=== PATIENT | male | born 1970 | race American Indian/Alaskan Native ===

== ENCOUNTER 2016-12-08 18:24 | Emergency (ER) | payer SELFPAY | END 2016-12-08 20:40 | disposition left against medical advice (07) | LOC: ED 18:24 | DX: Z53.21 Procedure and treatment not carried out due to patient leaving prior to being seen by health care provider (principal) ==

== ENCOUNTER 2020-08-25 08:12 | Inpatient (IN) | payer OTHER ==
[2020-08-25 09:14] LABS: Bacteria,Urine 1+ /HPF (Negative); Bilirubin,Urine NEG (Negative); Blood,Urine NEG (Negative); Color,Urine Amber (Yellow); Mucus,Urine 3+ /HPF
[2020-08-25 09:50] LABS: Hematocrit 48.1 % (35.5-45.6); Hemoglobin 16.8 gm/dl (11.8-15.2); Mean Corpuscular HGB Conc 35 % (32-34); Mean Corpuscular Volume 95 fl (84-94); Red Blood Count 5.07 M/mm3 (3.65-5.03); Red Cell Distribution Width 14.2 % (13.2-15.2)
[2020-08-25 10:14] LABS: Alanine Aminotransferase 25 units/L (7-56); Albumin 5.3 g/dL (3.9-5); BUN/Creatinine Ratio 21; Blood Urea Nitrogen 25 mg/dL (9-20); Calcium 10.7 mg/dL (8.4-10.2); Hemolysis Index 2
[2020-08-25 11:48] LABS: Large Platelets Rare; Platelet Clumps Rare; Platelet Estimate Consistent w Auto; RBC Morphology Normal; Total Cells Counted 100
[2020-08-25 13:01] LABS: Platelet Count 132 K/mm3 (140-440)
[2020-08-25] MEDS ORDERED: FAMOTIDINE 20 MG/2 ML INJ IV ONE (14:17)
[2020-08-25] MEDS ORDERED: SODIUM CHLORIDE 0.9% 1000 ML 1,000 ML IV ONE ×2 (14:17→16:31)
[2020-08-25] MEDS ORDERED: ONDANSETRON 4 MG/2 ML INJ IV ONE (14:17)
--- NOTE | 2020-08-25 16:23 | Cat Scan Report ---
CT ABDOMEN AND PELVIS WITH CONTRAST INDICATION / CLINICAL INFORMATION: Abdominal distention. TECHNIQUE: Axial CT images were obtained through the abdomen and pelvis after 100 cc Omnipaque [address] scans at this location are performed using CT dose reduction for ALARA by means of automated exposure control. COMPARISON: None available. FINDINGS: LOWER CHEST: No significant abnormality. LIVER: No significant abnormality. GALLBLADDER: Contracted and not well evaluated. BILE DUCTS: No significant abnormality. PANCREAS: No significant abnormality. SPLEEN: No significant abnormality. ADRENALS: No significant abnormality. RIGHT KIDNEY / URETER: No significant abnormality. LEFT KIDNEY / URETER: No significant abnormality. STOMACH / SMALL BOWEL: No significant abnormality of the stomach. Generalized moderate dilatation of the small bowel is noted with fluid seen throughout the majority of the small bowel along with scatte red air-fluid levels. There is a suspected transition point in the right lower quadrant along the ter jono ileum approximately at the level of image 56 of series 4. No other significant abnormality is n oted. COLON: No significant abnormality. APPENDIX: No significant abnormality. PERITONEUM: No free fluid. No free air. No fluid collection. LYMPH NODES: No significant adenopathy. AORTA / ARTERIES: The aorta is normal in caliber with moderate generalized atherosclerosis. IVC / VEINS: No significant abnormality. URINARY BLADDER: No significant abnormality. REPRODUCTIVE ORGANS: No significant abnormality. ADDITIONAL FINDINGS: None. SKELETAL SYSTEM: No significant abnormality. IMPRESSION: 1. Small bowel obstruction with a suspected transition point in the right lower quadrant as above. 2. No other acute findings. Signer Name: Davis García MD Signed: 08/25/2020 4:19 PM Workstation Name: [id number]
[2020-08-25] MEDS ORDERED: MORPHINE 4 MG/1 ML INJ IV ONE (16:31)
[2020-08-25] MEDS ORDERED: LORazepam 2 MG/ML VIAL IV ONE (16:31)
--- NOTE | 2020-08-25 16:33 | History and Physical Report ---
History of Present Illness Chief complaint: My stomach hurts History of present illness: 49 YO Male with HTN, CAD S/P Stent Placement, [place], Nicotine Dependence presents to ED for evaluation. Patient reports "my stomach hurts". Patient states that he has experienced abdominal discomfort, distention, and unable to keep food down over the past 2 days with persistent symptoms over the same timeframe. Patient denies flatus as well as bowel movement during the same timeframe. Patient transported to [facility] via private vehicle for further care and evaluation of the aforementioned symptoms. The patient was seen and evaluated in the emergency department. All lab and imaging studies reviewed. Patient underwent CT scan of the abdomen pelvis and was found to have a small bowel obstruction, volume depletion, as well as hyponatremia. Patient admitted to surgical floor and treated with bowel rest and IV fluid resuscitation therapy, as well as pain control. Surgical team consulted in ED. Patient denies fever, chills, chest pain, palpitation, productive cough, skin rash, recent contact, or known exposure to COVID-19. Prior admission on 07/02/2015 reviewed. All medication listed at time of admission has been reconciled. Past History Past Medical History: hypertension Past Surgical History: Other (Stent placement) Social history: single, smoking Family history: hypertension Medications and Allergies Allergies Allergy/AdvReac Type Severity Reaction Status Date / Time No Known Allergies Allergy Verified 08/25/20 08:15 Home Medications Medication Instructions Recorded Confirmed Last Taken Type LORazepam [Ativan] 1 mg PO Q4H PRN #30 tablet 06/23/15 Unknown Rx carvediloL [Coreg] 6.25 mg PO BID #60 tablet 06/23/15 Unknown Rx lisinopriL [Zestril TAB] 10 mg PO QDAY #30 tablet 06/23/15 Unknown Rx Active Meds: Active Medications Sodium Chloride (Nacl 0.9% 1000 Ml) 1,000 mls @ 250 mls/hr IV ONCE ONE Stop: 08/25/20 20:30 Review of Systems Constitutional: anorexia, no weight loss, no weight gain, no chills, no sweats Ears, nose, mouth and throat: no ear pain, no ear discharge, no tinnitis, no decreased hearing Cardiovascular: no chest pain, no orthopnea, no rapid/irregular heart beat, no edema, no lightheadedness Respiratory: no cough, no cough with sputum, no shortness of breath, no dyspnea on exertion Gastrointestinal: abdominal pain, no constipation, no hematemesis, no heartburn, no belching Genitourinary Male: no hematuria, no nocturia Rectal: no pain, no incontinence, no bleeding Musculoskeletal: no neck stiffness, no shooting arm pain, no arm numbness/tingling, no shooting leg pain, no leg numbness/tingling Integumentary: no rash, no pruritis, no wounds, no jaundice, no boils Neurological: no head injury, no transient paralysis, no weakness, no numbness, no tingling, no seizures, no syncope, no tremors Psychiatric: no anxiety, no memory loss, no sleep disturbances, no insomnia, no hypersomnia, no change in libido, no disorientation Endocrine: no cold intolerance, no heat intolerance, no excessive thirst, no polydipsia, no nocturia, no excessive sweating Hematologic/Lymphatic: no easy bruising, no easy bleeding, no lymphadenopathy Allergic/Immunologic: no urticaria, no persistent infections, no anaphylaxis Exam - Constitutional Vitals: Temp Pulse Resp BP Pulse Ox 98.9 F 129 H 20 150/105 96 08/25/20 08:20 08/25/20 08:20 08/25/20 08:20 08/25/20 08:20 08/25/20 08:20 General appearance: Present: mild distress - EENT Eyes: Present: PERRL ENT: hearing intact, clear oral mucosa - Neck Neck: Present: supple, normal ROM - Respiratory Respiratory effort: normal Respiratory: bilateral: CTA - Cardiovascular Heart Sounds: Present: S1 & S2. Absent: rub, click - Extremities Extremities: pulses symmetrical, No edema Peripheral Pulses: within normal limits - Abdominal General gastrointestinal: Present: soft, non-tender, distended, normal bowel nnamdi nds, hypoactive bowel sounds Male genitourinary: Present: normal - Integumentary Integumentary: Present: clear, warm, dry - Musculoskeletal Musculoskeletal: gait normal, strength equal bilaterally - Psychiatric Psychiatric: appropriate mood/affect, intact judgment & insight - Neurologic Neurologic: CNII-XII intact, moves all extremities Results - Labs CBC & Chem 7: 08/25/20 09:15 08/25/20 09:15 Labs: Abnormal lab results 06/10/21 06/10/21 06/10/21 Range/Units 08:34 09:15 09:15 RBC 5.07 H (3.65-5.03) M/mm3 Hgb 16.8 H (11.8-15.2) gm/dl Hct 48.1 H (35.5-45.6) % MCV 95 H (84-94) fl MCH 33 H (28-32) pg MCHC 35 H (32-34) % Plt Count 132 L (140-440) K/mm3 Monocytes % (Manual) 16.0 H (0.0-7.3) % Lymphocytes # (Manual) 1.1 L (1.2-5.4) K/mm3 Sodium 133 L (137-145) mmol/L Chloride 88.8 L (98-107) mmol/L Carbon Dioxide 32 H (22-30) mmol/L BUN 25 H (9-20) mg/dL Glucose 117 H (75-100) mg/dL Calcium 10.7 H (8.4-10.2) mg/dL Total Bilirubin 1.50 H (0.1-1.2) mg/dL Total Protein 8.4 H (6.3-8.2) g/dL Albumin 5.3 H (3.9-5) g/dL Urine WBC (Auto) 7.0 H (0.0-6.0) /HPF Assessment and Plan - Patient Problems (1) Small bowel obstruction due to adhesions Current Visit: Yes Status: Acute Plan to address problem: CT scan abdomen and pelvis, serial abdominal exam, bowel rest, IV fluid resuscitation therapy, surgical team consulted in ED, NG tube placement as per surgical team. (2) Nicotine dependence Current Visit: Yes Status: Acute Qualifiers: Nicotine product type: cigarettes Substance use status: in withdrawal Qualified Code(s): F17.213 - Nicotine dependence, cigarettes, with withdrawal Plan to address problem: Smoking cessation counseling, supportive care, behavior change counseling, +15 minutes. (3) Hyponatremia Current Visit: Yes Status: Acute Plan to address problem: IV fluid resuscitation therapy, BMP, repeat BMP in a.m. (4) CAD (coronary artery disease) Current Visit: Yes Status: Acute Plan to address problem: Risk factor reduction, supportive care. (5) DVT prophylaxis Current Visit: Yes Status: Acute Plan to address problem: SCD to bilateral lower extremities while in bed, patient is ambulatory
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
[2020-08-25] MEDS ORDERED: ALBUTEROL 2.5 MG/3 ML NEBU IH PRN (17:12)
[2020-08-25] MEDS ORDERED: ACETAMINOPHEN 325 MG TAB PO PRN (17:12)
[2020-08-25] MEDS ORDERED: SODIUM CHLORIDE 0.9% 1000 ML 1,000 ML IV SCH (17:30)
[2020-08-25] MEDS: D5NS W/KCL 20 MEQ 20 MEQ/1,000 ML BAG IV SCH (20:40)
[2020-08-25] MEDS: hydrALAZINE 20 MG/1 ML INJ IV PRN (20:43)
[2020-08-25] MEDS ORDERED: MORPHINE 2 MG/1 ML INJ IV ONE (22:30)
[2020-08-26] MEDS: D5NS W/KCL 20 MEQ 20 MEQ/1,000 ML BAG IV SCH ×2 (04:47→20:25)
[2020-08-26] MEDS: hydrALAZINE 20 MG/1 ML INJ IV PRN (04:48)
[2020-08-26] MEDS: ONDANSETRON 4 MG/2 ML INJ IV PRN (04:48)
[2020-08-26] MEDS: MORPHINE 2 MG/1 ML INJ IV PRN ×2 (04:49→22:55)
[2020-08-26 05:08] LABS: Hematocrit 42.3 % (35.5-45.6); Hemoglobin 14.5 gm/dl (11.8-15.2); Mean Corpuscular HGB Conc 34 % (32-34); Mean Corpuscular Volume 95 fl (84-94); Red Blood Count 4.48 M/mm3 (3.65-5.03); Red Cell Distribution Width 13.9 % (13.2-15.2)
[2020-08-26 05:10] LABS: Platelet Count 124 K/mm3 (140-440)
[2020-08-26 05:24] LABS: Alanine Aminotransferase 19 units/L (7-56); Albumin 4.2 g/dL (3.9-5); BUN/Creatinine Ratio 26; Blood Urea Nitrogen 21 mg/dL (9-20); Calcium 9.3 mg/dL (8.4-10.2); Hemolysis Index 3
[2020-08-26 07:37] LABS: Total Cells Counted 100
[2020-08-26 07:38] LABS: Large Platelets Few; Platelet Estimate Consistent w Auto; RBC Morphology Normal
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
[2020-08-26] MEDS ORDERED: hydrALAZINE 20 MG/1 ML INJ IV PRN (10:00)
--- NOTE | 2020-08-26 11:45 | Progress Note ---
Assessment and Plan Assessment and plan: 49 YO Male with HTN, CAD S/P Stent Placement, VA, Nicotine Dependence presents to ED for evaluation. Patient reports "my stomach hurts". Patient states that he has experienced abdominal discomfort, distention, and unable to keep food down over the past 2 days with persistent symptoms over the same timeframe. Patient denies flatus as well as bowel movement during the same timeframe. Patient transported to [facility] via private vehicle for further care and evaluation of the aforementioned symptoms. The patient was seen and evaluated in the emergency department. All lab and imaging studies reviewed. Patient underwent CT scan of the abdomen pelvis and was found to have a small bowel obstruction, volume depletion, as well as hyponatremia. Patient admitted to surgical floor and treated with bowel rest and IV fluid resuscitation therapy, as well as pain control. Surgical team consulted in ED. Patient denies fever, chills, chest pain, palpitation, productive cough, skin rash, recent contact, or known exposure to COVID-19. Prior admission on 07/02/2015 reviewed. All medication listed at time of admission has been reconciled. 08/26: Continue supportive care. Patient reports to me that he drinks alcohol and has withdrawal symptoms when not drinking. We will start him on CIWA protocol in addition to banana bag with vitamins. Continue managementindicated by surgery. Patient has mild elevation in total bilirubin is also a concern for possible underlying UTI. Blood pressure mildly elevated will also address this. 15 minutes counseling provided to the patient on lifestyle modification and preventive care including tobacco use and alcohol use. He verbalized understanding (1) Small bowel obstruction due to adhesions Current Visit: Yes Status: Acute Plan to address problem: CT scan abdomen and pelvis, serial abdominal exam, bowel rest, IV fluid resuscitation therapy, surgical team consulted in ED, NG tube placement as per surgical team. (2) Nicotine dependence Current Visit: Yes Status: Acute Qualifiers: Nicotine product type: cigarettes Substance use status: in withdrawal Qualified Code(s): F17.213 - Nicotine dependence, cigarettes, with withdrawal Plan to address problem: Smoking cessation counseling, supportive care, behavior change counseling, +15 minutes. (3) Hyponatremia Current Visit: Yes Status: Acute Plan to address problem: IV fluid resuscitation therapy, BMP, repeat BMP in a.m. (4) CAD (coronary artery disease) Current Visit: Yes Status: Acute Plan to address problem: Risk factor reduction, supportive care. (5) EtOH use disorder CIWA protocol as indicated above (6) DVT prophylaxis Current Visit: Yes Status: Acute Plan to address problem: SCD to bilateral lower extremities while in bed, patient is ambulatory History Interval history: Patient seen and examined, still with abdominal pain and also reports irration at the back of throat site of NGT. Hospitalist Physical - Physical exam Narrative exam: General appearance: Present: mild distress, NGT inplace - EENT Eyes: Present: PERRL ENT: hearing intact, clear oral mucosa - Neck Neck: Present: supple, normal ROM - Respiratory Respiratory effort: normal Respiratory: bilateral: CTA - Cardiovascular Heart Sounds: Present: S1 & S2. Absent: rub, click - Extremities Extremities: pulses symmetrical, No edema Peripheral Pulses: within normal limits - Abdominal General gastrointestinal: Present: soft, non-tender, distended, normal bowel sounds, hypoactive bowel sounds,. Soft easily reducible periumbilical hernia. Male genitourinary: Present: normal - Integumentary Integumentary: Present: clear, warm, dry - Musculoskeletal Musculoskeletal: gait normal, strength equal bilaterally - Psychiatric Psychiatric: appropriate mood/affect, intact judgment & insight - Neurologic Neurologic: CNII-XII intact, moves all extremities - Constitutional Vitals: Temp Pulse Resp BP Pulse Ox 98.6 F 85 22 155/100 98 08/26/20 07:25 08/26/20 07:25 08/26/20 07:25 08/26/20 07:25 08/26/20 10:50 General appearance: Present: mild distress Results - Labs CBC & Chem 7: 08/26/20 04:20 08/26/20 04:20 Labs: Laboratory Last Values WBC 4.6 K/mm3 (4.5-11.0) 08/26/20 04:20 RBC 4.48 M/mm3 (3.65-5.03) 08/26/20 04:20 Hgb 14.5 gm/dl (11.8-15.2) 08/26/20 04:20 Hct 42.3 % (35.5-45.6) 08/26/20 04:20 MCV 95 fl (84-94) H 08/26/20 04:20 MCH 32 pg (28-32) 08/26/20 04:20 MCHC 34 % (32-34) 08/26/20 04:20 RDW 13.9 % (13.2-15.2) 08/26/20 04:20 Plt Count 124 K/mm3 (140-440) L 08/26/20 04:20 [place] % (Auto) [employer] 08/26/20 04:20 Add Manual Diff Complete 08/26/20 04:20 Total Counted 100 08/26/20 04:20 Seg Neuts % (Manual) 67.0 % (40.0-70.0) 08/26/20 04:20 Lymphocytes % (Manual) 21.0 % (13.4-35.0) 08/26/20 04:20 Monocytes % (Manual) 12.0 % (0.0-7.3) H 08/26/20 04:20 Eosinophils % (Manual) 1.0 % (0.0-4.3) 08/25/20 09:15 Basophils % (Manual) 1.0 % (0.0-1.8) 08/25/20 09:15 Nucleated RBC % Not Reportable 08/26/20 04:20 Seg Neutrophils # Man 3.1 K/mm3 (1.8-7.7) 08/26/20 04:20 Band Neutrophils # 0.0 K/mm3 08/26/20 04:20 Lymphocytes # (Manual) 1.0 K/mm3 (1.2-5.4) L 08/26/20 04:20 Abs React Lymphs (Man) 0.0 K/mm3 08/26/20 04:20 Monocytes # (Manual) 0.6 K/mm3 (0.0-0.8) 08/26/20 04:20 Eosinophils # (Manual) 0.0 K/mm3 (0.0-0.4) 08/26/20 04:20 Basophils # (Manual) 0.0 K/mm3 (0.0-0.1) 08/26/20 04:20 Metamyelocytes # 0.0 K/mm3 08/26/20 04:20 Myelocytes # 0.0 K/mm3 08/26/20 04:20 Promyelocytes # 0.0 K/mm3 08/26/20 04:20 Blast Cells # 0.0 K/mm3 08/26/20 04:20 WBC Morphology Not Reportable 08/26/20 04:20 Hypersegmented Neuts Not Reportable 08/26/20 04:20 Hyposegmented Neuts Not Reportable 08/26/20 04:20 Hypogranular Neuts Not Reportable 08/26/20 04:20 Smudge Cells Not Reportable 08/26/20 04:20 Toxic Granulation Not Reportable 08/26/20 04:20 Toxic Vacuolation Not Reportable 08/26/20 04:20 Dohle Bodies Not Reportable 08/26/20 04:20 Pelger-Huet Anomaly Not Reportable 08/26/20 04:20 Layla Rods Not Reportable 08/26/20 04:20 Platelet Estimate Consistent w auto 08/26/20 04:20 Clumped Platelets Not Reportable 08/26/20 04:20 Plt Clumps, EDTA Not Reportable 08/26/20 04:20 Large Platelets Few 08/26/20 04:20 Giant Platelets Not Reportable 08/26/20 04:20 Platelet Satelliting Not Reportable 08/26/20 04:20 Plt Morphology Comment Not Reportable 08/26/20 04:20 RBC Morphology Normal 08/26/20 04:20 Dimorphic RBCs Not Reportable 08/26/20 04:20 Polychromasia Not Reportable 08/26/20 04:20 Hypochromasia Not Reportable 08/26/20 04:20 Poikilocytosis Not Reportable 08/26/20 04:20 Anisocytosis Not Reportable 08/26/20 04:20 Microcytosis Not Reportable 08/26/20 04:20 Macrocytosis Not Reportable 08/26/20 04:20 Spherocytes Not Reportable 08/26/20 04:20 Pappenheimer Bodies Not Reportable 08/26/20 04:20 Sickle Cells Not Reportable 08/26/20 04:20 Target Cells Not Reportable 08/26/20 04:20 Tear Drop Cells Not Reportable 08/26/20 04:20 Ovalocytes Not Reportable 08/26/20 04:20 Helmet Cells Not Reportable 08/26/20 04:20 [place] Bodies Not Reportable 08/26/20 04:20 [place] Rings Not Reportable 08/26/20 04:20 [place]yler Cells Not Reportable 08/26/20 04:20 Bite Cells Not Reportable 08/26/20 04:20 Crenated Cell Not Reportable 08/26/20 04:20 Elliptocytes Not Reportable 08/26/20 04:20 Acanthocytes (Spur) Not Reportable 08/26/20 04:20 Rouleaux Not Reportable 08/26/20 04:20 Hemoglobin C Crystals Not Reportable 08/26/20 04:20 Schistocytes Not Reportable 08/26/20 04:20 Malaria parasites Not Reportable 08/26/20 04:20 Adam Bodies Not Reportable 08/26/20 04:20 Hem Pathologist Commnt No 08/26/20 04:20 Sodium 135 mmol/L (137-145) L 08/26/20 04:20 Potassium 3.7 mmol/L (3.6-5.0) 08/26/20 04:20 Chloride 96.4 mmol/L (98-107) L 08/26/20 04:20 Carbon Dioxide 29 mmol/L (22-30) 08/26/20 04:20 Anion Gap 13 mmol/L 08/26/20 04:20 BUN 21 mg/dL (9-20) H 08/26/20 04:20 Creatinine 0.8 mg/dL (0.8-1.3) 08/26/20 04:20 Estimated GFR > 60 ml/min 08/26/20 04:20 BUN/Creatinine Ratio 26 % 08/26/20 04:20 Glucose 113 mg/dL (75-100) H 08/26/20 04:20 POC Glucose 124 mg/dL (70-105) H 08/25/20 22:50 Calcium 9.3 mg/dL (8.4-10.2) 08/26/20 04:20 Total Bilirubin 1.30 mg/dL (0.1-1.2) H 08/26/20 04:20 AST 18 units/L (5-40) 08/26/20 04:20 ALT 19 units/L (7-56) 08/26/20 04:20 Alkaline Phosphatase 60 units/L (35-129) 08/26/20 04:20 Total Protein 7.1 g/dL (6.3-8.2) 08/26/20 04:20 Albumin 4.2 g/dL (3.9-5) 08/26/20 04:20 Albumin/Globulin Ratio 1.4 % 08/26/20 04:20 Urine Color [place] (Yellow) 08/25/20 08:34 Urine Turbidity Slightly-cloudy (Clear) 08/25/20 08:34 Urine pH 5.0 (5.0-7.0) 08/25/20 08:34 Ur Specific [place] 1.027 (1.003-1.030) 08/25/20 08:34 Urine Protein 100 mg/dl mg/dL (Negative) 08/25/20 08:34 Urine Glucose (UA) Neg mg/dL (Negative) 08/25/20 08:34 Urine Ketones Tr mg/dL (Negative) 08/25/20 08:34 Urine Blood Neg (Negative) 08/25/20 08:34 Urine Nitrite Neg (Negative) 08/25/20 08:34 Urine Bilirubin Neg (Negative) 08/25/20 08:34 Urine Urobilinogen 4.0 mg/dL (<2.0) 08/25/20 08:34 Ur Leukocyte Esterase Neg (Negative) 08/25/20 08:34 Urine WBC (Auto) 7.0 /HPF (0.0-6.0) H 08/25/20 08:34 Urine RBC (Auto) 2.0 /HPF (0.0-6.0) 08/25/20 08:34 U Epithel Cells (Auto) 1.0 /HPF (0-13.0) 08/25/20 08:34 Urine Bacteria (Auto) 1+ /HPF (Negative) 08/25/20 08:34 Urine Mucus 3+ /HPF 08/25/20 08:34 Yun/IV: Voiding Method Toilet Active Medications - Current Medications Current Medications: Generic Name Dose Route Start Last Admin Trade Name Freq PRN Reason Stop Dose Admin Acetaminophen 650 mg 08/25/20 17:12 Acetaminophen 325 Mg Tab PO Q4H PRN Pain MILD(1-3)/Fever >100.5/MENJIVAR Albuterol 2.5 mg 08/25/20 17:12 Albuterol 2.5 Mg/3 Ml Nebu IH Q4HRT PRN Shortness Of Breath Benzocaine/Menthol 1 each 08/26/20 11:30 Benzocaine/Menthol Lozenge MM Q2H PRN Sore Throat Enalaprilat 1.25 mg 08/26/20 12:00 Enalaprilat 2.5 Mg/2 Ml Inj IV Q6HR BRIAN Hydralazine HCl 10 mg 08/26/20 10:00 Hydralazine 20 Mg/1 Ml Inj IV Q4HR PRN Hypertension Potassium Chloride/Dextrose/Sod Cl 20 meq in 1,000 mls @ 125 mls/hr 08/25/20 18:00 08/26/20 04:47 D5w/Ns W/Kcl 20meq IV 125 mls/hr DIRECT BRIAN Administration Lorazepam 1 mg 08/25/20 17:14 Lorazepam 2 Mg/Ml Vial IV Q8H PRN Agitation Morphine Sulfate 2 mg 08/26/20 04:37 08/26/20 04:49 Morphine 2 Mg/1 Ml Inj IV 2 mg Q4H PRN Administration Pain , Severe (7-10) Ondansetron HCl 4 mg 08/25/20 17:12 08/26/20 04:48 Ondansetron 4 Mg/2 Ml Inj IV 4 mg Q8H PRN Administration Nausea And Vomiting Sodium Chloride 10 ml 08/25/20 22:00 08/26/20 10:38 Sodium Chloride 0.9% 10 Ml Flush Syringe IV Not Given BID BRIAN Sodium Chloride 10 ml 08/25/20 17:12 Sodium Chloride 0.9% 10 Ml Flush Syringe IV PRN PRN LINE FLUSH
[2020-08-26] MEDS: THIAMINE 100 MG in SODIUM CHLORIDE 0.9% 50 ML IV SCH (12:43)
[2020-08-26] MEDS: BENZOCAINE/MENTHOL LOZENGE MM PRN ×3 (12:45→20:23)
--- NOTE | 2020-08-26 13:55 | XRay Report ---
ABDOMEN 3 VIEW(S) INDICATION: Small bowel obstruction. COMPARISON: CT abdomen and pelvis with contrast performed on 08/25/2020. FINDINGS: Bowel gas pattern: Multiple dilated small bowel loops are again seen. An NG tube has been placed with the tip terminating laterally over the gastric fundus. The sidehole of the tube projects over the GE junction. Free air: None seen. Stones: None seen. Chest: No acute findings. Additional Findings: No additional significant findings. IMPRESSION: 1. Similar findings of a small bowel obstruction without a new acute abnormality of the abdomen. 2. Interval NG tube placement as above. Advancement of the tube by 4 cm should result in the sidehole of the tube being located in the stomach. Signer Name: Davis García MD Signed: 08/26/2020 1:29 PM Workstation Name: [id number]
[2020-08-26] MEDS: ENALAPRILAT 2.5 MG/2 ML INJ IV SCH ×2 (13:58→18:57)
[2020-08-27] MEDS: ENALAPRILAT 2.5 MG/2 ML INJ IV SCH ×4 (00:29→18:12)
[2020-08-27] MEDS: D5NS W/KCL 20 MEQ 20 MEQ/1,000 ML BAG IV SCH ×3 (05:27→22:28)
[2020-08-27] MEDS: MORPHINE 2 MG/1 ML INJ IV PRN (05:30)
[2020-08-27] MEDS: ONDANSETRON 4 MG/2 ML INJ IV PRN (05:37)
[2020-08-27 06:23] LABS: Hematocrit 43.3 % (35.5-45.6); Mean Corpuscular HGB Conc 35 % (32-34); Mean Corpuscular Volume 96 fl (84-94); Platelet Count 121 K/mm3 (140-440); Red Blood Count 4.51 M/mm3 (3.65-5.03); Red Cell Distribution Width 13.9 % (13.2-15.2)
[2020-08-27 06:45] LABS: BUN/Creatinine Ratio 19; Blood Urea Nitrogen 15 mg/dL (9-20); Hemolysis Index 4
--- NOTE | 2020-08-27 08:20 | XRay Report ---
ABDOMEN 2 VIEW(S) WITH PA CHEST INDICATION / CLINICAL INFORMATION: sbo. COMPARISON: Abdominal radiograph one day prior FINDINGS: CHEST: The cardiomediastinal silhouette is unremarkable. The lungs are clear. No pleural effusion. No pneumothorax. TUBES / LINES: Enteric tube remains with tip terminating in the proximal stomach and sidehole at the level of the gastroesophageal junction. BOWEL GAS PATTERN: There are persistent mildly dilated loops of small bowel with associated air-fluid levels on the upright film, overall similar to slightly improved compared with prior examination. FREE AIR / EXTRALUMINAL GAS: None seen. ADDITIONAL FINDINGS: No significant additional findings. IMPRESSION: 1. Persistent small bowel obstruction which is similar to slightly improved compared with prior exami [facility] [place]. 2. Sidehole of the enteric tube remains at the level of the gastroesophageal junction and could be ad vanced by 3 to 4 cm for more optimal positioning. Signer Name: Yazmin Blanton MD Signed: 08/27/2020 8:16 AM Workstation Name: [id number]
[2020-08-27] MEDS: THIAMINE 100 MG in SODIUM CHLORIDE 0.9% 50 ML IV SCH (12:30)
[2020-08-27] MEDS: BENZOCAINE/MENTHOL LOZENGE MM PRN ×3 (12:30→20:24)
--- NOTE | 2020-08-27 12:30 | Progress Note ---
Assessment and Plan Assessment and plan: 49 YO Male with HTN, CAD S/P Stent Placement, CA, Nicotine Dependence presents to ED for evaluation. Patient reports "my stomach hurts". Patient states that he has experienced abdominal discomfort, distention, and unable to keep food down over the past 2 days with persistent symptoms over the same timeframe. Patient denies flatus as well as bowel movement during the same timeframe. Patient transported to [facility] via private vehicle for further care and evaluation of the aforementioned symptoms. The patient was seen and evaluated in the emergency department. All lab and imaging studies reviewed. Patient underwent CT scan of the abdomen pelvis and was found to have a small bowel obstruction, volume depletion, as well as hyponatremia. Patient admitted to surgical floor and treated with bowel rest and IV fluid resuscitation therapy, as well as pain control. Surgical team consulted in ED. Patient denies fever, chills, chest pain, palpitation, productive cough, skin rash, recent contact, or known exposure to COVID-19. Prior admission on 07/02/2015 reviewed. All medication listed at time of admission has been reconciled. 08/26: Continue supportive care. Patient reports to me that he drinks alcohol and has withdrawal symptoms when not drinking. We will start him on CIWA protocol in addition to banana bag with vitamins. Continue managementindicated by surgery. Patient has mild elevation in total bilirubin is also a concern for possible underlying UTI. Blood pressure mildly elevated will also address this. 15 minutes counseling provided to the patient on lifestyle modification and preventive care including tobacco use and alcohol use. He verbalized understanding 08/27: Continue supportive care. Follow imaging studies. I discussed with the sister and the patient's mother in detail. Hypokalemia. (1) Small bowel obstruction due to adhesions Current Visit: Yes Status: Acute Plan to address problem: CT scan abdomen and pelvis, serial abdominal exam, bowel rest, IV fluid re suscitation therapy, surgical team consulted in ED, NG tube placement as per surgical team. (2) Nicotine dependence Current Visit: Yes Status: Acute Qualifiers: Nicotine product type: cigarettes Substance use status: in withdrawal Qualified Code(s): F17.213 - Nicotine dependence, cigarettes, with withdrawal Plan to address problem: Smoking cessation counseling, supportive care, behavior change counseling, +15 minutes. (3) Hyponatremia Current Visit: Yes Status: Acute Plan to address problem: IV fluid resuscitation therapy, BMP, repeat BMP in a.m. (4) CAD (coronary artery disease) Current Visit: Yes Status: Acute Plan to address problem: Risk factor reduction, supportive care. (5) EtOH use disorder CIWA protocol as indicated above (6) DVT prophylaxis Current Visit: Yes Status: Acute Plan to address problem: SCD to bilateral lower extremities while in bed, patient is ambulatory History Interval history: Patient seen and examined, still with abdominal pain Although improving some. Hospitalist Physical - Physical exam Narrative exam: General appearance: Present: mild distress, NGT inplace - EENT Eyes: Present: PERRL ENT: hearing intact, clear oral mucosa - Neck Neck: Present: supple, normal ROM - Respiratory Respiratory effort: normal Respiratory: bilateral: CTA - Cardiovascular Heart Sounds: Present: S1 & S2. Absent: rub, click - Extremities Extremities: pulses symmetrical, No edema Peripheral Pulses: within normal limits - Abdominal General gastrointestinal: Present: soft, non-tender, distended, normal bowel sounds, hypoactive bowel sounds,. Soft easily reducible periumbilical hernia. Male genitourinary: Present: normal - Integumentary Integumentary: Present: clear, warm, dry - Musculoskeletal Musculoskeletal: gait normal, strength equal bilaterally - Psychiatric Psychiatric: appropriate mood/affect, intact judgment & insight - Neurologic Neurologic: CNII-XII intact, moves all extremities - Constitutional Vitals: Temp Pulse Resp BP Pulse Ox 98.3 F 73 16 161/97 98 08/27/20 12:05 08/27/20 12:05 08/27/20 12:05 08/27/20 12:05 08/27/20 12:05 General appearance: Present: mild distress Results - Labs CBC & Chem 7: 08/27/20 05:23 08/27/20 05:23 Labs: Laboratory Last Values WBC 6.6 K/mm3 (4.5-11.0) 08/27/20 05:23 RBC 4.51 M/mm3 (3.65-5.03) 08/27/20 05:23 Hgb 15.0 gm/dl (11.8-15.2) 08/27/20 05:23 Hct 43.3 % (35.5-45.6) 08/27/20 05:23 MCV 96 fl (84-94) H 08/27/20 05:23 MCH 33 pg (28-32) H 08/27/20 05:23 MCHC 35 % (32-34) H 08/27/20 05:23 RDW 13.9 % (13.2-15.2) 08/27/20 05:23 Plt Count 121 K/mm3 (140-440) L 08/27/20 05:23 [place] % (Auto) Direct Support Professional Home [facility] 08/26/20 04:20 Add Manual Diff Complete 08/26/20 04:20 Total Counted 100 08/26/20 04:20 Seg Neuts % (Manual) 67.0 % (40.0-70.0) 08/26/20 04:20 Lymphocytes % (Manual) 21.0 % (13.4-35.0) 08/26/20 04:20 Monocytes % (Manual) 12.0 % (0.0-7.3) H 08/26/20 04:20 Eosinophils % (Manual) 1.0 % (0.0-4.3) 08/25/20 09:15 Basophils % (Manual) 1.0 % (0.0-1.8) 08/25/20 09:15 Nucleated RBC % Not Reportable 08/26/20 04:20 Seg Neutrophils # Man 3.1 K/mm3 (1.8-7.7) 08/26/20 04:20 Band Neutrophils # 0.0 K/mm3 08/26/20 04:20 Lymphocytes # (Manual) 1.0 K/mm3 (1.2-5.4) L 08/26/20 04:20 Abs React Lymphs (Man) 0.0 K/mm3 08/26/20 04:20 Monocytes # (Manual) 0.6 K/mm3 (0.0-0.8) 08/26/20 04:20 Eosinophils # (Manual) 0.0 K/mm3 (0.0-0.4) 08/26/20 04:20 Basophils # (Manual) 0.0 K/mm3 (0.0-0.1) 08/26/20 04:20 Metamyelocytes # 0.0 K/mm3 08/26/20 04:20 Myelocytes # 0.0 K/mm3 08/26/20 04:20 Promyelocytes # 0.0 K/mm3 08/26/20 04:20 Blast Cells # 0.0 K/mm3 08/26/20 04:20 WBC Morphology Not Reportable 08/26/20 04:20 Hypersegmented Neuts Not Reportable 08/26/20 04:20 Hyposegmented Neuts Not Reportable 08/26/20 04:20 Hypogranular Neuts Not Reportable 08/26/20 04:20 Smudge Cells Not Reportable 08/26/20 04:20 Toxic Granulation Not Reportable 08/26/20 04:20 Toxic Vacuolation Not Reportable 08/26/20 04:20 Dohle Bodies Not Reportable 08/26/20 04:20 Pelger-Huet Anomaly Not Reportable 08/26/20 04:20 Layla Rods Not Reportable 08/26/20 04:20 Platelet Estimate Consistent w auto 08/26/20 04:20 Clumped Platelets Not Reportable 08/26/20 04:20 Plt Clumps, EDTA Not Reportable 08/26/20 04:20 Large Platelets Few 08/26/20 04:20 Giant Platelets Not Reportable 08/26/20 04:20 Platelet Satelliting Not Reportable 08/26/20 04:20 Plt Morphology Comment Not Reportable 08/26/20 04:20 RBC Morphology Normal 08/26/20 04:20 Dimorphic RBCs Not Reportable 08/26/20 04:20 Polychromasia Not Reportable 08/26/20 04:20 Hypochromasia Not Reportable 08/26/20 04:20 Poikilocytosis Not Reportable 08/26/20 04:20 Anisocytosis Not Reportable 08/26/20 04:20 Microcytosis Not Reportable 08/26/20 04:20 Macrocytosis Not Reportable 08/26/20 04:20 Spherocytes Not Reportable 08/26/20 04:20 Pappenheimer Bodies Not Reportable 08/26/20 04:20 Sickle Cells Not Reportable 08/26/20 04:20 Target Cells Not Reportable 08/26/20 04:20 Tear Drop Cells Not Reportable 08/26/20 04:20 Ovalocytes Not Reportable 08/26/20 04:20 Helmet Cells Not Reportable 08/26/20 04:20 [place]-Angie Bodies Not Reportable 08/26/20 04:20 Nezperce Rings Not Reportable 08/26/20 04:20 Kyler Cells Not Reportable 08/26/20 04:20 Bite Cells Not Reportable 08/26/20 04:20 Crenated Cell Not Reportable 08/26/20 04:20 Elliptocytes Not Reportable 08/26/20 04:20 Acanthocytes (Spur) Not Reportable 08/26/20 04:20 Rouleaux Not Reportable 08/26/20 04:20 Hemoglobin C Crystals Not Reportable 08/26/20 04:20 Schistocytes Not Reportable 08/26/20 04:20 Malaria parasites Not Reportable 08/26/20 04:20 Adam Bodies Not Reportable 08/26/20 04:20 Hem Pathologist Commnt No 08/26/20 04:20 Sodium 143 mmol/L (137-145) D 08/27/20 05:23 Potassium 3.3 mmol/L (3.6-5.0) L 08/27/20 05:23 Chloride 97.9 mmol/L (98-107) L 08/27/20 05:23 Carbon Dioxide 32 mmol/L (22-30) H 08/27/20 05:23 Anion Gap 16 mmol/L 08/27/20 05:23 BUN 15 mg/dL (9-20) 08/27/20 05:23 Creatinine 0.8 mg/dL (0.8-1.3) 08/27/20 05:23 Estimated GFR > 60 ml/min 08/27/20 05:23 BUN/Creatinine Ratio 19 % 08/27/20 05:23 Glucose 108 mg/dL (75-100) H 08/27/20 05:23 POC Glucose 124 mg/dL (70-105) H 08/25/20 22:50 Calcium 10.0 mg/dL (8.4-10.2) 08/27/20 05:23 Total Bilirubin 1.30 mg/dL (0.1-1.2) H 08/26/20 04:20 AST 18 units/L (5-40) 08/26/20 04:20 ALT 19 units/L (7-56) 08/26/20 04:20 Alkaline Phosphatase 60 units/L (35-129) 08/26/20 04:20 Total Protein 7.1 g/dL (6.3-8.2) 08/26/20 04:20 Albumin 4.2 g/dL (3.9-5) 08/26/20 04:20 Albumin/Globulin Ratio 1.4 % 08/26/20 04:20 Urine Color [place] (Yellow) 08/25/20 08:34 Urine Turbidity Slightly-cloudy (Clear) 08/25/20 08:34 Urine pH 5.0 (5.0-7.0) 08/25/20 08:34 Ur Specific [place] 1.027 (1.003-1.030) 08/25/20 08:34 Urine Protein 100 mg/dl mg/dL (Negative) 08/25/20 08:34 Urine Glucose (UA) Neg mg/dL (Negative) 08/25/20 08:34 Urine Ketones Tr mg/dL (Negative) 08/25/20 08:34 Urine Blood Neg (Negative) 08/25/20 08:34 Urine Nitrite Neg (Negative) 08/25/20 08:34 Urine Bilirubin Neg (Negative) 08/25/20 08:34 Urine Urobilinogen 4.0 mg/dL (<2.0) 08/25/20 08:34 Ur Leukocyte Esterase Neg (Negative) 08/25/20 08:34 Urine WBC (Auto) 7.0 /HPF (0.0-6.0) H 08/25/20 08:34 Urine RBC (Auto) 2.0 /HPF (0.0-6.0) 08/25/20 08:34 U Epithel Cells (Auto) 1.0 /HPF (0-13.0) 08/25/20 08:34 Urine Bacteria (Auto) 1+ /HPF (Negative) 08/25/20 08:34 Urine Mucus 3+ /HPF 08/25/20 08:34 Yun/IV: Voiding Method Toilet Active Medications - Current Medications Current Medications: Generic Name Dose Route Start Last Admin Trade Name Freq PRN Reason Stop Dose Admin Acetaminophen 650 mg 08/25/20 17:12 Acetaminophen 325 Mg Tab PO Q4H PRN Pain MILD(1-3)/Fever >100.5/MENJIVAR Albuterol 2.5 mg 08/25/20 17:12 Albuterol 2.5 Mg/3 Ml Nebu IH Q4HRT PRN Shortness Of Breath Benzocaine/Menthol 1 each 08/26/20 11:30 08/26/20 20:23 Benzocaine/Menthol Lozenge MM 1 each Q2H PRN Administration Sore Throat Enalaprilat 1.25 mg 08/26/20 12:00 08/27/20 05:32 Enalaprilat 2.5 Mg/2 Ml Inj IV 1.25 mg Q6HR BRIAN Administration Hydralazine HCl 10 mg 08/26/20 10:00 Hydralazine 20 Mg/1 Ml Inj IV Q4HR PRN Hypertension Potassium Chloride/Dextrose/Sod Cl 20 meq in 1,000 mls @ 125 mls/hr 08/25/20 18:00 08/27/20 05:27 D5w/Ns W/Kcl 20meq IV 125 mls/hr DIRECT BRIAN Administration Thiamine HCl 100 mg/ Sodium 51 mls @ 100 mls/hr 08/26/20 13:00 08/26/20 12:43 Chloride IV 100 mls/hr QDAY BRIAN Administration Lorazepam 1 mg 08/25/20 17:14 Lorazepam 2 Mg/Ml Vial IV Q8H PRN Agitation Ondansetron HCl 4 mg 08/25/20 17:12 08/27/20 05:37 Ondansetron 4 Mg/2 Ml Inj IV 4 mg Q8H PRN Administration Nausea And Vomiting Sodium Chloride 10 ml 08/25/20 22:00 08/26/20 23:06 Sodium Chloride 0.9% 10 Ml Flush Syringe IV 10 ml BID BRIAN Administration Sodium Chloride 10 ml 08/25/20 17:12 Sodium Chloride 0.9% 10 Ml Flush Syringe IV PRN PRN LINE FLUSH
--- NOTE | 2020-08-27 15:20 | Progress Note ---
Assessment and Plan 49 year old male with mechanical SBO likely due to adhesive disease from previous surgery. Afebrile and stable. Will repeat abdominal x-ray tomorrow. If shows no progress over the weekend will tentatively take to surgery on Saturday. Continue NGT decompression and NPO except ice chips. Asked the nurse to give less ice chips given his high NGT output. Subjective Date of service: 08/27/20 Narrative: no acute events overnight. Pt denies pain, and says he thinks he has passed a little bit of flatus. Abdominal x-ray this morning unchanged for dilated small bowel c/w SBO. Objective Vital Signs - 12hr 08/27/20 08/27/20 08/27/20 04:35 05:32 07:45 Temperature 98.1 F 98.4 F Pulse Rate 84 84 85 Respiratory 18 16 Rate Blood Pressure 155/105 155/105 141/86 O2 Sat by Pulse 98 97 Oximetry 08/27/20 08/27/20 12:05 13:03 Temperature 98.3 F Pulse Rate 73 74 Respiratory 16 Rate Blood Pressure 161/97 167/97 O2 Sat by Pulse 98 Oximetry - General physical appearance well developed, no distress, no pain - Respiratory normal expansion, normal respiratory effort - Abdomen soft, not tender, other (NGT dark bilious, 1300cc out last 24 hours) - Labs 08/27/20 05:23 08/27/20 05:23 Diabetes panel 08/27/20 Range/Units 05:23 Sodium 143 D (137-145) mmol/L Potassium 3.3 L (3.6-5.0) mmol/L Chloride 97.9 L (98-107) mmol/L Carbon Dioxide 32 H (22-30) mmol/L BUN 15 (9-20) mg/dL Creatinine 0.8 (0.8-1.3) mg/dL Glucose 108 H (75-100) mg/dL Calcium 10.0 (8.4-10.2) mg/dL Calcium panel 08/27/20 Range/Units 05:23 Calcium 10.0 (8.4-10.2) mg/dL Pituitary panel 08/27/20 Range/Units 05:23 Sodium 143 D (137-145) mmol/L Potassium 3.3 L (3.6-5.0) mmol/L Chloride 97.9 L (98-107) mmol/L Carbon Dioxide 32 H (22-30) mmol/L BUN 15 (9-20) mg/dL Creatinine 0.8 (0.8-1.3) mg/dL Glucose 108 H (75-100) mg/dL Calcium 10.0 (8.4-10.2) mg/dL Adrenal panel 08/27/20 Range/Units 05:23 Sodium 143 D (137-145) mmol/L Potassium 3.3 L (3.6-5.0) mmol/L Chloride 97.9 L (98-107) mmol/L Carbon Dioxide 32 H (22-30) mmol/L BUN 15 (9-20) mg/dL Creatinine 0.8 (0.8-1.3) mg/dL Glucose 108 H (75-100) mg/dL Calcium 10.0 (8.4-10.2) mg/dL
[2020-08-27] MEDS: PANTOPRAZOLE 40 MG INJ IV SCH (18:12)
[2020-08-28] MEDS: ENALAPRILAT 2.5 MG/2 ML INJ IV SCH ×4 (00:40→17:44)
[2020-08-28] MEDS: BENZOCAINE/MENTHOL LOZENGE MM PRN ×3 (06:11→21:18)
[2020-08-28] MEDS: D5NS W/KCL 20 MEQ 20 MEQ/1,000 ML BAG IV SCH ×2 (06:13→19:02)
[2020-08-28 08:47] LABS: INR 0.96 (0.87-1.13)
--- NOTE | 2020-08-28 09:24 | XRay Report ---
CHEST / ABDOMEN 1 VIEW INDICATION / CLINICAL INFORMATION: sbo. COMPARISON: Abdominal series with chest 04/29/2020 FINDINGS: SUPPORT DEVICES: Stable appearance of the gastric tube with radial lucent marker at the level of the gastroesophageal junction. HEART / MEDIASTINUM: Stable. LUNGS / PLEURA: No significant pulmonary or pleural abnormality. No pneumothorax. TUBES / LINES: As above. BOWEL GAS PATTERN: Multiple dilated loops of small bowel in the abdomen. Appearance is slightly progr essed. FREE AIR / EXTRALUMINAL GAS: None seen. ADDITIONAL FINDINGS: No significant additional findings. IMPRESSION: 1. Persistent small bowel obstruction may be slightly worse when compared to the prior radiograph. 2. Enteric tube sidehole remains at the gastroesophageal junction. Consider advancing for-5 cm. Signer Name: Jeanmarie Ceballos MD Signed: 08/28/2020 9:20 AM Workstation Name: [id number]
--- NOTE | 2020-08-28 09:25 | Progress Note ---
Assessment and Plan Assessment and plan: 49 YO Male with HTN, CAD S/P Stent Placement, [place], Nicotine Dependence presents to ED for evaluation. Patient reports "my stomach hurts". Patient states that he has experienced abdominal discomfort, distention, and unable to keep food down over the past 2 days with persistent symptoms over the same timeframe. Patient denies flatus as well as bowel movement during the same timeframe. Patient transported to [facility] via private vehicle for further care and evaluation of the aforementioned symptoms. The patient was seen and evaluated in the emergency department. All lab and imaging studies reviewed. Patient underwent CT scan of the abdomen pelvis and was found to have a small bowel obstruction, volume depletion, as well as hyponatremia. Patient admitted to surgical floor and treated with bowel rest and IV fluid resuscitation therapy, as well as pain control. Surgical team consulted in ED. Patient denies fever, chills, chest pain, palpitation, productive cough, skin rash, recent contact, or known exposure to COVID-19. Prior admission on 07/02/2015 reviewed. All medication listed at time of admission has been reconciled. 08/26: Continue supportive care. Patient reports to me that he drinks alcohol and has withdrawal symptoms when not drinking. We will start him on CIWA protocol in addition to banana bag with vitamins. Continue managementindicated by surgery. Patient has mild elevation in total bilirubin is also a concern for possible underlying UTI. Blood pressure mildly elevated will also address this. 15 minutes counseling provided to the patient on lifestyle modification and preventive care including tobacco use and alcohol use. He verbalized understanding 08/27: Continue supportive care. Follow imaging studies. I discussed with the sister and the patient's mother in detail. Hypokalemia. 08/28: Despite reported bowel movement x-ray of the abdomen shows slightly worse bowel obstruction. Will await further input from surgeon. At this time continue NG tube to low intermittent suction. (1) Small bowel obstruction due to adhesions Current Visit: Yes Status: Acute Plan to address problem: CT scan abdomen and pelvis, serial abdominal exam, bowel rest, IV fluid res uscitation therapy, surgical team consulted in ED, NG tube placement as per surgical team. (2) Nicotine dependence Current Visit: Yes Status: Acute Qualifiers: Nicotine product type: cigarettes Substance use status: in withdrawal Qualified Code(s): F17.213 - Nicotine dependence, cigarettes, with withdrawal Plan to address problem: Smoking cessation counseling, supportive care, behavior change counseling, +15 minutes. (3) Hyponatremia Current Visit: Yes Status: Acute Plan to address problem: IV fluid resuscitation therapy, BMP, repeat BMP in a.m. (4) CAD (coronary artery disease) Current Visit: Yes Status: Acute Plan to address problem: Risk factor reduction, supportive care. (5) EtOH use disorder CIWA protocol as indicated above (6) DVT prophylaxis Current Visit: Yes Status: Acute Plan to address problem: SCD to bilateral lower extremities while in bed, patient is ambulatory History Interval history: Patient seen and examined, still with abdominal pain Although improving some. Reports that he had small bowel movement this morning Hospitalist Physical - Physical exam Narrative exam: General appearance: Present: mild distress, NGT inplace - EENT Eyes: Present: PERRL ENT: hearing intact, clear oral mucosa - Neck Neck: Present: supple, normal ROM - Respiratory Respiratory effort: normal Respiratory: bilateral: CTA - Cardiovascular Heart Sounds: Present: S1 & S2. Absent: rub, click - Extremities Extremities: pulses symmetrical, No edema Peripheral Pulses: within normal limits - Abdominal General gastrointestinal: Present: soft, non-tender, distended, normal bowel sounds, hypoactive bowel sounds,. Soft easily reducible periumbilical hernia. Male genitourinary: Present: normal - Integumentary Integumentary: Present: clear, warm, dry - Musculoskeletal Musculoskeletal: gait normal, strength equal bilaterally - Psychiatric Psychiatric: appropriate mood/affect, intact judgment & insight - Neurologic Neurologic: CNII-XII intact, moves all extremities - Constitutional Vitals: Temp Pulse Resp BP Pulse Ox 98.8 F 71 18 151/101 95 08/28/20 07:42 08/28/20 07:42 08/28/20 07:42 08/28/20 07:42 08/28/20 08:04 General appearance: Present: mild distress Results - Labs CBC & Chem 7: 08/27/20 05:23 08/27/20 05:23 Labs: Laboratory Last Values WBC 6.6 K/mm3 (4.5-11.0) 08/27/20 05:23 RBC 4.51 M/mm3 (3.65-5.03) 08/27/20 05:23 Hgb 15.0 gm/dl (11.8-15.2) 08/27/20 05:23 Hct 43.3 % (35.5-45.6) 08/27/20 05:23 MCV 96 fl (84-94) H 08/27/20 05:23 MCH 33 pg (28-32) H 08/27/20 05:23 MCHC 35 % (32-34) H 08/27/20 05:23 RDW 13.9 % (13.2-15.2) 08/27/20 05:23 Plt Count 121 K/mm3 (140-440) L 08/27/20 05:23 [place] % (Auto) [employer] 08/26/20 04:20 Add Manual Diff Complete 08/26/20 04:20 Total Counted 100 08/26/20 04:20 Seg Neuts % (Manual) 67.0 % (40.0-70.0) 08/26/20 04:20 Lymphocytes % (Manual) 21.0 % (13.4-35.0) 08/26/20 04:20 Monocytes % (Manual) 12.0 % (0.0-7.3) H 08/26/20 04:20 Eosinophils % (Manual) 1.0 % (0.0-4.3) 08/25/20 09:15 Basophils % (Manual) 1.0 % (0.0-1.8) 08/25/20 09:15 Nucleated RBC % Not Reportable 08/26/20 04:20 Seg Neutrophils # Man 3.1 K/mm3 (1.8-7.7) 08/26/20 04:20 Band Neutrophils # 0.0 K/mm3 08/26/20 04:20 Lymphocytes # (Manual) 1.0 K/mm3 (1.2-5.4) L 08/26/20 04:20 Abs React Lymphs (Man) 0.0 K/mm3 08/26/20 04:20 Monocytes # (Manual) 0.6 K/mm3 (0.0-0.8) 08/26/20 04:20 Eosinophils # (Manual) 0.0 K/mm3 (0.0-0.4) 08/26/20 04:20 Basophils # (Manual) 0.0 K/mm3 (0.0-0.1) 08/26/20 04:20 Metamyelocytes # 0.0 K/mm3 08/26/20 04:20 Myelocytes # 0.0 K/mm3 08/26/20 04:20 Promyelocytes # 0.0 K/mm3 08/26/20 04:20 Blast Cells # 0.0 K/mm3 08/26/20 04:20 WBC Morphology Not Reportable 08/26/20 04:20 Hypersegmented Neuts Not Reportable 08/26/20 04:20 Hyposegmented Neuts Not Reportable 08/26/20 04:20 Hypogranular Neuts Not Reportable 08/26/20 04:20 Smudge Cells Not Reportable 08/26/20 04:20 Toxic Granulation Not Reportable 08/26/20 04:20 Toxic Vacuolation Not Reportable 08/26/20 04:20 Dohle Bodies Not Reportable 08/26/20 04:20 Pelger-Huet Anomaly Not Reportable 08/26/20 04:20 Layla Rods Not Reportable 08/26/20 04:20 Platelet Estimate Consistent w auto 08/26/20 04:20 Clumped Platelets Not Reportable 08/26/20 04:20 Plt Clumps, EDTA Not Reportable 08/26/20 04:20 Large Platelets Few 08/26/20 04:20 Giant Platelets Not Reportable 08/26/20 04:20 Platelet Satelliting Not Reportable 08/26/20 04:20 Plt Morphology Comment Not Reportable 08/26/20 04:20 RBC Morphology Normal 08/26/20 04:20 Dimorphic RBCs Not Reportable 08/26/20 04:20 Polychromasia Not Reportable 08/26/20 04:20 Hypochromasia Not Reportable 08/26/20 04:20 Poikilocytosis Not Reportable 08/26/20 04:20 Anisocytosis Not Reportable 08/26/20 04:20 Microcytosis Not Reportable 08/26/20 04:20 Macrocytosis Not Reportable 08/26/20 04:20 Spherocytes Not Reportable 08/26/20 04:20 Pappenheimer Bodies Not Reportable 08/26/20 04:20 Sickle Cells Not Reportable 08/26/20 04:20 Target Cells Not Reportable 08/26/20 04:20 Tear Drop Cells Not Reportable 08/26/20 04:20 Ovalocytes Not Reportable 08/26/20 04:20 Helmet Cells Not Reportable 08/26/20 04:20 [place] Bodies Not Reportable 08/26/20 04:20 [place] Rings Not Reportable 08/26/20 04:20 [place] Cells Not Reportable 08/26/20 04:20 Bite Cells Not Reportable 08/26/20 04:20 Crenated Cell Not Reportable 08/26/20 04:20 Elliptocytes Not Reportable 08/26/20 04:20 Acanthocytes (Spur) Not Reportable 08/26/20 04:20 Rouleaux Not Reportable 08/26/20 04:20 Hemoglobin C Crystals Not Reportable 08/26/20 04:20 Schistocytes Not Reportable 08/26/20 04:20 Malaria parasites Not Reportable 08/26/20 04:20 Adam Bodies Not Reportable 08/26/20 04:20 Hem Pathologist Commnt No 08/26/20 04:20 PT 13.4 Sec. (12.2-14.9) 08/28/20 08:00 INR 0.96 (0.87-1.13) 08/28/20 08:00 Sodium 143 mmol/L (137-145) D 08/27/20 05:23 Potassium 3.3 mmol/L (3.6-5.0) L 08/27/20 05:23 Chloride 97.9 mmol/L (98-107) L 08/27/20 05:23 Carbon Dioxide 32 mmol/L (22-30) H 08/27/20 05:23 Anion Gap 16 mmol/L 08/27/20 05:23 BUN 15 mg/dL (9-20) 08/27/20 05:23 Creatinine 0.8 mg/dL (0.8-1.3) 08/27/20 05:23 Estimated GFR > 60 ml/min 08/27/20 05:23 BUN/Creatinine Ratio 19 % 08/27/20 05:23 Glucose 108 mg/dL (75-100) H 08/27/20 05:23 POC Glucose 124 mg/dL (70-105) H 08/25/20 22:50 Calcium 10.0 mg/dL (8.4-10.2) 08/27/20 05:23 Total Bilirubin 1.30 mg/dL (0.1-1.2) H 08/26/20 04:20 AST 18 units/L (5-40) 08/26/20 04:20 ALT 19 units/L (7-56) 08/26/20 04:20 Alkaline Phosphatase 60 units/L (35-129) 08/26/20 04:20 Total Protein 7.1 g/dL (6.3-8.2) 08/26/20 04:20 Albumin 4.2 g/dL (3.9-5) 08/26/20 04:20 Albumin/Globulin Ratio 1.4 % 08/26/20 04:20 Urine Color [place] (Yellow) 08/25/20 08:34 Urine Turbidity Slightly-cloudy (Clear) 08/25/20 08:34 Urine pH 5.0 (5.0-7.0) 08/25/20 08:34 Ur Specific [place] 1.027 (1.003-1.030) 08/25/20 08:34 Urine Protein 100 mg/dl mg/dL (Negative) 08/25/20 08:34 Urine Glucose (UA) Neg mg/dL (Negative) 08/25/20 08:34 Urine Ketones Tr mg/dL (Negative) 08/25/20 08:34 Urine Blood Neg (Negative) 08/25/20 08:34 Urine Nitrite Neg (Negative) 08/25/20 08:34 Urine Bilirubin Neg (Negative) 08/25/20 08:34 Urine Urobilinogen 4.0 mg/dL (<2.0) 08/25/20 08:34 Ur Leukocyte Esterase Neg (Negative) 08/25/20 08:34 Urine WBC (Auto) 7.0 /HPF (0.0-6.0) H 08/25/20 08:34 Urine RBC (Auto) 2.0 /HPF (0.0-6.0) 08/25/20 08:34 U Epithel Cells (Auto) 1.0 /HPF (0-13.0) 08/25/20 08:34 Urine Bacteria (Auto) 1+ /HPF (Negative) 08/25/20 08:34 Urine Mucus 3+ /HPF 08/25/20 08:34 Yun/IV: Voiding Method Urinal Active Medications - Current Medications Current Medications: Generic Name Dose Route Start Last Admin Trade Name Freq PRN Reason Stop Dose Admin Acetaminophen 650 mg 08/25/20 17:12 Acetaminophen 325 Mg Tab PO Q4H PRN Pain MILD(1-3)/Fever >100.5/MENJIVAR Albuterol 2.5 mg 08/25/20 17:12 Albuterol 2.5 Mg/3 Ml Nebu IH Q4HRT PRN Shortness Of Breath Benzocaine/Menthol 1 each 08/26/20 11:30 08/28/20 06:11 Benzocaine/Menthol Lozenge MM 1 each Q2H PRN Administration Sore Throat Enalaprilat 1.25 mg 08/26/20 12:00 08/28/20 06:02 Enalaprilat 2.5 Mg/2 Ml Inj IV 1.25 mg Q6HR BRIAN Administration Hydralazine HCl 10 mg 08/26/20 10:00 Hydralazine 20 Mg/1 Ml Inj IV Q4HR PRN Hypertension Potassium Chloride/Dextrose/Sod Cl 20 meq in 1,000 mls @ 125 mls/hr 08/25/20 18:00 08/28/20 06:13 D5w/Ns W/Kcl 20meq IV 125 mls/hr DIRECT BRIAN Administration Thiamine HCl 100 mg/ Sodium 51 mls @ 100 mls/hr 08/26/20 13:00 08/27/20 12:30 Chloride IV 100 mls/hr QDAY BRIAN Administration Lorazepam 1 mg 08/25/20 17:14 Lorazepam 2 Mg/Ml Vial IV Q8H PRN Agitation Ondansetron HCl 4 mg 08/25/20 17:12 08/27/20 05:37 Ondansetron 4 Mg/2 Ml Inj IV 4 mg Q8H PRN Administration Nausea And Vomiting Pantoprazole Sodium 40 mg 08/27/20 18:00 08/27/20 18:12 Pantoprazole 40 Mg Inj IV 40 mg QDAY BRIAN Administration Sodium Chloride 10 ml 08/25/20 22:00 08/28/20 00:48 Sodium Chloride 0.9% 10 Ml Flush Syringe IV 10 ml BID BRIAN Administration Sodium Chloride 10 ml 08/25/20 17:12 Sodium Chloride 0.9% 10 Ml Flush Syringe IV PRN PRN LINE FLUSH
[2020-08-28] MEDS: PANTOPRAZOLE 40 MG INJ IV SCH (09:31)
[2020-08-28] MEDS: THIAMINE 100 MG in SODIUM CHLORIDE 0.9% 50 ML IV SCH (10:22)
[2020-08-28] MEDS: POTASSIUM CHLORIDE 10 MEQ 10 MEQ/100 ML BAG IV SCH ×4 (11:58→21:19)
--- NOTE | 2020-08-28 14:16 | Progress Note ---
Assessment and Plan 49 year old male with mechanical SBO likely due to adhesive disease from previous surgery. Afebrile and stable. Pt likely will be scheduled for dx lap tomorrow. Continue NGT decompression and NPO except ice chips. Asked the nurse to give less ice chips given his high NGT output. Subjective Date of service: 08/28/20 Narrative: No acute events overnight. abdominal x-ray today shows consistent dilated loops c/w SBO. >2000 ml recorded out of NGT. Pt denies pain or flatus. Only complaint is throat pain. Objective Vital Signs - 12hr 08/28/20 08/28/20 08/28/20 04:38 06:02 07:42 Temperature 98.6 F 98.8 F Pulse Rate 72 72 71 Respiratory 18 18 Rate Blood Pressure 156/96 156/96 151/101 O2 Sat by Pulse 98 98 Oximetry 08/28/20 08/28/20 08/28/20 08:04 11:20 12:02 Temperature 98.5 F Pulse Rate 68 68 Respiratory 18 Rate Blood Pressure 165/101 165/101 O2 Sat by Pulse 95 99 Oximetry - General physical appearance well developed, well nourished, no distress, no pain - Respiratory normal expansion, normal respiratory effort - Abdomen soft, not tender, not distended, not rebound, not guarding - Labs 08/27/20 05:23 08/27/20 05:23 - Imaging Abdominal x-ray: report reviewed, image reviewed
[2020-08-28] MEDS: LORazepam 2 MG/ML VIAL IV PRN (23:44)
[2020-08-29] MEDS: ENALAPRILAT 2.5 MG/2 ML INJ IV SCH ×4 (01:13→18:22)
[2020-08-29] MEDS ORDERED: MORPHINE 2 MG/1 ML INJ IV ONE (01:58)
[2020-08-29] MEDS: LORazepam 2 MG/ML VIAL IV PRN ×8 (02:10→23:30)
[2020-08-29 02:27] LABS: Hematocrit 42.7 % (35.5-45.6); Hemoglobin 14.8 gm/dl (11.8-15.2); Mean Corpuscular HGB Conc 35 % (32-34); Mean Corpuscular Volume 96 fl (84-94); Platelet Count 145 K/mm3 (140-440); Red Blood Count 4.43 M/mm3 (3.65-5.03); Red Cell Distribution Width 13.7 % (13.2-15.2)
[2020-08-29 02:44] LABS: Blood Urea Nitrogen 17 mg/dL (9-20); Calcium 9.3 mg/dL (8.4-10.2); Hemolysis Index 9
[2020-08-29] MEDS ORDERED: LORazepam 2 MG/ML VIAL IV PRN (02:54)
[2020-08-29 03:19] LABS: BUN/Creatinine Ratio 24
[2020-08-29] MEDS ORDERED: WATER FOR INJ Sterile (PF) 10 ML ONE (03:49)
[2020-08-29] MEDS ORDERED: ZIPRASIDONE MESYLATE 20 MG VIAL IM ONE (03:49)
[2020-08-29] MEDS ORDERED: FOLIC ACID IV SCH (10:00)
[2020-08-29] MEDS ORDERED: MULTIPLE VITAMIN IV SCH (10:00)
[2020-08-29] MEDS ORDERED: THIAMINE IV SCH (10:00)
[2020-08-29] MEDS ORDERED: [UNRECOGNIZED DRUG - OTHER] IV SCH (10:00)
[2020-08-29] MEDS: PANTOPRAZOLE 40 MG INJ IV SCH (10:05)
--- NOTE | 2020-08-29 10:05 | Progress Note ---
Assessment and Plan 49-year-old male with small bowel obstruction likely secondary to adhesive disease from prior abdominal surgery Pt with DTs overnight, now on CIWA protocol. Afebrile. VSS KUB - persistently dilated small bowel loops consistent with SBO Plan: 1. NPO 2. IVF 3. prn pain and nausea control 4. OOB/ambulate 5. NGT to LIWS - output inaccurate as patient has been getting a full cup of ice chips q3h 6. DVT ppx 7. CIWA protocol 8. Patient has shown mild clinical improvement but radiographs show persistent SBO despite NGT decompression, fluid, bowel rest. Recommend proceeding to OR for exlap for SBO. I spoke with patient's sister and mother (DAHLIA) to update them on patient's condition and to obtain consent for surgery as he is unable to give consent due to AMS. Patient's mother Janette Abad [phone] stated that patient is an alcoholic and smokes marijuana every day. She gives consent to exploratory laparotomy. Will proceed with surgery today. Thank you for this consultation. Please call with any questions or concerns. Evaluation and treatment of this patient was during the time of the national and state emergency arising from COVID19 coronavirus pandemic. Treatment and procedures performed meet the current and available best practice and guidelines for patient during the COVID pandemic. Subjective Date of service: 08/29/20 Narrative: Pt seen and examined. Sedated. Unable to answer questions. Per RN patient had a very small BM during day shift yesterday. Overnight, patient became agitated and was felt to be in DTs. He was started on CIWA protocol and received multiple dosed of ativan. Afebrile. Objective Vital Signs - 12hr 08/28/20 08/28/20 08/29/20 23:50 23:58 05:00 Temperature 98.9 F 98.1 F Pulse Rate 79 123 H Respiratory 20 18 Rate Blood Pressure 173/110 173/110 Blood Pressure 145/86 [Left] O2 Sat by Pulse 97 95 Oximetry 08/29/20 08/29/20 07:09 08:22 Temperature Pulse Rate Respiratory Rate Blood Pressure 145/88 Blood Pressure [Left] O2 Sat by Pulse 100 Oximetry - General physical appearance Narrative Exam: Gen: Open eyes to name. Does not answer questions. Sedated ENT: NGT in place with dark brown drainage CV: s1, S2+ Resp: even and unlabored Abd: soft, ND, NT Ext: no c/c/e - Labs 08/29/20 02:24 08/29/20 02:18 Diabetes panel 08/29/20 Range/Units 02:18 Sodium 141 (137-145) mmol/L Potassium 3.4 L (3.6-5.0) mmol/L Chloride 104.3 (98-107) mmol/L Carbon Dioxide 23 D (22-30) mmol/L BUN 17 (9-20) mg/dL Creatinine 0.7 L (0.8-1.3) mg/dL Glucose 115 H (75-100) mg/dL Calcium 9.3 (8.4-10.2) mg/dL Calcium panel 08/29/20 Range/Units 02:18 Calcium 9.3 (8.4-10.2) mg/dL Pituitary panel 08/29/20 Range/Units 02:18 Sodium 141 (137-145) mmol/L Potassium 3.4 L (3.6-5.0) mmol/L Chloride 104.3 (98-107) mmol/L Carbon Dioxide 23 D (22-30) mmol/L BUN 17 (9-20) mg/dL Creatinine 0.7 L (0.8-1.3) mg/dL Glucose 115 H (75-100) mg/dL Calcium 9.3 (8.4-10.2) mg/dL Adrenal panel 08/29/20 Range/Units 02:18 Sodium 141 (137-145) mmol/L Potassium 3.4 L (3.6-5.0) mmol/L Chloride 104.3 (98-107) mmol/L Carbon Dioxide 23 D (22-30) mmol/L BUN 17 (9-20) mg/dL Creatinine 0.7 L (0.8-1.3) mg/dL Glucose 115 H (75-100) mg/dL Calcium 9.3 (8.4-10.2) mg/dL
--- NOTE | 2020-08-29 11:10 | Cat Scan Report ---
CT HEAD WITHOUT CONTRAST INDICATION / CLINICAL INFORMATION: AMS. TECHNIQUE: All CT scans at this location are performed using CT dose reduction for ALARA by means of automated e xposure control. COMPARISON: None available. FINDINGS: HEMORRHAGE: None. EXTRA-AXIAL SPACES: Normal in size and morphology for the patient's age. VENTRICULAR SYSTEM: Normal in size and morphology for the patient's age. CEREBRAL PARENCHYMA: No significant abnormality. No acute territorial infarct. MIDLINE SHIFT OR HERNIATION: None. CEREBELLUM / BRAINSTEM: No significant abnormality. ORBITS: Normal as visualized. SOFT TISSUES of HEAD: No significant abnormality. CALVARIUM: No significant abnormality. PARANASAL SINUSES / MASTOID AIR CELLS: Polypoid mucosal thickening in the bilateral ethmoid air cells and maxillary sinuses. ADDITIONAL FINDINGS: None. IMPRESSION: 1. No acute intracranial abnormality. Signer Name: Trever Woody MD Signed: 08/29/2020 11:05 AM Workstation Name: [id number]
--- NOTE | 2020-08-29 12:27 | Progress Note ---
Assessment and Plan Assessment and plan: 49 YO Male with HTN, CAD S/P Stent Placement, [place], Nicotine Dependence presents to ED for evaluation. Patient reports "my stomach hurts". Patient states that he has experienced abdominal discomfort, distention, and unable to keep food down over the past 2 days with persistent symptoms over the same timeframe. Patient denies flatus as well as bowel movement during the same timeframe. Patient transported to [facility] via private vehicle for further care and evaluation of the aforementioned symptoms. The patient was seen and evaluated in the emergency department. All lab and imaging studies reviewed. Patient underwent CT scan of the abdomen pelvis and was found to have a small bowel obstruction, volume depletion, as well as hyponatremia. Patient admitted to surgical floor and treated with bowel rest and IV fluid resuscitation therapy, as well as pain control. Surgical team consulted in ED. Patient denies fever, chills, chest pain, palpitation, productive cough, skin rash, recent contact, or known exposure to COVID-19. Prior admission on 07/02/2015 reviewed. All medication listed at time of admission has been reconciled. 08/26: Continue supportive care. Patient reports to me that he drinks alcohol and has withdrawal symptoms when not drinking. We will start him on CIWA protocol in addition to banana bag with vitamins. Continue managementindicated by surgery. Patient has mild elevation in total bilirubin is also a concern for possible underlying UTI. Blood pressure mildly elevated will also address this. 15 minutes counseling provided to the patient on lifestyle modification and preventive care including tobacco use and alcohol use. He verbalized understanding 08/27: Continue supportive care. Follow imaging studies. I discussed with the sister and the patient's mother in detail. Hypokalemia. 08/28: Despite reported bowel movement x-ray of the abdomen shows slightly worse bowel obstruction. Will await further input from surgeon. At this time continue NG tube to low intermittent suction. 08/29: Patient overnight became confused possible DTs despite being on CIWA protocol and also on thiamine replacement. Continue current management we will change fluids to banana bag. I also updated the family patient's sister on new developments. Will obtain a CT of the head to rule out any acute pathology although accounted for. Acute metabolic encephalopathy Delirium tremens Small bowel obstruction due to adhesions Current Visit: Yes Status: Acute Plan to address problem: CT scan abdomen and pelvis, serial abdominal exam, bowel rest, IV fluid resuscitation therapy, surgical team consulted in ED, NG tube placement as per surgical team. Nicotine dependence Current Visit: Yes Status: Acute Qualifiers: Nicotine product type: cigarettes Substance use status: in withdrawal Qualified Code(s): F17.213 - Nicotine dependence, cigarettes, with withdrawal Plan to address problem: Smoking cessation counseling, supportive care, behavior change counseling, +15 minutes. Hyponatremia Current Visit: Yes Status: Acute Plan to address problem: IV fluid resuscitation therapy, BMP, repeat BMP in a.m. CAD (coronary artery disease) Current Visit: Yes Status: Acute Plan to address problem: Risk factor reduction, supportive care. EtOH use disorder CIWA protocol as indicated above DVT prophylaxis Current Visit: Yes Status: Acute Plan to address problem: SCD to bilateral lower extremities while in bed, patient is ambulatory History Interval history: Patient seen and examined, overnight patient became agitated and delirious requiring Geodon given Hospitalist Physical - Physical exam Narrative exam: General appearance: Present: Confused - EENT Eyes: Present: PERRL ENT: hearing intact, clear oral mucosa - Neck Neck: Present: supple, normal ROM - Respiratory Respiratory effort: normal Respiratory: bilateral: CTA - Cardiovascular Heart Sounds: Present: S1 & S2. Absent: rub, click - Extremities Extremities: pulses symmetrical, No edema Peripheral Pulses: within normal limits - Abdominal General gastrointestinal: Present: soft, non-tender, distended, normal bowel sounds, hypoactive bowel sounds,. Soft easily reducible periumbilical hernia. Male genitourinary: Present: normal - Integumentary Integumentary: Present: clear, warm, dry - Musculoskeletal Musculoskeletal: gait normal, strength equal bilaterally - Psychiatric Psychiatric: Confused - Neurologic Neurologic: Confused, on restraints for safety - Constitutional Vitals: Temp Pulse Resp BP Pulse Ox 98.1 F 123 H 18 145/88 100 08/29/20 05:00 08/29/20 05:00 08/29/20 05:00 08/29/20 07:09 08/29/20 08:22 General appearance: Present: mild distress HEART Score - HEART Score Troponin: Troponin T < 0.010 ng/mL (0.00-0.029) 08/29/20 02:19 Results - Labs CBC & Chem 7: 08/29/20 02:24 08/29/20 02:18 Labs: Laboratory Last Values WBC 8.1 K/mm3 (4.5-11.0) 08/29/20 02:24 RBC 4.43 M/mm3 (3.65-5.03) 08/29/20 02:24 Hgb 14.8 gm/dl (11.8-15.2) 08/29/20 02:24 Hct 42.7 % (35.5-45.6) 08/29/20 02:24 MCV 96 fl (84-94) H 08/29/20 02:24 MCH 33 pg (28-32) H 08/29/20 02:24 MCHC 35 % (32-34) H 08/29/20 02:24 RDW 13.7 % (13.2-15.2) 08/29/20 02:24 Plt Count 145 K/mm3 (140-440) 08/29/20 02:24 Colbert % (Auto) Inside Sales Advisor 08/26/20 04:20 Add Manual Diff Complete 08/26/20 04:20 Total Counted 100 08/26/20 04:20 Seg Neuts % (Manual) 67.0 % (40.0-70.0) 08/26/20 04:20 Lymphocytes % (Manual) 21.0 % (13.4-35.0) 08/26/20 04:20 Monocytes % (Manual) 12.0 % (0.0-7.3) H 08/26/20 04:20 Eosinophils % (Manual) 1.0 % (0.0-4.3) 08/25/20 09:15 Basophils % (Manual) 1.0 % (0.0-1.8) 08/25/20 09:15 Nucleated RBC % Not Reportable 08/26/20 04:20 Seg Neutrophils # Man 3.1 K/mm3 (1.8-7.7) 08/26/20 04:20 Band Neutrophils # 0.0 K/mm3 08/26/20 04:20 Lymphocytes # (Manual) 1.0 K/mm3 (1.2-5.4) L 08/26/20 04:20 Abs React Lymphs (Man) 0.0 K/mm3 08/26/20 04:20 Monocytes # (Manual) 0.6 K/mm3 (0.0-0.8) 08/26/20 04:20 Eosinophils # (Manual) 0.0 K/mm3 (0.0-0.4) 08/26/20 04:20 Basophils # (Manual) 0.0 K/mm3 (0.0-0.1) 08/26/20 04:20 Metamyelocytes # 0.0 K/mm3 08/26/20 04:20 Myelocytes # 0.0 K/mm3 08/26/20 04:20 Promyelocytes # 0.0 K/mm3 08/26/20 04:20 Blast Cells # 0.0 K/mm3 08/26/20 04:20 WBC Morphology Not Reportable 08/26/20 04:20 Hypersegmented Neuts Not Reportable 08/26/20 04:20 Hyposegmented Neuts Not Reportable 08/26/20 04:20 Hypogranular Neuts Not Reportable 08/26/20 04:20 Smudge Cells Not Reportable 08/26/20 04:20 Toxic Granulation Not Reportable 08/26/20 04:20 Toxic Vacuolation Not Reportable 08/26/20 04:20 Dohle Bodies Not Reportable 08/26/20 04:20 Pelger-Huet Anomaly Not Reportable 08/26/20 04:20 Layla Rods Not Reportable 08/26/20 04:20 Platelet Estimate Consistent w auto 08/26/20 04:20 Clumped Platelets Not Reportable 08/26/20 04:20 Plt Clumps, EDTA Not Reportable 08/26/20 04:20 Large Platelets Few 08/26/20 04:20 Giant Platelets Not Reportable 08/26/20 04:20 Platelet Satelliting Not Reportable 08/26/20 04:20 Plt Morphology Comment Not Reportable 08/26/20 04:20 RBC Morphology Normal 08/26/20 04:20 Dimorphic RBCs Not Reportable 08/26/20 04:20 Polychromasia Not Reportable 08/26/20 04:20 Hypochromasia Not Reportable 08/26/20 04:20 Poikilocytosis Not Reportable 08/26/20 04:20 Anisocytosis Not Reportable 08/26/20 04:20 Microcytosis Not Reportable 08/26/20 04:20 Macrocytosis Not Reportable 08/26/20 04:20 Spherocytes Not Reportable 08/26/20 04:20 Pappenheimer Bodies Not Reportable 08/26/20 04:20 Sickle Cells Not Reportable 08/26/20 04:20 Target Cells Not Reportable 08/26/20 04:20 Tear Drop Cells Not Reportable 08/26/20 04:20 Ovalocytes Not Reportable 08/26/20 04:20 Helmet Cells Not Reportable 08/26/20 04:20 [place] Bodies Not Reportable 08/26/20 04:20 [place] Rings Not Reportable 08/26/20 04:20 [place] Cells Not Reportable 08/26/20 04:20 Bite Cells Not Reportable 08/26/20 04:20 Crenated Cell Not Reportable 08/26/20 04:20 Elliptocytes Not Reportable 08/26/20 04:20 Acanthocytes (Spur) Not Reportable 08/26/20 04:20 Rouleaux Not Reportable 08/26/20 04:20 Hemoglobin C Crystals Not Reportable 08/26/20 04:20 Schistocytes Not Reportable 08/26/20 04:20 Malaria parasites Not Reportable 08/26/20 04:20 Adam Bodies Not Reportable 08/26/20 04:20 Hem Pathologist Commnt No 08/26/20 04:20 PT 13.4 Sec. (12.2-14.9) 08/28/20 08:00 INR 0.96 (0.87-1.13) 08/28/20 08:00 Sodium 141 mmol/L (137-145) 08/29/20 02:18 Potassium 3.4 mmol/L (3.6-5.0) L 08/29/20 02:18 Chloride 104.3 mmol/L (98-107) 08/29/20 02:18 Carbon Dioxide 23 mmol/L (22-30) D 08/29/20 02:18 Anion Gap 17 mmol/L 08/29/20 02:18 BUN 17 mg/dL (9-20) 08/29/20 02:18 Creatinine 0.7 mg/dL (0.8-1.3) L 08/29/20 02:18 Estimated GFR > 60 ml/min 08/29/20 02:18 BUN/Creatinine Ratio 24 % 08/29/20 02:18 Glucose 115 mg/dL (75-100) H 08/29/20 02:18 POC Glucose 124 mg/dL (70-105) H 08/25/20 22:50 Calcium 9.3 mg/dL (8.4-10.2) 08/29/20 02:18 Total Bilirubin 1.30 mg/dL (0.1-1.2) H 08/26/20 04:20 AST 18 units/L (5-40) 08/26/20 04:20 ALT 19 units/L (7-56) 08/26/20 04:20 Alkaline Phosphatase 60 units/L (35-129) 08/26/20 04:20 Troponin T < 0.010 ng/mL (0.00-0.029) 08/29/20 02:19 Total Protein 7.1 g/dL (6.3-8.2) 08/26/20 04:20 Albumin 4.2 g/dL (3.9-5) 08/26/20 04:20 Albumin/Globulin Ratio 1.4 % 08/26/20 04:20 Urine Color [place] (Yellow) 08/25/20 08:34 Urine Turbidity Slightly-cloudy (Clear) 08/25/20 08:34 Urine pH 5.0 (5.0-7.0) 08/25/20 08:34 Ur Specific [place] 1.027 (1.003-1.030) 08/25/20 08:34 Urine Protein 100 mg/dl mg/dL (Negative) 08/25/20 08:34 Urine Glucose (UA) Neg mg/dL (Negative) 08/25/20 08:34 Urine Ketones Tr mg/dL (Negative) 08/25/20 08:34 Urine Blood Neg (Negative) 08/25/20 08:34 Urine Nitrite Neg (Negative) 08/25/20 08:34 Urine Bilirubin Neg (Negative) 08/25/20 08:34 Urine Urobilinogen 4.0 mg/dL (<2.0) 08/25/20 08:34 Ur Leukocyte Esterase Neg (Negative) 08/25/20 08:34 Urine WBC (Auto) 7.0 /HPF (0.0-6.0) H 08/25/20 08:34 Urine RBC (Auto) 2.0 /HPF (0.0-6.0) 08/25/20 08:34 U Epithel Cells (Auto) 1.0 /HPF (0-13.0) 08/25/20 08:34 Urine Bacteria (Auto) 1+ /HPF (Negative) 08/25/20 08:34 Urine Mucus 3+ /HPF 08/25/20 08:34 Blood Type A POSITIVE 08/29/20 08:27 Antibody Screen Negative 08/29/20 08:27 Yun/IV: Voiding Method Urinal Active Medications - Current Medications Current Medications: Generic Name Dose Route Start Last Admin Trade Name Freq PRN Reason Stop Dose Admin Acetaminophen 650 mg 08/25/20 17:12 Acetaminophen 325 Mg Tab PO Q4H PRN Pain MILD(1-3)/Fever >100.5/MENJIVAR Albuterol 2.5 mg 08/25/20 17:12 Albuterol 2.5 Mg/3 Ml Nebu IH Q4HRT PRN Shortness Of Breath Benzocaine/Menthol 1 each 08/26/20 11:30 08/28/20 21:18 Benzocaine/Menthol Lozenge MM 1 each Q2H PRN Administration Sore Throat Enalaprilat 1.25 mg 08/26/20 12:00 08/29/20 07:09 Enalaprilat 2.5 Mg/2 Ml Inj IV Not Given Q6HR BRIAN Hydralazine HCl 10 mg 08/26/20 10:00 08/28/20 23:58 Hydralazine 20 Mg/1 Ml Inj IV 10 mg Q4HR PRN Administration Hypertension Folic Acid 1 mg/ Multivitamins 1,010 mls @ 125 mls/hr 08/29/20 10:00 /Minerals 10 ml/ Thiamine HCl IV 100 mg/ Potassium Chloride 20 .BY DURATION BRIAN meq/ Sodium Chloride Sodium Chloride 1,000 mls @ 125 mls/hr 08/29/20 10:00 Nacl 0.9% 1000 Ml IV .BY DURATION BRIAN Lorazepam 4 mg 08/29/20 02:54 08/29/20 05:21 Lorazepam 2 Mg/Ml Vial IV 4 mg Q1H PRN Administration CIWA-Ar 16-25 Lorazepam 2 mg 08/29/20 02:54 08/29/20 10:05 Lorazepam 2 Mg/Ml Vial IV 2 mg Q1H PRN Administration CIWA-Ar 8-15 Lorazepam 4 mg 08/29/20 02:54 Lorazepam 2 Mg/Ml Vial IV Q15MIN PRN CIWA-Ar >25 Ondansetron HCl 4 mg 08/25/20 17:12 08/27/20 05:37 Ondansetron 4 Mg/2 Ml Inj IV 4 mg Q8H PRN Administration Nausea And Vomiting Pantoprazole Sodium 40 mg 08/27/20 18:00 08/29/20 10:05 Pantoprazole 40 Mg Inj IV 40 mg QDAY BRIAN Administration Sodium Chloride 10 ml 08/25/20 22:00 08/29/20 10:07 Sodium Chloride 0.9% 10 Ml Flush Syringe IV 10 ml BID BRIAN Administration Sodium Chloride 10 ml 08/25/20 17:12 Sodium Chloride 0.9% 10 Ml Flush Syringe IV PRN PRN LINE FLUSH
[2020-08-29] MEDS ORDERED: LACTATED RINGERS 1,000 ML ONE (13:23)
[2020-08-29] MEDS: LACTATED RINGERS 1,000 ML IV SCH (13:30)
[2020-08-29] MEDS ORDERED: ONDANSETRON 4 MG/2 ML INJ IV PRN (13:30)
--- NOTE | 2020-08-29 13:46 | Anesthesia Consultation ---
Anesthesia Consult and Med Hx Date of service: 08/29/20 - Airway Anesthetic Teeth Evaluation: Good ROM Head & Neck: Adequate Mental/Hyoid Distance: Adequate Intubation Access Assessment: Possibly Difficult (not fully cooperative with airway exam) - Pre-Operative Health Status ASA Pre-Surgery Classification: ASA3 Proposed Anesthetic Plan: General - Pulmonary Hx Smoking: Yes Hx Respiratory Symptoms: No - Cardiovascular System Hx Hypertension: Yes Hx Coronary Artery Disease: Yes Hx Heart Attack/AMI: Yes (2013) Hx Percutaneous Transluminal Coronary Angioplasty (PTCA): Yes (2013) Hx Cardia Arrhythmia: No Hx Pacemaker: No Hx Internal Defibrillator: No - Central Nervous System CVA: No - Endocrine Hx Renal Disease: No Hx Liver Disease: No Hx Insulin Dependent Diabetes: No Hx Non-Insulin Dependent Diabetes: No Hx Thyroid Disease: No - Other Systems Hx Alcohol Use: Yes (heavy alcohol use; currently on CIWA protocol for withdrawal symptoms) Hx Obesity: No - Additional Comments Anesthesia Medical History Comments: Patient confused and unable to provide medical history. History and anesthesia consent obtained from mother. Per mother, no hx anesthetic complications. Previously on ASA for CAD w/ hx of RI, last dose possibly 08/24/20. 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 Scheduled for ex-lap for SBO. Discussed with mother possibility of post op ICU admission and/or mechenical ventilation pending intraoperative course.
--- NOTE | 2020-08-29 13:51 | Anesthesia Day of Surgery ---
Anesthesia Day of Surgery - Day of Surgery Patient Examined: Yes Patient H&P Reviewed: Yes Patient is NPO: Yes
[2020-08-29] MEDS ORDERED: ceFAZolin/Water 2 GM/20 ML 2 GM/20 ML SYRINGE IV ONE (13:57)
[2020-08-29] MEDS ORDERED: ceFAZolin/STERILE WATER 2 GM/20 ML SYRINGE IV NR (14:00)
[2020-08-29] MEDS ORDERED: SCOPOLAMINE TRANSDERMAL PATCH 72 HR TD NR (14:00)
[2020-08-29] MEDS ORDERED: metroNIDAZOLE/NS 500 MG/100 ML 500 MG/100 ML BAG IV SCH (14:00)
[2020-08-29] MEDS ORDERED: MIDAZOLAM 2 MG/2 ML INJ IV NR (14:00)
[2020-08-29] MEDS ORDERED: MIDAZOLAM 5 MG/5 ML INJ MDV IV ONE (14:01)
[2020-08-29] MEDS ORDERED: ROCURONIUM 50 MG/5 ML INJ IV ONE (14:02)
[2020-08-29] MEDS ORDERED: propofoL 200 MG/20 ML VIAL IV ONE (14:02)
[2020-08-29] MEDS ORDERED: HYDROmorphone 1 MG/1 ML INJ ONE (14:32)
--- NOTE | 2020-08-29 15:02 | Electrocardiograph Report ---
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
[2020-08-29] MEDS ORDERED: NEOSTIGMINE 10MG/10 ML INJ MDV ONE (16:00)
[2020-08-29] MEDS ORDERED: PHENYLEPHRINE/NS 1,000 MCG/10 ML SYRINGE (OR USE) IV ONE (16:00)
[2020-08-29] MEDS ORDERED: GLYCOPYRROLATE 0.4 MG/2 ML INJ ONE (16:00)
[2020-08-29] MEDS ORDERED: dexAMETHasone 20 MG/5 ML VIAL ONE (16:10)
[2020-08-29] MEDS ORDERED: KETOROLAC 30 MG/1 ML INJ ONE (16:10)
[2020-08-29] MEDS ORDERED: ONDANSETRON 4 MG/2 ML INJ ONE (16:10)
[2020-08-29] MEDS ORDERED: SODIUM CHLORIDE 0.9% IRR 1,500 ML BOTTLE IR ONE (16:29)
[2020-08-29] MEDS ORDERED: SUGAMMADEX SODIUM 200 MG/2 ML VIAL IV ONE (16:35)
[2020-08-29] MEDS: HYDROmorphone 1 MG/1 ML INJ IV PRN ×2 (17:00→21:55)
--- NOTE | 2020-08-29 17:03 | Post Operative Note ---
Pre-op diagnosis: small bowel obstruction Post-op diagnosis: same Findings: 1. Dense adhesions from the small bowel, omentum to anterior abdominal wall 2. Dense interloop small bowel adhesions in the pelvis causing a distal small bowel obstruction. Procedure: exploratory laparotomy, lysis of adhesions Anesthesia: RAMYAA Surgeon: LITTLE LARA Profile Saw Operator: GEM GONZALEZ Estimated blood loss: minimal Pathology: none Condition: stable Disposition: PACU
--- NOTE | 2020-08-29 17:42 | Post Anesthesia Evaluation ---
- Post Anesthesia Evaluation Patient Participated: Yes Airway Patent: Yes Stable Respiratory Function: Yes Nausea/Vomiting: No Temp > 96.8F: Yes Pain Manageable: Yes Adequeate Hydration: Yes Anesthesia Complications: No
--- NOTE | 2020-08-29 18:03 | XRay Report ---
ABDOMEN 1 VIEW(S) INDICATION / CLINICAL INFORMATION: sbo. COMPARISON: Previous day. FINDINGS: TUBES / LINES: NG tube unchanged. BOWEL GAS PATTERN: Distended small bowel loops remain with mild/moderate improvement. ADDITIONAL FINDINGS: No significant additional findings. IMPRESSION: Residual small bowel obstruction with interval improvement. Signer Name: Marcos Lopez MD Signed: 08/29/2020 5:59 PM Workstation Name: [id number]
[2020-08-30] MEDS: LORazepam 2 MG/ML VIAL IV PRN ×10 (01:31→20:19)
[2020-08-30] MEDS ORDERED: WATER FOR INJ Sterile (PF) 10 ML IM SCH (03:13)
[2020-08-30] MEDS ORDERED: ZIPRASIDONE MESYLATE 20 MG VIAL IM ONE (03:40)
[2020-08-30] MEDS: ENALAPRILAT 2.5 MG/2 ML INJ IV SCH ×4 (04:37→23:11)
[2020-08-30 04:57] LABS: Hematocrit 38.8 % (35.5-45.6); Hemoglobin 13.1 gm/dl (11.8-15.2); Mean Corpuscular HGB Conc 34 % (32-34); Mean Corpuscular Volume 97 fl (84-94); Platelet Count 155 K/mm3 (140-440); Red Blood Count 3.99 M/mm3 (3.65-5.03)
[2020-08-30] MEDS: LACTATED RINGERS 1,000 ML IV SCH (05:10)
[2020-08-30 05:11] LABS: BUN/Creatinine Ratio 17; Blood Urea Nitrogen 15 mg/dL (9-20); Calcium 8.8 mg/dL (8.4-10.2); Hemolysis Index 12
[2020-08-30] MEDS ORDERED: DEXTROSE 50% IN WATER (25GM) 50 ML VIAL IV PRN (07:32)
--- NOTE | 2020-08-30 08:04 | Progress Note ---
Assessment and Plan Assessment and plan: 49 YO Male with HTN, CAD S/P Stent Placement, OR, Nicotine Dependence presents to ED for evaluation. Patient reports "my stomach hurts". Patient states that he has experienced abdominal discomfort, distention, and unable to keep food down over the past 2 days with persistent symptoms over the same timeframe. Patient denies flatus as well as bowel movement during the same timeframe. Patient transported to [facility] via private vehicle for further care and evaluation of the aforementioned symptoms. The patient was seen and evaluated in the emergency department. All lab and imaging studies reviewed. Patient underwent CT scan of the abdomen pelvis and was found to have a small bowel obstruction, volume depletion, as well as hyponatremia. Patient admitted to surgical floor and treated with bowel rest and IV fluid resuscitation therapy, as well as pain control. Surgical team consulted in ED. Patient denies fever, chills, chest pain, palpitation, productive cough, skin rash, recent contact, or known exposure to COVID-19. Prior admission on 07/02/2015 reviewed. All medication listed at time of admission has been reconciled. 08/26: Continue supportive care. Patient reports to me that he drinks alcohol and has withdrawal symptoms when not drinking. We will start him on CIWA protocol in addition to banana bag with vitamins. Continue managementindicated by surgery. Patient has mild elevation in total bilirubin is also a concern for possible underlying UTI. Blood pressure mildly elevated will also address this. 15 minutes counseling provided to the patient on lifestyle modification and preventive care including tobacco use and alcohol use. He verbalized understanding 08/27: Continue supportive care. Follow imaging studies. I discussed with the sister and the patient's mother in detail. Hypokalemia. 08/28: Despite reported bowel movement x-ray of the abdomen shows slightly worse bowel obstruction. Will await further input from surgeon. At this time continue NG tube to low intermittent suction. 08/29: Patient overnight became confused possible DTs despite being on CIWA protocol and also on thiamine replacement. Continue current management we will change fluids to banana bag. I also updated the family patient's sister on new developments. Will obtain a CT of the head to rule out any acute pathology although accounted for. Acute metabolic encephalopathy Delirium tremens Small bowel obstruction due to adhesions Current Visit: Yes Status: Acute Plan to address problem: CT scan abdomen and pelvis, serial abdominal exam, bowel rest, IV fluid resuscitation therapy, surgical team consulted in ED, NG tube placement as per surgical team. Nicotine dependence Current Visit: Yes Status: Acute Qualifiers: Nicotine product type: cigarettes Substance use status: in withdrawal Qualified Code(s): F17.213 - Nicotine dependence, cigarettes, with withdrawal Plan to address problem: Smoking cessation counseling, supportive care, behavior change counseling, +15 minutes. Hyponatremia Current Visit: Yes Status: Acute Plan to address problem: IV fluid resuscitation therapy, BMP, repeat BMP in a.m. CAD (coronary artery disease) Current Visit: Yes Status: Acute Plan to address problem: Risk factor reduction, supportive care. EtOH use disorder CIWA protocol as indicated above DVT prophylaxis Current Visit: Yes Status: Acute Plan to address problem: SCD to bilateral lower extremities while in bed, patient is ambulatory 08/30/2020; patient had laparotomy and lysis of adhesion yesterday, general surgery is following. CT head was done and negative for acute intracranial pathology. Patient was agitated and trying to get out of the bed. Patient was requiring 4 mg of IV Ativan and despite that patient was trying to get out of the bed. Patient is not appropriate for floor management and he can be transferred to [facility] for close monitoring and management. Transfer order placed. Continue with CIWA protocol. History Interval history: Patient was seen and evaluated this morning Patient was confused, on four-point restraints Patient is agitated and trying to get out of the bed and remove the devices Hospitalist Physical - Physical exam Narrative exam: Not in cardiopulmonary distress. NG tube in place The patient appeared well nourished and normally developed. Vital signs as documented. Head exam is unremarkable. No scleral icterus . Neck is without jugular venous distension, thyromegaly, or carotid bruits. Lungs are clear to auscultation. Cardiac exam reveals regular rate and Rhythm. Tachycardia. Abdominal exam reveals clean laparotomy incision. Extremities are nonedematous and both femoral and pedal pulses are normal. ASSURANCE SENIOR: Patient was confused and agitated. - Constitutional Vitals: Temp Pulse Resp BP Pulse Ox 100.0 F H 80 19 105/72 98 08/30/20 07:46 08/30/20 07:46 08/30/20 07:46 08/30/20 07:46 08/30/20 07:46 General appearance: Present: mild distress HEART Score - HEART Score Troponin: Troponin T < 0.010 ng/mL (0.00-0.029) 08/29/20 02:19 Results - Labs CBC & Chem 7: 08/30/20 04:13 08/30/20 04:13 Labs: Laboratory Last Values WBC 7.2 K/mm3 (4.5-11.0) 08/30/20 04:13 RBC 3.99 M/mm3 (3.65-5.03) 08/30/20 04:13 Hgb 13.1 gm/dl (11.8-15.2) 08/30/20 04:13 Hct 38.8 % (35.5-45.6) 08/30/20 04:13 MCV 97 fl (84-94) H 08/30/20 04:13 MCH 33 pg (28-32) H 08/30/20 04:13 MCHC 34 % (32-34) 08/30/20 04:13 RDW 14.0 % (13.2-15.2) 08/30/20 04:13 Plt Count 155 K/mm3 (140-440) 08/30/20 04:13 [place] % (Auto) [place] 08/26/20 04:20 Add Manual Diff Complete 08/26/20 04:20 Total Counted 100 08/26/20 04:20 Seg Neuts % (Manual) 67.0 % (40.0-70.0) 08/26/20 04:20 Lymphocytes % (Manual) 21.0 % (13.4-35.0) 08/26/20 04:20 Monocytes % (Manual) 12.0 % (0.0-7.3) H 08/26/20 04:20 Eosinophils % (Manual) 1.0 % (0.0-4.3) 08/25/20 09:15 Basophils % (Manual) 1.0 % (0.0-1.8) 08/25/20 09:15 Nucleated RBC % Not Reportable 08/26/20 04:20 Seg Neutrophils # Man 3.1 K/mm3 (1.8-7.7) 08/26/20 04:20 Band Neutrophils # 0.0 K/mm3 08/26/20 04:20 Lymphocytes # (Manual) 1.0 K/mm3 (1.2-5.4) L 08/26/20 04:20 Abs React Lymphs (Man) 0.0 K/mm3 08/26/20 04:20 Monocytes # (Manual) 0.6 K/mm3 (0.0-0.8) 08/26/20 04:20 Eosinophils # (Manual) 0.0 K/mm3 (0.0-0.4) 08/26/20 04:20 Basophils # (Manual) 0.0 K/mm3 (0.0-0.1) 08/26/20 04:20 Metamyelocytes # 0.0 K/mm3 08/26/20 04:20 Myelocytes # 0.0 K/mm3 08/26/20 04:20 Promyelocytes # 0.0 K/mm3 08/26/20 04:20 Blast Cells # 0.0 K/mm3 08/26/20 04:20 WBC Morphology Not Reportable 08/26/20 04:20 Hypersegmented Neuts Not Reportable 08/26/20 04:20 Hyposegmented Neuts Not Reportable 08/26/20 04:20 Hypogranular Neuts Not Reportable 08/26/20 04:20 Smudge Cells Not Reportable 08/26/20 04:20 Toxic Granulation Not Reportable 08/26/20 04:20 Toxic Vacuolation Not Reportable 08/26/20 04:20 Dohle Bodies Not Reportable 08/26/20 04:20 Pelger-Huet Anomaly Not Reportable 08/26/20 04:20 Layla Rods Not Reportable 08/26/20 04:20 Platelet Estimate Consistent w auto 08/26/20 04:20 Clumped Platelets Not Reportable 08/26/20 04:20 Plt Clumps, EDTA Not Reportable 08/26/20 04:20 Large Platelets Few 08/26/20 04:20 Giant Platelets Not Reportable 08/26/20 04:20 Platelet Satelliting Not Reportable 08/26/20 04:20 Plt Morphology Comment Not Reportable 08/26/20 04:20 RBC Morphology Normal 08/26/20 04:20 Dimorphic RBCs Not Reportable 08/26/20 04:20 Polychromasia Not Reportable 08/26/20 04:20 Hypochromasia Not Reportable 08/26/20 04:20 Poikilocytosis Not Reportable 08/26/20 04:20 Anisocytosis Not Reportable 08/26/20 04:20 Microcytosis Not Reportable 08/26/20 04:20 Macrocytosis Not Reportable 08/26/20 04:20 Spherocytes Not Reportable 08/26/20 04:20 Pappenheimer Bodies Not Reportable 08/26/20 04:20 Sickle Cells Not Reportable 08/26/20 04:20 Target Cells Not Reportable 08/26/20 04:20 Tear Drop Cells Not Reportable 08/26/20 04:20 Ovalocytes Not Reportable 08/26/20 04:20 Helmet Cells Not Reportable 08/26/20 04:20 [place] Bodies Not Reportable 08/26/20 04:20 [place] Rings Not Reportable 08/26/20 04:20 [place] Cells Not Reportable 08/26/20 04:20 Bite Cells Not Reportable 08/26/20 04:20 Crenated Cell Not Reportable 08/26/20 04:20 Elliptocytes Not Reportable 08/26/20 04:20 Acanthocytes (Spur) Not Reportable 08/26/20 04:20 Rouleaux Not Reportable 08/26/20 04:20 Hemoglobin C Crystals Not Reportable 08/26/20 04:20 Schistocytes Not Reportable 08/26/20 04:20 Malaria parasites Not Reportable 08/26/20 04:20 Adam Bodies Not Reportable 08/26/20 04:20 Hem Pathologist Commnt No 08/26/20 04:20 PT 13.4 Sec. (12.2-14.9) 08/28/20 08:00 INR 0.96 (0.87-1.13) 08/28/20 08:00 Sodium 145 mmol/L (137-145) 08/30/20 04:13 Potassium 3.5 mmol/L (3.6-5.0) L 08/30/20 04:13 Chloride 107.6 mmol/L (98-107) H 08/30/20 04:13 Carbon Dioxide 28 mmol/L (22-30) 08/30/20 04:13 Anion Gap 13 mmol/L 08/30/20 04:13 BUN 15 mg/dL (9-20) 08/30/20 04:13 Creatinine 0.9 mg/dL (0.8-1.3) 08/30/20 04:13 Estimated GFR > 60 ml/min 08/30/20 04:13 BUN/Creatinine Ratio 17 % 08/30/20 04:13 Glucose 67 mg/dL (75-100) L 08/30/20 04:13 POC Glucose 124 mg/dL (70-105) H 08/25/20 22:50 Calcium 8.8 mg/dL (8.4-10.2) 08/30/20 04:13 Magnesium 1.90 mg/dL (1.7-2.3) 08/29/20 23:22 Total Bilirubin 1.30 mg/dL (0.1-1.2) H 08/26/20 04:20 AST 18 units/L (5-40) 08/26/20 04:20 ALT 19 units/L (7-56) 08/26/20 04:20 Alkaline Phosphatase 60 units/L (35-129) 08/26/20 04:20 Troponin T < 0.010 ng/mL (0.00-0.029) 08/29/20 02:19 Total Protein 7.1 g/dL (6.3-8.2) 08/26/20 04:20 Albumin 4.2 g/dL (3.9-5) 08/26/20 04:20 Albumin/Globulin Ratio 1.4 % 08/26/20 04:20 Urine Color [place] (Yellow) 08/25/20 08:34 Urine Turbidity Slightly-cloudy (Clear) 08/25/20 08:34 Urine pH 5.0 (5.0-7.0) 08/25/20 08:34 Ur Specific [place] 1.027 (1.003-1.030) 08/25/20 08:34 Urine Protein 100 mg/dl mg/dL (Negative) 08/25/20 08:34 Urine Glucose (UA) Neg mg/dL (Negative) 08/25/20 08:34 Urine Ketones Tr mg/dL (Negative) 08/25/20 08:34 Urine Blood Neg (Negative) 08/25/20 08:34 Urine Nitrite Neg (Negative) 08/25/20 08:34 Urine Bilirubin Neg (Negative) 08/25/20 08:34 Urine Urobilinogen 4.0 mg/dL (<2.0) 08/25/20 08:34 Ur Leukocyte Esterase Neg (Negative) 08/25/20 08:34 Urine WBC (Auto) 7.0 /HPF (0.0-6.0) H 08/25/20 08:34 Urine RBC (Auto) 2.0 /HPF (0.0-6.0) 08/25/20 08:34 U Epithel Cells (Auto) 1.0 /HPF (0-13.0) 08/25/20 08:34 Urine Bacteria (Auto) 1+ /HPF (Negative) 08/25/20 08:34 Urine Mucus 3+ /HPF 08/25/20 08:34 Blood Type A POSITIVE 08/29/20 08:27 Antibody Screen Negative 08/29/20 08:27 Yun/IV: Voiding Method Condom Catheter Active Medications - Current Medications Current Medications: Generic Name Dose Route Start Last Admin Trade Name Freq PRN Reason Stop Dose Admin Acetaminophen 650 mg 08/25/20 17:12 Acetaminophen 325 Mg Tab PO Q4H PRN Pain MILD(1-3)/Fever >100.5/MENJIVAR Albuterol 2.5 mg 08/25/20 17:12 Albuterol 2.5 Mg/3 Ml Nebu IH Q4HRT PRN Shortness Of Breath Benzocaine/Menthol 1 each 08/26/20 11:30 08/28/20 21:18 Benzocaine/Menthol Lozenge MM 1 each Q2H PRN Administration Sore Throat Dextrose 25 gm 08/30/20 07:32 Dextrose 50% In Water (25gm) 50 Ml Vial IV Q30MIN PRN Hypoglycemia Protocol Enalaprilat 1.25 mg 08/26/20 12:00 08/30/20 04:37 Enalaprilat 2.5 Mg/2 Ml Inj IV Not Given Q6HR BRIAN Folic Acid 1 mg 09/01/20 10:00 Folic Acid 1 Mg Tab PO DAILY BRIAN Hydralazine HCl 10 mg 08/26/20 10:00 08/28/20 23:58 Hydralazine 20 Mg/1 Ml Inj IV 10 mg Q4HR PRN Administration Hypertension Potassium Chloride/Dextrose/Sod Cl 20 meq in 1,000 mls @ 100 mls/hr 08/30/20 08:00 D5w/Ns W/Kcl 20meq IV DIRECT BRIAN Thiamine HCl 100 mg/ Folic 1,011.2 mls @ 125 mls/hr 08/30/20 10:00 Acid 1 mg/ Multivitamins/ IV 08/31/20 18:06 Minerals 10 ml/ Sodium DAILY BRIAN Chloride Lorazepam 4 mg 08/29/20 02:54 08/30/20 01:31 Lorazepam 2 Mg/Ml Vial IV 4 mg Q1H PRN Administration CIWA-Ar 16-25 Lorazepam 2 mg 08/29/20 02:54 08/30/20 05:55 Lorazepam 2 Mg/Ml Vial IV 2 mg Q1H PRN Administration CIWA-Ar 8-15 Lorazepam 4 mg 08/29/20 02:54 Lorazepam 2 Mg/Ml Vial IV Q15MIN PRN CIWA-Ar >25 Multivitamins 1 each 09/01/20 10:00 Multivitamins ,Therapeutic Tab PO DAILY BRIAN Ondansetron HCl 4 mg 08/25/20 17:12 08/27/20 05:37 Ondansetron 4 Mg/2 Ml Inj IV 4 mg Q8H PRN Administration Nausea And Vomiting Pantoprazole Sodium 40 mg 08/27/20 18:00 08/29/20 10:05 Pantoprazole 40 Mg Inj IV 40 mg QDAY BRIAN Administration Sodium Chloride 10 ml 08/25/20 22:00 08/29/20 10:07 Sodium Chloride 0.9% 10 Ml Flush Syringe IV 10 ml BID BRIAN Administration Sodium Chloride 10 ml 08/25/20 17:12 Sodium Chloride 0.9% 10 Ml Flush Syringe IV PRN PRN LINE FLUSH Sterile Water 10 ml 08/30/20 03:13 08/30/20 04:39 Water For Inj Sterile (Pf) 10 Ml IM 1.2 ml DIRECT BRIAN Administration Thiamine HCl 100 mg 09/01/20 10:00 Thiamine 100 Mg Tab PO QDAY BRIAN
[2020-08-30] MEDS ORDERED: THIAMINE 100 MG, FOLIC ACID 1 MG, MULTIPLE VITAMIN INJ, ADULT 10 ML in SODIUM CHLORIDE ... IV SCH (10:00)
[2020-08-30] MEDS: PANTOPRAZOLE 40 MG INJ IV SCH (10:44)
--- NOTE | 2020-08-30 12:21 | Progress Note ---
Assessment and Plan 49 yo M s/p exploratory laparotomy, lysis of adhesions for SBO 1. SBO 2. DTs 2/2 etoh withdrawal Plan: 1. NPO except minimal ice chips 2. IVF 3. prn pain and nausea control 4. OOB/ambulate 5. NGT to LIWS 6. DVT ppx 7. CIWA protocol 8. Await bowel function 9. DVT ppx Thank you for this consultation. Please call with any questions or concerns. Evaluation and treatment of this patient was during the time of the national and state emergency arising from COVID19 coronavirus pandemic. Treatment and procedures performed meet the current and available best practice and guidelines for patient during the COVID pandemic. Subjective Date of service: 08/30/20 Narrative: Pt seen and examined. Agitated with delerium per RN notes. No f/c. Patient s tates he has no pain and was passing flatus yesterday. Objective Vital Signs - 12hr 08/30/20 08/30/20 08/30/20 06:09 07:46 09:35 Temperature 100.2 F H 100.0 F H Pulse Rate 102 H 80 Respiratory 18 19 Rate Blood Pressure 112/70 Blood Pressure 105/72 [Left] O2 Sat by Pulse 92 98 98 Oximetry - General physical appearance Narrative Exam: Gen: Arousable and answers some questions appropriately. Oriented to person and place. Agitated ENT: NGT with dark bilious output CV: s1, S2+ Resp: even and unlabored Abd: soft, NT, ND. Dressing c/d/i Ext: no c/c/e - Labs 08/30/20 04:13 08/30/20 04:13 Diabetes panel 08/30/20 Range/Units 04:13 Sodium 145 (137-145) mmol/L Potassium 3.5 L (3.6-5.0) mmol/L Chloride 107.6 H (98-107) mmol/L Carbon Dioxide 28 (22-30) mmol/L BUN 15 (9-20) mg/dL Creatinine 0.9 (0.8-1.3) mg/dL Glucose 67 L (75-100) mg/dL Calcium 8.8 (8.4-10.2) mg/dL Calcium panel 08/30/20 Range/Units 04:13 Calcium 8.8 (8.4-10.2) mg/dL Pituitary panel 08/30/20 Range/Units 04:13 Sodium 145 (137-145) mmol/L Potassium 3.5 L (3.6-5.0) mmol/L Chloride 107.6 H (98-107) mmol/L Carbon Dioxide 28 (22-30) mmol/L BUN 15 (9-20) mg/dL Creatinine 0.9 (0.8-1.3) mg/dL Glucose 67 L (75-100) mg/dL Calcium 8.8 (8.4-10.2) mg/dL Adrenal panel 08/30/20 Range/Units 04:13 Sodium 145 (137-145) mmol/L Potassium 3.5 L (3.6-5.0) mmol/L Chloride 107.6 H (98-107) mmol/L Carbon Dioxide 28 (22-30) mmol/L BUN 15 (9-20) mg/dL Creatinine 0.9 (0.8-1.3) mg/dL Glucose 67 L (75-100) mg/dL Calcium 8.8 (8.4-10.2) mg/dL
--- NOTE | 2020-08-30 13:48 | Post Anesthesia Evaluation ---
- Post Anesthesia Evaluation Patient Participated: No (asleep) Airway Patent: Yes Stable Respiratory Function: Yes (rapid spontaneous breathing) Nausea/Vomiting: No (NG tube with some dark content) Temp > 96.8F: Yes Pain Manageable: Yes Adequeate Hydration: Yes Anesthesia Complications: No Block Receding Appropriately: Not Applicable Patient on Ventilator: No Other Comments: Patient exhibits signs of alcohol withdrawal delirium despite contineous CIWA therapy. Was agitated and was given Ativan IV. Patient has been transferred to ICU for observation
[2020-08-31] MEDS: ENALAPRILAT 2.5 MG/2 ML INJ IV SCH ×4 (00:29→18:46)
[2020-08-31] MEDS: D5NS W/KCL 20 MEQ 20 MEQ/1,000 ML BAG IV SCH ×3 (00:30→12:08)
[2020-08-31] MEDS: ACETAMINOPHEN 650 MG RECT SUPP PR PRN ×2 (06:16→13:07)
--- NOTE | 2020-08-31 07:18 | Progress Note ---
Assessment and Plan Assessment and plan: 49 YO Male with HTN, CAD S/P Stent Placement, ND, Nicotine Dependence presents to ED for evaluation. Patient reports "my stomach hurts". Patient states that he has experienced abdominal discomfort, distention, and unable to keep food down over the past 2 days with persistent symptoms over the same timeframe. Patient denies flatus as well as bowel movement during the same timeframe. Patient transported to [facility] via private vehicle for further care and evaluation of the aforementioned symptoms. The patient was seen and evaluated in the emergency department. All lab and imaging studies reviewed. Patient underwent CT scan of the abdomen pelvis and was found to have a small bowel obstruction, volume depletion, as well as hyponatremia. Patient admitted to surgical floor and treated with bowel rest and IV fluid resuscitation therapy, as well as pain control. Surgical team consulted in ED. Patient denies fever, chills, chest pain, palpitation, productive cough, skin rash, recent contact, or known exposure to COVID-19. Prior admission on 07/02/2015 reviewed. All medication listed at time of admission has been reconciled. 08/26: Continue supportive care. Patient reports to me that he drinks alcohol and has withdrawal symptoms when not drinking. We will start him on CIWA protocol in addition to banana bag with vitamins. Continue managementindicated by surgery. Patient has mild elevation in total bilirubin is also a concern for possible underlying UTI. Blood pressure mildly elevated will also address this. 15 minutes counseling provided to the patient on lifestyle modification and preventive care including tobacco use and alcohol use. He verbalized understanding 08/27: Continue supportive care. Follow imaging studies. I discussed with the sister and the patient's mother in detail. Hypokalemia. 08/28: Despite reported bowel movement x-ray of the abdomen shows slightly worse bowel obstruction. Will await further input from surgeon. At this time continue NG tube to low intermittent suction. 08/29: Patient overnight became confused possible DTs despite being on CIWA protocol and also on thiamine replacement. Continue current management we will change fluids to banana bag. I also updated the family patient's sister on new developments. Will obtain a CT of the head to rule out any acute pathology although accounted for. Acute metabolic encephalopathy Delirium tremens Small bowel obstruction due to adhesions Current Visit: Yes Status: Acute Plan to address problem: CT scan abdomen and pelvis, serial abdominal exam, bowel rest, IV fluid resuscitation therapy, surgical team consulted in ED, NG tube placement as per surgical team. Nicotine dependence Current Visit: Yes Status: Acute Qualifiers: Nicotine product type: cigarettes Substance use status: in withdrawal Qualified Code(s): F17.213 - Nicotine dependence, cigarettes, with withdrawal Plan to address problem: Smoking cessation counseling, supportive care, behavior change counseling, +15 minutes. Hyponatremia Current Visit: Yes Status: Acute Plan to address problem: IV fluid resuscitation therapy, BMP, repeat BMP in a.m. CAD (coronary artery disease) Current Visit: Yes Status: Acute Plan to address problem: Risk factor reduction, supportive care. EtOH use disorder CIWA protocol as indicated above DVT prophylaxis Current Visit: Yes Status: Acute Plan to address problem: SCD to bilateral lower extremities while in bed, patient is ambulatory 08/30/2020; patient had laparotomy and lysis of adhesion yesterday, general surgery is following. CT head was done and negative for acute intracranial pathology. Patient was agitated and trying to get out of the bed. Patient was requiring 4 mg of IV Ativan and despite that patient was trying to get out of the bed. Patient is not appropriate for floor management and he can be transferred to [facility] for close monitoring and management. Transfer order placed. Continue with CIWA protocol. 08/31/2020; patient had episodes of fever overnight and I ordered UA, chest x- ray, blood culture and empiric IV Zosyn. Patient is on restraints. Patient is in alcohol withdrawal and will continue with CIWA protocol. Patient had bowel movement this morning. Patient is still on NG tube, nutrition is per surgery recommendation. History Interval history: Patient was seen and evaluated this morning Patient was confused but calm and cooperative Patient had episodes of fever overnight Patient had bowel movement Hospitalist Physical - Physical exam Narrative exam: Not in cardiopulmonary distress. NG tube in place The patient appeared well nourished and normally developed. Vital signs as documented. Head exam is unremarkable. No scleral icterus . Neck is without jugular venous distension, thyromegaly, or carotid bruits. Lungs are clear to auscultation. Cardiac exam reveals regular rate and Rhythm. Tachycardia. Abdominal exam reveals clean laparotomy incision. Extremities are nonedematous and both femoral and pedal pulses are normal. 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 - Constitutional Vitals: Temp Pulse Resp BP Pulse Ox 102.9 F H 133 H 22 127/82 88 08/31/20 05:33 08/31/20 05:33 08/31/20 06:16 08/31/20 05:33 08/31/20 05:33 General appearance: Present: mild distress HEART Score - HEART Score Troponin: Troponin T < 0.010 ng/mL (0.00-0.029) 08/29/20 02:19 Results - Labs CBC & Chem 7: 08/30/20 04:13 08/31/20 07:58 Labs: Laboratory Last Values WBC 7.2 K/mm3 (4.5-11.0) 08/30/20 04:13 RBC 3.99 M/mm3 (3.65-5.03) 08/30/20 04:13 Hgb 13.1 gm/dl (11.8-15.2) 08/30/20 04:13 Hct 38.8 % (35.5-45.6) 08/30/20 04:13 MCV 97 fl (84-94) H 08/30/20 04:13 MCH 33 pg (28-32) H 08/30/20 04:13 MCHC 34 % (32-34) 08/30/20 04:13 RDW 14.0 % (13.2-15.2) 08/30/20 04:13 Plt Count 155 K/mm3 (140-440) 08/30/20 04:13 Falls % (Auto) Mortgage Originator 08/26/20 04:20 Add Manual Diff Complete 08/26/20 04:20 Total Counted 100 08/26/20 04:20 Seg Neuts % (Manual) 67.0 % (40.0-70.0) 08/26/20 04:20 Lymphocytes % (Manual) 21.0 % (13.4-35.0) 08/26/20 04:20 Monocytes % (Manual) 12.0 % (0.0-7.3) H 08/26/20 04:20 Eosinophils % (Manual) 1.0 % (0.0-4.3) 08/25/20 09:15 Basophils % (Manual) 1.0 % (0.0-1.8) 08/25/20 09:15 Nucleated RBC % Not Reportable 08/26/20 04:20 Seg Neutrophils # Man 3.1 K/mm3 (1.8-7.7) 08/26/20 04:20 Band Neutrophils # 0.0 K/mm3 08/26/20 04:20 Lymphocytes # (Manual) 1.0 K/mm3 (1.2-5.4) L 08/26/20 04:20 Abs React Lymphs (Man) 0.0 K/mm3 08/26/20 04:20 Monocytes # (Manual) 0.6 K/mm3 (0.0-0.8) 08/26/20 04:20 Eosinophils # (Manual) 0.0 K/mm3 (0.0-0.4) 08/26/20 04:20 Basophils # (Manual) 0.0 K/mm3 (0.0-0.1) 08/26/20 04:20 Metamyelocytes # 0.0 K/mm3 08/26/20 04:20 Myelocytes # 0.0 K/mm3 08/26/20 04:20 Promyelocytes # 0.0 K/mm3 08/26/20 04:20 Blast Cells # 0.0 K/mm3 08/26/20 04:20 WBC Morphology Not Reportable 08/26/20 04:20 Hypersegmented Neuts Not Reportable 08/26/20 04:20 Hyposegmented Neuts Not Reportable 08/26/20 04:20 Hypogranular Neuts Not Reportable 08/26/20 04:20 Smudge Cells Not Reportable 08/26/20 04:20 Toxic Granulation Not Reportable 08/26/20 04:20 Toxic Vacuolation Not Reportable 08/26/20 04:20 Dohle Bodies Not Reportable 08/26/20 04:20 Pelger-Huet Anomaly Not Reportable 08/26/20 04:20 Layla Rods Not Reportable 08/26/20 04:20 Platelet Estimate Consistent w auto 08/26/20 04:20 Clumped Platelets Not Reportable 08/26/20 04:20 Plt Clumps, EDTA Not Reportable 08/26/20 04:20 Large Platelets Few 08/26/20 04:20 Giant Platelets Not Reportable 08/26/20 04:20 Platelet Satelliting Not Reportable 08/26/20 04:20 Plt Morphology Comment Not Reportable 08/26/20 04:20 RBC Morphology Normal 08/26/20 04:20 Dimorphic RBCs Not Reportable 08/26/20 04:20 Polychromasia Not Reportable 08/26/20 04:20 Hypochromasia Not Reportable 08/26/20 04:20 Poikilocytosis Not Reportable 08/26/20 04:20 Anisocytosis Not Reportable 08/26/20 04:20 Microcytosis Not Reportable 08/26/20 04:20 Macrocytosis Not Reportable 08/26/20 04:20 Spherocytes Not Reportable 08/26/20 04:20 Pappenheimer Bodies Not Reportable 08/26/20 04:20 Sickle Cells Not Reportable 08/26/20 04:20 Target Cells Not Reportable 08/26/20 04:20 Tear Drop Cells Not Reportable 08/26/20 04:20 Ovalocytes Not Reportable 08/26/20 04:20 Helmet Cells Not Reportable 08/26/20 04:20 [place] Bodies Not Reportable 08/26/20 04:20 [place] Rings Not Reportable 08/26/20 04:20 [place] Cells Not Reportable 08/26/20 04:20 Bite Cells Not Reportable 08/26/20 04:20 Crenated Cell Not Reportable 08/26/20 04:20 Elliptocytes Not Reportable 08/26/20 04:20 Acanthocytes (Spur) Not Reportable 08/26/20 04:20 Rouleaux Not Reportable 08/26/20 04:20 Hemoglobin C Crystals Not Reportable 08/26/20 04:20 Schistocytes Not Reportable 08/26/20 04:20 Malaria parasites Not Reportable 08/26/20 04:20 Adam Bodies Not Reportable 08/26/20 04:20 Hem Pathologist Commnt No 08/26/20 04:20 PT 13.4 Sec. (12.2-14.9) 08/28/20 08:00 INR 0.96 (0.87-1.13) 08/28/20 08:00 Sodium 145 mmol/L (137-145) 08/30/20 04:13 Potassium 3.5 mmol/L (3.6-5.0) L 08/30/20 04:13 Chloride 107.6 mmol/L (98-107) H 08/30/20 04:13 Carbon Dioxide 28 mmol/L (22-30) 08/30/20 04:13 Anion Gap 13 mmol/L 08/30/20 04:13 BUN 15 mg/dL (9-20) 08/30/20 04:13 Creatinine 0.9 mg/dL (0.8-1.3) 08/30/20 04:13 Estimated GFR > 60 ml/min 08/30/20 04:13 BUN/Creatinine Ratio 17 % 08/30/20 04:13 Glucose 67 mg/dL (75-100) L 08/30/20 04:13 POC Glucose 124 mg/dL (70-105) H 08/25/20 22:50 Calcium 8.8 mg/dL (8.4-10.2) 08/30/20 04:13 Magnesium 1.90 mg/dL (1.7-2.3) 08/29/20 23:22 Total Bilirubin 1.30 mg/dL (0.1-1.2) H 08/26/20 04:20 AST 18 units/L (5-40) 08/26/20 04:20 ALT 19 units/L (7-56) 08/26/20 04:20 Alkaline Phosphatase 60 units/L (35-129) 08/26/20 04:20 Troponin T < 0.010 ng/mL (0.00-0.029) 08/29/20 02:19 Total Protein 7.1 g/dL (6.3-8.2) 08/26/20 04:20 Albumin 4.2 g/dL (3.9-5) 08/26/20 04:20 Albumin/Globulin Ratio 1.4 % 08/26/20 04:20 Urine Color [place] (Yellow) 08/25/20 08:34 Urine Turbidity Slightly-cloudy (Clear) 08/25/20 08:34 Urine pH 5.0 (5.0-7.0) 08/25/20 08:34 Ur Specific [place] 1.027 (1.003-1.030) 08/25/20 08:34 Urine Protein 100 mg/dl mg/dL (Negative) 08/25/20 08:34 Urine Glucose (UA) Neg mg/dL (Negative) 08/25/20 08:34 Urine Ketones Tr mg/dL (Negative) 08/25/20 08:34 Urine Blood Neg (Negative) 08/25/20 08:34 Urine Nitrite Neg (Negative) 08/25/20 08:34 Urine Bilirubin Neg (Negative) 08/25/20 08:34 Urine Urobilinogen 4.0 mg/dL (<2.0) 08/25/20 08:34 Ur Leukocyte Esterase Neg (Negative) 08/25/20 08:34 Urine WBC (Auto) 7.0 /HPF (0.0-6.0) H 08/25/20 08:34 Urine RBC (Auto) 2.0 /HPF (0.0-6.0) 08/25/20 08:34 U Epithel Cells (Auto) 1.0 /HPF (0-13.0) 08/25/20 08:34 Urine Bacteria (Auto) 1+ /HPF (Negative) 08/25/20 08:34 Urine Mucus 3+ /HPF 08/25/20 08:34 Blood Type A POSITIVE 08/29/20 08:27 Antibody Screen Negative 08/29/20 08:27 Yun/IV: Voiding Method Condom Catheter Active Medications - Current Medications Current Medications: Generic Name Dose Route Start Last Admin Trade Name Freq PRN Reason Stop Dose Admin Acetaminophen 650 mg 08/25/20 17:12 Acetaminophen 325 Mg Tab PO Q4H PRN Pain MILD(1-3)/Fever >100.5/MENJIVAR Acetaminophen 650 mg 08/31/20 06:05 08/31/20 06:16 Acetaminophen 650 Mg Rect Supp GA 650 mg Q6H PRN Administration Pain, Mild (1-3) Albuterol 2.5 mg 08/25/20 17:12 Albuterol 2.5 Mg/3 Ml Nebu IH Q4HRT PRN Shortness Of Breath Benzocaine/Menthol 1 each 08/26/20 11:30 08/28/20 21:18 Benzocaine/Menthol Lozenge MM 1 each Q2H PRN Administration Sore Throat Dextrose 25 gm 08/30/20 07:32 Dextrose 50% In Water (25gm) 50 Ml Vial IV Q30MIN PRN Hypoglycemia Protocol Enalaprilat 1.25 mg 08/26/20 12:00 08/31/20 00:29 Enalaprilat 2.5 Mg/2 Ml Inj IV Not Given Q6HR BRIAN Folic Acid 1 mg 09/01/20 10:00 Folic Acid 1 Mg Tab PO DAILY BRIAN Hydralazine HCl 10 mg 08/26/20 10:00 08/28/20 23:58 Hydralazine 20 Mg/1 Ml Inj IV 10 mg Q4HR PRN Administration Hypertension Potassium Chloride/Dextrose/Sod Cl 20 meq in 1,000 mls @ 100 mls/hr 08/30/20 08:00 08/31/20 00:30 D5w/Ns W/Kcl 20meq IV 100 mls/hr DIRECT BRIAN Administration Thiamine HCl 100 mg/ Folic 1,011.2 mls @ 125 mls/hr 08/30/20 10:00 08/30/20 10:49 Acid 1 mg/ Multivitamins/ IV 08/31/20 18:06 125 mls/hr Minerals 10 ml/ Sodium DAILY BRIAN Administration Chloride Lorazepam 4 mg 08/29/20 02:54 08/30/20 16:05 Lorazepam 2 Mg/Ml Vial IV 4 mg Q1H PRN Administration CIWA-Ar 16-25 Lorazepam 2 mg 08/29/20 02:54 08/30/20 18:48 Lorazepam 2 Mg/Ml Vial IV 2 mg Q1H PRN Administration CIWA-Ar 8-15 Lorazepam 4 mg 08/29/20 02:54 Lorazepam 2 Mg/Ml Vial IV Q15MIN PRN CIWA-Ar >25 Multivitamins 1 each 09/01/20 10:00 Multivitamins ,Therapeutic Tab PO DAILY BRIAN Ondansetron HCl 4 mg 08/25/20 17:12 08/27/20 05:37 Ondansetron 4 Mg/2 Ml Inj IV 4 mg Q8H PRN Administration Nausea And Vomiting Pantoprazole Sodium 40 mg 08/27/20 18:00 08/30/20 10:44 Pantoprazole 40 Mg Inj IV 40 mg QDAY BRIAN Administration Sodium Chloride 10 ml 08/25/20 22:00 08/30/20 23:12 Sodium Chloride 0.9% 10 Ml Flush Syringe IV 10 ml BID BRIAN Administration Sodium Chloride 10 ml 08/25/20 17:12 Sodium Chloride 0.9% 10 Ml Flush Syringe IV PRN PRN LINE FLUSH Sterile Water 10 ml 08/30/20 03:13 08/30/20 04:39 Water For Inj Sterile (Pf) 10 Ml IM 1.2 ml DIRECT BRIAN Administration Thiamine HCl 100 mg 09/01/20 10:00 Thiamine 100 Mg Tab PO QDAY BRIAN
[2020-08-31] MEDS ORDERED: PIPERACILLIN/TAZOBACTAM 3.375 3.375 GM/50 ML BAG IV SCH (08:00)
[2020-08-31 08:29] LABS: BUN/Creatinine Ratio 16; Blood Urea Nitrogen 13 mg/dL (9-20); Calcium 9.2 mg/dL (8.4-10.2); Hemolysis Index 1
--- NOTE | 2020-08-31 08:56 | XRay Report ---
CHEST 1 VIEW INDICATION: fever. COMPARISON: Abdominal series 08/28/2020 FINDINGS: Support devices: The sidehole of the nasogastric tube terminates at the GE junction, recommend advanc ement 5 to 10 cm. Heart: Within normal limits. Lungs/Pleura: Hazy right perihilar opacity has developed which could represent a developing infiltrat e. The left lung is clear. No pleural effusion or pneumothorax. Additional findings: Trace free air is identified beneath the right hemidiaphragm consistent with rec ent surgery. IMPRESSION: Hazy right perihilar infiltration has developed which could represent a developing infiltrate. Signer Name: Herminio Sheets Jr, MD Signed: 08/31/2020 8:51 AM Workstation Name: [id number]
[2020-08-31] MEDS: ONDANSETRON 4 MG/2 ML INJ IV PRN (08:59)
[2020-08-31] MEDS: LORazepam 2 MG/ML VIAL IV PRN ×2 (08:59→13:04)
[2020-08-31] MEDS ORDERED: THIAMINE 100 MG, FOLIC ACID 1 MG, MULTIPLE VITAMIN INJ, ADULT 10 ML in SODIUM CHLORIDE ... IV ONE (09:00)
[2020-08-31] MEDS: PANTOPRAZOLE 40 MG INJ IV SCH (09:03)
[2020-08-31] MEDS: PIPERACIL/TAZOBACTA 4.5/NS 100 4.5 GM/100 ML VIAL IV SCH ×2 (09:07→16:14)
[2020-08-31] MEDS: POTASSIUM CHLORIDE 10 MEQ 10 MEQ/100 ML BAG IV SCH (12:49)
[2020-08-31 15:12] LABS: Hematocrit 37.2 % (35.5-45.6); Hemoglobin 12.7 gm/dl (11.8-15.2); Mean Corpuscular HGB Conc 34 % (32-34); Mean Corpuscular Volume 99 fl (84-94); Platelet Count 118 K/mm3 (140-440); Red Blood Count 3.77 M/mm3 (3.65-5.03); Red Cell Distribution Width 13.7 % (13.2-15.2)
--- NOTE | 2020-08-31 16:00 | Progress Note ---
Assessment and Plan 49 yo M s/p exploratory laparotomy, lysis of adhesions, POD 2 for SBO 1. SBO 2. DTs 2/2 etoh withdrawal Patient stable. Was febrile with possible new infiltrate on chest x-ray. White blood cell count is normal. NG tube output has decreased significantly. Plan: 1. NPO except minimal ice chips. Will start CLD only when out of restraints and less agitated. 2. IVF 3. prn pain and nausea control 4. OOB/ambulate 5. NGT pulled out by patient - will leave out and observe 6. DVT ppx 7. CIWA protocol 8. DVT ppx 9. Fevers likely secondary to atelectasis, possible developing lung infiltrate vs DTs. Patient needs to be mobilized and perform deep breathing exercises with IS however unable to do so due to extreme agitation from etoh withdrawal. High risk for PNA. 10. Blood cultures pending. Monitor for continued fevers. Dr. Sarmiento will be rounding 09/01/20 - 09/05/20 Thank you. Please call with any questions or concerns. Evaluation and treatment of this patient was during the time of the national and state emergency arising from COVID19 coronavirus pandemic. Treatment and procedures performed meet the current and available best practice and guidelines for patient during the COVID pandemic. Subjective Date of service: 08/31/20 Narrative: Patient seen and examined. Still extremely agitated. Does not complain of abdominal pain. He pulled out his own NG tube. He is passing flatus and per RN he had 1 small bowel movement last night. T-max of 102.9 early this morning. Objective Vital Signs - 12hr 08/31/20 08/31/20 08/31/20 05:33 06:16 06:37 Temperature 102.9 F H Pulse Rate 133 H 82 Respiratory 42 H 22 Rate Blood Pressure 127/82 Blood Pressure [Left] O2 Sat by Pulse 88 Oximetry 08/31/20 08/31/20 08/31/20 08:22 09:26 15:33 Temperature 99.9 F H Pulse Rate 140 H Respiratory 24 Rate Blood Pressure Blood Pressure 125/88 [Left] O2 Sat by Pulse 94 97 92 Oximetry - General physical appearance Narrative Exam: Gen.: Awake, alert, oriented x to person and place. Very agitated and needs to be redirected frequently. ENT: Trachea midline. No lymphadenopathy. No scleral icterus or conjunctival pallor CV: S1, S2 present Respiratory: No audible wheezes Abdomen: Soft, mildly distended, nontender. Midline dressing removed and incision is clean, dry, intact with saúl in place. No rebound, rigidity, guarding Extremities: No clubbing, cyanosis, edema - Labs 08/31/20 14:37 08/31/20 07:58 Diabetes panel 08/31/20 Range/Units 07:58 Sodium 146 H (137-145) mmol/L Potassium 3.7 (3.6-5.0) mmol/L Chloride 110.8 H (98-107) mmol/L Carbon Dioxide 25 (22-30) mmol/L BUN 13 (9-20) mg/dL Creatinine 0.8 (0.8-1.3) mg/dL Glucose 88 (75-100) mg/dL Calcium 9.2 (8.4-10.2) mg/dL Calcium panel 08/31/20 Range/Units 07:58 Calcium 9.2 (8.4-10.2) mg/dL Pituitary panel 08/31/20 Range/Units 07:58 Sodium 146 H (137-145) mmol/L Potassium 3.7 (3.6-5.0) mmol/L Chloride 110.8 H (98-107) mmol/L Carbon Dioxide 25 (22-30) mmol/L BUN 13 (9-20) mg/dL Creatinine 0.8 (0.8-1.3) mg/dL Glucose 88 (75-100) mg/dL Calcium 9.2 (8.4-10.2) mg/dL Adrenal panel 08/31/20 Range/Units 07:58 Sodium 146 H (137-145) mmol/L Potassium 3.7 (3.6-5.0) mmol/L Chloride 110.8 H (98-107) mmol/L Carbon Dioxide 25 (22-30) mmol/L BUN 13 (9-20) mg/dL Creatinine 0.8 (0.8-1.3) mg/dL Glucose 88 (75-100) mg/dL Calcium 9.2 (8.4-10.2) mg/dL
[2020-09-01] MEDS: PIPERACIL/TAZOBACTA 4.5/NS 100 4.5 GM/100 ML VIAL IV SCH ×3 (00:25→17:56)
[2020-09-01] MEDS: LORazepam 2 MG/ML VIAL IV PRN ×3 (03:08→22:56)
[2020-09-01] MEDS: D5NS W/KCL 20 MEQ 20 MEQ/1,000 ML BAG IV SCH (03:14)
[2020-09-01 06:10] LABS: BUN/Creatinine Ratio 19; Blood Urea Nitrogen 17 mg/dL (9-20); Calcium 8.7 mg/dL (8.4-10.2); Hemolysis Index 2
[2020-09-01] MEDS: ENALAPRILAT 2.5 MG/2 ML INJ IV SCH ×4 (06:44→17:56)
--- NOTE | 2020-09-01 08:33 | Progress Note ---
Assessment and Plan Assessment and plan: 49 YO Male with HTN, CAD S/P Stent Placement, [place], Nicotine Dependence presents to ED for evaluation. Patient reports "my stomach hurts". Patient states that he has experienced abdominal discomfort, distention, and unable to keep food down over the past 2 days with persistent symptoms over the same timeframe. Patient denies flatus as well as bowel movement during the same timeframe. Patient transported to [facility] via private vehicle for further care and evaluation of the aforementioned symptoms. The patient was seen and evaluated in the emergency department. All lab and imaging studies reviewed. Patient underwent CT scan of the abdomen pelvis and was found to have a small bowel obstruction, volume depletion, as well as hyponatremia. Patient admitted to surgical floor and treated with bowel rest and IV fluid resuscitation therapy, as well as pain control. Surgical team consulted in ED. Patient denies fever, chills, chest pain, palpitation, productive cough, skin rash, recent contact, or known exposure to COVID-19. Prior admission on 07/02/2015 reviewed. All medication listed at time of admission has been reconciled. 08/26: Continue supportive care. Patient reports to me that he drinks alcohol and has withdrawal symptoms when not drinking. We will start him on CIWA protocol in addition to banana bag with vitamins. Continue managementindicated by surgery. Patient has mild elevation in total bilirubin is also a concern for possible underlying UTI. Blood pressure mildly elevated will also address this. 15 minutes counseling provided to the patient on lifestyle modification and preventive care including tobacco use and alcohol use. He verbalized understanding 08/27: Continue supportive care. Follow imaging studies. I discussed with the sister and the patient's mother in detail. Hypokalemia. 08/28: Despite reported bowel movement x-ray of the abdomen shows slightly worse bowel obstruction. Will await further input from surgeon. At this time continue NG tube to low intermittent suction. 08/29: Patient overnight became confused possible DTs despite being on CIWA protocol and also on thiamine replacement. Continue current management we will change fluids to banana bag. I also updated the family patient's sister on new developments. Will obtain a CT of the head to rule out any acute pathology although accounted for. Acute metabolic encephalopathy Delirium tremens Small bowel obstruction due to adhesions Current Visit: Yes Status: Acute Plan to address problem: CT scan abdomen and pelvis, serial abdominal exam, bowel rest, IV fluid resuscitation therapy, surgical team consulted in ED, NG tube placement as per surgical team. Nicotine dependence Current Visit: Yes Status: Acute Qualifiers: Nicotine product type: cigarettes Substance use status: in withdrawal Qualified Code(s): F17.213 - Nicotine dependence, cigarettes, with withdrawal Plan to address problem: Smoking cessation counseling, supportive care, behavior change counseling, +15 minutes. Hyponatremia Current Visit: Yes Status: Acute Plan to address problem: IV fluid resuscitation therapy, BMP, repeat BMP in a.m. CAD (coronary artery disease) Current Visit: Yes Status: Acute Plan to address problem: Risk factor reduction, supportive care. EtOH use disorder CIWA protocol as indicated above DVT prophylaxis Current Visit: Yes Status: Acute Plan to address problem: SCD to bilateral lower extremities while in bed, patient is ambulatory 08/30/2020; patient had laparotomy and lysis of adhesion yesterday, general surgery is following. CT head was done and negative for acute intracranial pathology. Patient was agitated and trying to get out of the bed. Patient was requiring 4 mg of IV Ativan and despite that patient was trying to get out of the bed. Patient is not appropriate for floor management and he can be transferred to [facility] for close monitoring and management. Transfer order placed. Continue with CIWA protocol. 08/31/2020; patient had episodes of fever overnight and I ordered UA, chest x- ray, blood culture and empiric IV Zosyn. Patient is on restraints. Patient is in alcohol withdrawal and will continue with CIWA protocol. Patient had bowel movement this morning. Patient is still on NG tube, nutrition is per surgery recommendation. 09/01/2020; chest x-ray showed developing infiltrates and will continue with IV Zosyn. Blood cultures pending. Patient is on CIWA protocol for alcohol withdrawal. Patient started on ice chips. Surgery said okay to start him on clear liquid diet once he is off restraints. Hypernatremia; sodium was 150 this morning. I started the patient on D5W. Will monitor BMP History Interval history: Patient was seen and evaluated this morning Patient was confused but calm and cooperative Patient did not have any fever overnight Hospitalist Physical - Physical exam Narrative exam: Not in cardiopulmonary distress. NG tube in place The patient appeared well nourished and normally developed. Vital signs as documented. Head exam is unremarkable. No scleral icterus . Neck is without jugular venous distension, thyromegaly, or carotid bruits. Lungs are clear to auscultation. Cardiac exam reveals regular rate and Rhythm. Tachycardia. Abdominal exam reveals clean laparotomy incision. Extremities are nonedematous and both femoral and pedal pulses are normal. 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 - Constitutional Vitals: Temp Pulse Resp BP Pulse Ox 98.5 F 85 18 112/76 97 09/01/20 05:40 09/01/20 05:40 09/01/20 05:40 09/01/20 05:40 09/01/20 05:40 General appearance: Present: mild distress HEART Score - HEART Score Troponin: Troponin T < 0.010 ng/mL (0.00-0.029) 08/29/20 02:19 Results - Labs CBC & Chem 7: 08/31/20 14:37 09/01/20 05:13 Labs: Laboratory Last Values WBC 9.2 K/mm3 (4.5-11.0) 08/31/20 14:37 RBC 3.77 M/mm3 (3.65-5.03) 08/31/20 14:37 Hgb 12.7 gm/dl (11.8-15.2) 08/31/20 14:37 Hct 37.2 % (35.5-45.6) 08/31/20 14:37 MCV 99 fl (84-94) H 08/31/20 14:37 MCH 34 pg (28-32) H 08/31/20 14:37 MCHC 34 % (32-34) 08/31/20 14:37 RDW 13.7 % (13.2-15.2) 08/31/20 14:37 Plt Count 118 K/mm3 (140-440) L 08/31/20 14:37 Roberts % (Auto) Siebel Architect 08/26/20 04:20 Add Manual Diff Complete 08/26/20 04:20 Total Counted 100 08/26/20 04:20 Seg Neuts % (Manual) 67.0 % (40.0-70.0) 08/26/20 04:20 Lymphocytes % (Manual) 21.0 % (13.4-35.0) 08/26/20 04:20 Monocytes % (Manual) 12.0 % (0.0-7.3) H 08/26/20 04:20 Eosinophils % (Manual) 1.0 % (0.0-4.3) 08/25/20 09:15 Basophils % (Manual) 1.0 % (0.0-1.8) 08/25/20 09:15 Nucleated RBC % Not Reportable 08/26/20 04:20 Seg Neutrophils # Man 3.1 K/mm3 (1.8-7.7) 08/26/20 04:20 Band Neutrophils # 0.0 K/mm3 08/26/20 04:20 Lymphocytes # (Manual) 1.0 K/mm3 (1.2-5.4) L 08/26/20 04:20 Abs React Lymphs (Man) 0.0 K/mm3 08/26/20 04:20 Monocytes # (Manual) 0.6 K/mm3 (0.0-0.8) 08/26/20 04:20 Eosinophils # (Manual) 0.0 K/mm3 (0.0-0.4) 08/26/20 04:20 Basophils # (Manual) 0.0 K/mm3 (0.0-0.1) 08/26/20 04:20 Metamyelocytes # 0.0 K/mm3 08/26/20 04:20 Myelocytes # 0.0 K/mm3 08/26/20 04:20 Promyelocytes # 0.0 K/mm3 08/26/20 04:20 Blast Cells # 0.0 K/mm3 08/26/20 04:20 WBC Morphology Not Reportable 08/26/20 04:20 Hypersegmented Neuts Not Reportable 08/26/20 04:20 Hyposegmented Neuts Not Reportable 08/26/20 04:20 Hypogranular Neuts Not Reportable 08/26/20 04:20 Smudge Cells Not Reportable 08/26/20 04:20 Toxic Granulation Not Reportable 08/26/20 04:20 Toxic Vacuolation Not Reportable 08/26/20 04:20 Dohle Bodies Not Reportable 08/26/20 04:20 Pelger-Huet Anomaly Not Reportable 08/26/20 04:20 Layla Rods Not Reportable 08/26/20 04:20 Platelet Estimate Consistent w auto 08/26/20 04:20 Clumped Platelets Not Reportable 08/26/20 04:20 Plt Clumps, EDTA Not Reportable 08/26/20 04:20 Large Platelets Few 08/26/20 04:20 Giant Platelets Not Reportable 08/26/20 04:20 Platelet Satelliting Not Reportable 08/26/20 04:20 Plt Morphology Comment Not Reportable 08/26/20 04:20 RBC Morphology Normal 08/26/20 04:20 Dimorphic RBCs Not Reportable 08/26/20 04:20 Polychromasia Not Reportable 08/26/20 04:20 Hypochromasia Not Reportable 08/26/20 04:20 Poikilocytosis Not Reportable 08/26/20 04:20 Anisocytosis Not Reportable 08/26/20 04:20 Microcytosis Not Reportable 08/26/20 04:20 Macrocytosis Not Reportable 08/26/20 04:20 Spherocytes Not Reportable 08/26/20 04:20 Pappenheimer Bodies Not Reportable 08/26/20 04:20 Sickle Cells Not Reportable 08/26/20 04:20 Target Cells Not Reportable 08/26/20 04:20 Tear Drop Cells Not Reportable 08/26/20 04:20 Ovalocytes Not Reportable 08/26/20 04:20 Helmet Cells Not Reportable 08/26/20 04:20 [place] Bodies Not Reportable 08/26/20 04:20 [place] Rings Not Reportable 08/26/20 04:20 [place] Cells Not Reportable 08/26/20 04:20 Bite Cells Not Reportable 08/26/20 04:20 Crenated Cell Not Reportable 08/26/20 04:20 Elliptocytes Not Reportable 08/26/20 04:20 Acanthocytes (Spur) Not Reportable 08/26/20 04:20 Rouleaux Not Reportable 08/26/20 04:20 Hemoglobin C Crystals Not Reportable 08/26/20 04:20 Schistocytes Not Reportable 08/26/20 04:20 Malaria parasites Not Reportable 08/26/20 04:20 Adam Bodies Not Reportable 08/26/20 04:20 Hem Pathologist Commnt No 08/26/20 04:20 PT 13.4 Sec. (12.2-14.9) 08/28/20 08:00 INR 0.96 (0.87-1.13) 08/28/20 08:00 Sodium 150 mmol/L (137-145) H 09/01/20 05:13 Potassium 3.7 mmol/L (3.6-5.0) 09/01/20 05:13 Chloride 116.1 mmol/L (98-107) H 09/01/20 05:13 Carbon Dioxide 24 mmol/L (22-30) 09/01/20 05:13 Anion Gap 14 mmol/L 09/01/20 05:13 BUN 17 mg/dL (9-20) 09/01/20 05:13 Creatinine 0.9 mg/dL (0.8-1.3) 09/01/20 05:13 Estimated GFR > 60 ml/min 09/01/20 05:13 BUN/Creatinine Ratio 19 % 09/01/20 05:13 Glucose 109 mg/dL (75-100) H 09/01/20 05:13 POC Glucose 124 mg/dL (70-105) H 08/25/20 22:50 Calcium 8.7 mg/dL (8.4-10.2) 09/01/20 05:13 Magnesium 1.90 mg/dL (1.7-2.3) 08/29/20 23:22 Total Bilirubin 1.30 mg/dL (0.1-1.2) H 08/26/20 04:20 AST 18 units/L (5-40) 08/26/20 04:20 ALT 19 units/L (7-56) 08/26/20 04:20 Alkaline Phosphatase 60 units/L (35-129) 08/26/20 04:20 Troponin T < 0.010 ng/mL (0.00-0.029) 08/29/20 02:19 Total Protein 7.1 g/dL (6.3-8.2) 08/26/20 04:20 Albumin 4.2 g/dL (3.9-5) 08/26/20 04:20 Albumin/Globulin Ratio 1.4 % 08/26/20 04:20 Urine Color [place] (Yellow) 08/25/20 08:34 Urine Turbidity Slightly-cloudy (Clear) 08/25/20 08:34 Urine pH 5.0 (5.0-7.0) 08/25/20 08:34 Ur Specific [place] 1.027 (1.003-1.030) 08/25/20 08:34 Urine Protein 100 mg/dl mg/dL (Negative) 08/25/20 08:34 Urine Glucose (UA) Neg mg/dL (Negative) 08/25/20 08:34 Urine Ketones Tr mg/dL (Negative) 08/25/20 08:34 Urine Blood Neg (Negative) 08/25/20 08:34 Urine Nitrite Neg (Negative) 08/25/20 08:34 Urine Bilirubin Neg (Negative) 08/25/20 08:34 Urine Urobilinogen 4.0 mg/dL (<2.0) 08/25/20 08:34 Ur Leukocyte Esterase Neg (Negative) 08/25/20 08:34 Urine WBC (Auto) 7.0 /HPF (0.0-6.0) H 08/25/20 08:34 Urine RBC (Auto) 2.0 /HPF (0.0-6.0) 08/25/20 08:34 U Epithel Cells (Auto) 1.0 /HPF (0-13.0) 08/25/20 08:34 Urine Bacteria (Auto) 1+ /HPF (Negative) 08/25/20 08:34 Urine Mucus 3+ /HPF 08/25/20 08:34 Blood Type A POSITIVE 08/29/20 08:27 Antibody Screen Negative 08/29/20 08:27 Microbiology: Microbiology 08/31/20 07:58 Peripheral/Venous Blood Culture - Preliminary Culture in Progress 08/31/20 07:58 Peripheral/Venous Blood Culture - Preliminary Culture in Progress Yun/IV: Voiding Method Condom Catheter Active Medications - Current Medications Current Medications: Generic Name Dose Route Start Last Admin Trade Name Freq PRN Reason Stop Dose Admin Acetaminophen 650 mg 08/25/20 17:12 Acetaminophen 325 Mg Tab PO Q4H PRN Pain MILD(1-3)/Fever >100.5/MENJIVAR Acetaminophen 650 mg 08/31/20 06:05 08/31/20 13:07 Acetaminophen 650 Mg Rect Supp TN 650 mg Q6H PRN Administration Pain, Mild (1-3) Albuterol 2.5 mg 08/25/20 17:12 Albuterol 2.5 Mg/3 Ml Nebu IH Q4HRT PRN Shortness Of Breath Benzocaine/Menthol 1 each 08/26/20 11:30 08/28/20 21:18 Benzocaine/Menthol Lozenge MM 1 each Q2H PRN Administration Sore Throat Dextrose 25 gm 08/30/20 07:32 Dextrose 50% In Water (25gm) 50 Ml Vial IV Q30MIN PRN Hypoglycemia Protocol Enalaprilat 1.25 mg 08/26/20 12:00 09/01/20 06:44 Enalaprilat 2.5 Mg/2 Ml Inj IV 1.25 mg Q6HR BRIAN Administration Hydralazine HCl 10 mg 08/26/20 10:00 08/28/20 23:58 Hydralazine 20 Mg/1 Ml Inj IV 10 mg Q4HR PRN Administration Hypertension Potassium Chloride/Dextrose/Sod Cl 20 meq in 1,000 mls @ 100 mls/hr 08/30/20 08:00 09/01/20 03:14 D5w/Ns W/Kcl 20meq IV 100 mls/hr DIRECT BRIAN Administration Piperacillin Sod/Tazobactam Sod 4.5 gm in 100 mls @ 200 mls/hr 08/31/20 08:00 09/01/20 00:25 Zosyn/Ns 4.5gm/100ml IV 200 mls/hr Q8H BRIAN Administration Dextrose 1,000 mls @ 75 mls/hr 09/01/20 09:00 D5w IV DIRECT BRIAN Lorazepam 4 mg 08/29/20 02:54 09/01/20 03:08 Lorazepam 2 Mg/Ml Vial IV 4 mg Q1H PRN Administration CIWA-Ar 16-25 Lorazepam 2 mg 08/29/20 02:54 08/30/20 18:48 Lorazepam 2 Mg/Ml Vial IV 2 mg Q1H PRN Administration CIWA-Ar 8-15 Lorazepam 4 mg 08/29/20 02:54 Lorazepam 2 Mg/Ml Vial IV Q15MIN PRN CIWA-Ar >25 Multivitamins 1 each 09/01/20 10:00 Multivitamins ,Therapeutic Tab PO DAILY BRIAN Ondansetron HCl 4 mg 08/25/20 17:12 08/31/20 08:59 Ondansetron 4 Mg/2 Ml Inj IV 4 mg Q8H PRN Administration Nausea And Vomiting Pantoprazole Sodium 40 mg 08/27/20 18:00 08/31/20 09:03 Pantoprazole 40 Mg Inj IV 40 mg QDAY BRIAN Administration Sodium Chloride 10 ml 08/25/20 22:00 09/01/20 03:10 Sodium Chloride 0.9% 10 Ml Flush Syringe IV 10 ml BID BRIAN Administration Sodium Chloride 10 ml 08/25/20 17:12 Sodium Chloride 0.9% 10 Ml Flush Syringe IV PRN PRN LINE FLUSH Sterile Water 10 ml 08/30/20 03:13 08/30/20 04:39 Water For Inj Sterile (Pf) 10 Ml IM 1.2 ml DIRECT BRIAN Administration
[2020-09-01] MEDS ORDERED: THIAMINE 100 MG TAB PO SCH (10:00)
[2020-09-01] MEDS ORDERED: FOLIC ACID 1 MG TAB PO SCH (10:00)
--- NOTE | 2020-09-01 12:56 | Progress Note ---
Assessment and Plan POD# 3 s/p ex-lap with JEREMIAH for SBO. Afebrile and stable with agitation likely due to alcohol withdrawal. Awaiting return of bowel function. Once patient is calm enough to be out of restraints can be started on trial of clear liquids. Pt is at risk for aspiration while in restraints. Subjective Date of service: 09/01/20 Narrative: no acute events overnight. Pt continues to be agitated requiring restraints. He was able to be ambulated with PT earlier. Pt denies pain, nausea or vomiting. He says he has been passing gas. No bowel movement. Objective Vital Signs - 12hr 09/01/20 09/01/20 05:40 09:15 Temperature 98.5 F Pulse Rate 85 Respiratory 18 Rate Blood Pressure 112/76 O2 Sat by Pulse 97 95 Oximetry - General physical appearance well developed, no distress, no pain - Respiratory normal expansion, normal respiratory effort - Abdomen soft, other (staple line intact, appropriately tender to palpation) - Labs 08/31/20 14:37 09/01/20 05:13 Diabetes panel 09/01/20 Range/Units 05:13 Sodium 150 H (137-145) mmol/L Potassium 3.7 (3.6-5.0) mmol/L Chloride 116.1 H (98-107) mmol/L Carbon Dioxide 24 (22-30) mmol/L BUN 17 (9-20) mg/dL Creatinine 0.9 (0.8-1.3) mg/dL Glucose 109 H (75-100) mg/dL Calcium 8.7 (8.4-10.2) mg/dL Calcium panel 09/01/20 Range/Units 05:13 Calcium 8.7 (8.4-10.2) mg/dL Pituitary panel 09/01/20 Range/Units 05:13 Sodium 150 H (137-145) mmol/L Potassium 3.7 (3.6-5.0) mmol/L Chloride 116.1 H (98-107) mmol/L Carbon Dioxide 24 (22-30) mmol/L BUN 17 (9-20) mg/dL Creatinine 0.9 (0.8-1.3) mg/dL Glucose 109 H (75-100) mg/dL Calcium 8.7 (8.4-10.2) mg/dL Adrenal panel 09/01/20 Range/Units 05:13 Sodium 150 H (137-145) mmol/L Potassium 3.7 (3.6-5.0) mmol/L Chloride 116.1 H (98-107) mmol/L Carbon Dioxide 24 (22-30) mmol/L BUN 17 (9-20) mg/dL Creatinine 0.9 (0.8-1.3) mg/dL Glucose 109 H (75-100) mg/dL Calcium 8.7 (8.4-10.2) mg/dL
[2020-09-01] MEDS: ONDANSETRON 4 MG/2 ML INJ IV PRN (14:24)
[2020-09-01] MEDS: PANTOPRAZOLE 40 MG INJ IV SCH (14:28)
[2020-09-02] MEDS: PIPERACIL/TAZOBACTA 4.5/NS 100 4.5 GM/100 ML VIAL IV SCH ×3 (00:48→18:05)
[2020-09-02] MEDS: ENALAPRILAT 2.5 MG/2 ML INJ IV SCH ×3 (01:53→18:36)
[2020-09-02] MEDS: DEXTROSE 5% IN WATER 1,000 ML IV SCH (08:26)
--- NOTE | 2020-09-02 09:20 | Progress Note ---
Assessment and Plan Assessment and plan: 49 YO Male with HTN, CAD S/P Stent Placement, [place], Nicotine Dependence presents to ED for evaluation. Patient reports "my stomach hurts". Patient states that he has experienced abdominal discomfort, distention, and unable to keep food down over the past 2 days with persistent symptoms over the same timeframe. Patient denies flatus as well as bowel movement during the same timeframe. Patient transported to [facility] via private vehicle for further care and evaluation of the aforementioned symptoms. The patient was seen and evaluated in the emergency department. All lab and imaging studies reviewed. Patient underwent CT scan of the abdomen pelvis and was found to have a small bowel obstruction, volume depletion, as well as hyponatremia. Patient admitted to surgical floor and treated with bowel rest and IV fluid resuscitation therapy, as well as pain control. Surgical team consulted in ED. Patient denies fever, chills, chest pain, palpitation, productive cough, skin rash, recent contact, or known exposure to COVID-19. Prior admission on 07/02/2015 reviewed. All medication listed at time of admission has been reconciled. 08/26: Continue supportive care. Patient reports to me that he drinks alcohol and has withdrawal symptoms when not drinking. We will start him on CIWA protocol in addition to banana bag with vitamins. Continue managementindicated by surgery. Patient has mild elevation in total bilirubin is also a concern for possible underlying UTI. Blood pressure mildly elevated will also address this. 15 minutes counseling provided to the patient on lifestyle modification and preventive care including tobacco use and alcohol use. He verbalized understanding 08/27: Continue supportive care. Follow imaging studies. I discussed with the sister and the patient's mother in detail. Hypokalemia. 08/28: Despite reported bowel movement x-ray of the abdomen shows slightly worse bowel obstruction. Will await further input from surgeon. At this time continue NG tube to low intermittent suction. 08/29: Patient overnight became confused possible DTs despite being on CIWA protocol and also on thiamine replacement. Continue current management we will change fluids to banana bag. I also updated the family patient's sister on new developments. Will obtain a CT of the head to rule out any acute pathology although accounted for. Acute metabolic encephalopathy Delirium tremens Small bowel obstruction due to adhesions Current Visit: Yes Status: Acute Plan to address problem: CT scan abdomen and pelvis, serial abdominal exam, bowel rest, IV fluid resuscitation therapy, surgical team consulted in ED, NG tube placement as per surgical team. Nicotine dependence Current Visit: Yes Status: Acute Qualifiers: Nicotine product type: cigarettes Substance use status: in withdrawal Qualified Code(s): F17.213 - Nicotine dependence, cigarettes, with withdrawal Plan to address problem: Smoking cessation counseling, supportive care, behavior change counseling, +15 minutes. Hyponatremia Current Visit: Yes Status: Acute Plan to address problem: IV fluid resuscitation therapy, BMP, repeat BMP in a.m. CAD (coronary artery disease) Current Visit: Yes Status: Acute Plan to address problem: Risk factor reduction, supportive care. EtOH use disorder CIWA protocol as indicated above DVT prophylaxis Current Visit: Yes Status: Acute Plan to address problem: SCD to bilateral lower extremities while in bed, patient is ambulatory 08/30/2020; patient had laparotomy and lysis of adhesion yesterday, general surgery is following. CT head was done and negative for acute intracranial pathology. Patient was agitated and trying to get out of the bed. Patient was requiring 4 mg of IV Ativan and despite that patient was trying to get out of the bed. Patient is not appropriate for floor management and he can be transferred to [facility] for close monitoring and management. Transfer order placed. Continue with CIWA protocol. 08/31/2020; patient had episodes of fever overnight and I ordered UA, chest x- ray, blood culture and empiric IV Zosyn. Patient is on restraints. Patient is in alcohol withdrawal and will continue with CIWA protocol. Patient had bowel movement this morning. Patient is still on NG tube, nutrition is per surgery recommendation. 09/01/2020; chest x-ray showed developing infiltrates and will continue with IV Zosyn. Blood cultures pending. Patient is on CIWA protocol for alcohol withdrawal. Patient started on ice chips. Surgery said okay to start him on clear liquid diet once he is off restraints. Hypernatremia; sodium was 150 this morning. I started the patient on D5W. Will monitor BMP 09/02/2020; patient did not have any fever overnight. Patient is on CIWA protocol for alcohol withdrawal and last dose of benzo was last night, will continue to monitor. Surgery is following and recommend to start him on clear liquid diet once he is off restraints. Hyponatremia; patient is on D5W and BMP was ordered and was not done. We will follow. Patient is alert and oriented this morning. I asked the nurse to take off restraint and see how he is doing. If patient is doing well will take off all the restraints and put him on clear liquid diet. Start him on ice chips for now. I communicated with the nurse about this and she understood. History Interval history: Patient was seen and evaluated this morning Patient was alert and oriented Patient did not have any fever overnight Hospitalist Physical - Physical exam Narrative exam: Not in cardiopulmonary distress. Dry mouth The patient appeared well nourished and normally developed. Vital signs as documented. Head exam is unremarkable. No scleral icterus . Neck is without jugular venous distension, thyromegaly, or carotid bruits. Lungs are clear to auscultation. Cardiac exam reveals regular rate and Rhythm. Tachycardia. Abdominal exam reveals clean laparotomy incision. Extremities are nonedematous and both femoral and pedal pulses are normal. 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 - Constitutional Vitals: Temp Pulse Resp BP Pulse Ox 98.7 F 110 H 20 102/77 100 09/02/20 05:07 09/02/20 05:07 09/02/20 05:07 09/02/20 05:07 09/02/20 05:07 General appearance: Present: mild distress HEART Score - HEART Score Troponin: Troponin T < 0.010 ng/mL (0.00-0.029) 08/29/20 02:19 Results - Labs CBC & Chem 7: 08/31/20 14:37 09/02/20 07:41 Labs: Laboratory Last Values WBC 9.2 K/mm3 (4.5-11.0) 08/31/20 14:37 RBC 3.77 M/mm3 (3.65-5.03) 08/31/20 14:37 Hgb 12.7 gm/dl (11.8-15.2) 08/31/20 14:37 Hct 37.2 % (35.5-45.6) 08/31/20 14:37 MCV 99 fl (84-94) H 08/31/20 14:37 MCH 34 pg (28-32) H 08/31/20 14:37 MCHC 34 % (32-34) 08/31/20 14:37 RDW 13.7 % (13.2-15.2) 08/31/20 14:37 Plt Count 118 K/mm3 (140-440) L 08/31/20 14:37 [place] % (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) 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[employer] 08/26/20 04:20 Add Manual Diff Complete 08/26/20 04:20 Total Counted 100 08/26/20 04:20 Seg Neuts % (Manual) 67.0 % (40.0-70.0) 08/26/20 04:20 Lymphocytes % (Manual) 21.0 % (13.4-35.0) 08/26/20 04:20 Monocytes % (Manual) 12.0 % (0.0-7.3) H 08/26/20 04:20 Eosinophils % (Manual) 1.0 % (0.0-4.3) 08/25/20 09:15 Basophils % (Manual) 1.0 % (0.0-1.8) 08/25/20 09:15 Nucleated RBC % Not Reportable 08/26/20 04:20 Seg Neutrophils # Man 3.1 K/mm3 (1.8-7.7) 08/26/20 04:20 Band Neutrophils # 0.0 K/mm3 08/26/20 04:20 Lymphocytes # (Manual) 1.0 K/mm3 (1.2-5.4) L 08/26/20 04:20 Abs React Lymphs (Man) 0.0 K/mm3 08/26/20 04:20 Monocytes # (Manual) 0.6 K/mm3 (0.0-0.8) 08/26/20 04:20 Eosinophils # (Manual) 0.0 K/mm3 (0.0-0.4) 08/26/20 04:20 Basophils # (Manual) 0.0 K/mm3 (0.0-0.1) 08/26/20 04:20 Metamyelocytes # 0.0 K/mm3 08/26/20 04:20 Myelocytes # 0.0 K/mm3 08/26/20 04:20 Promyelocytes # 0.0 K/mm3 08/26/20 04:20 Blast Cells # 0.0 K/mm3 08/26/20 04:20 WBC Morphology Not Reportable 08/26/20 04:20 Hypersegmented Neuts Not Reportable 08/26/20 04:20 Hyposegmented Neuts Not Reportable 08/26/20 04:20 Hypogranular Neuts Not Reportable 08/26/20 04:20 Smudge Cells Not Reportable 08/26/20 04:20 Toxic Granulation Not Reportable 08/26/20 04:20 Toxic Vacuolation Not Reportable 08/26/20 04:20 Dohle Bodies Not Reportable 08/26/20 04:20 Pelger-Huet Anomaly Not Reportable 08/26/20 04:20 Layla Rods Not Reportable 08/26/20 04:20 Platelet Estimate Consistent w auto 08/26/20 04:20 Clumped Platelets Not Reportable 08/26/20 04:20 Plt Clumps, EDTA Not Reportable 08/26/20 04:20 Large Platelets Few 08/26/20 04:20 Giant Platelets Not Reportable 08/26/20 04:20 Platelet Satelliting Not Reportable 08/26/20 04:20 Plt Morphology Comment Not Reportable 08/26/20 04:20 RBC Morphology Normal 08/26/20 04:20 Dimorphic RBCs Not Reportable 08/26/20 04:20 Polychromasia Not Reportable 08/26/20 04:20 Hypochromasia Not Reportable 08/26/20 04:20 Poikilocytosis Not Reportable 08/26/20 04:20 Anisocytosis Not Reportable 08/26/20 04:20 Microcytosis Not Reportable 08/26/20 04:20 Macrocytosis Not Reportable 08/26/20 04:20 Spherocytes Not Reportable 08/26/20 04:20 Pappenheimer Bodies Not Reportable 08/26/20 04:20 Sickle Cells Not Reportable 08/26/20 04:20 Target Cells Not Reportable 08/26/20 04:20 Tear Drop Cells Not Reportable 08/26/20 04:20 Ovalocytes Not Reportable 08/26/20 04:20 Helmet Cells Not Reportable 08/26/20 04:20 [place] Bodies Not Reportable 08/26/20 04:20 [place] Rings Not Reportable 08/26/20 04:20 [place] Cells Not Reportable 08/26/20 04:20 Bite Cells Not Reportable 08/26/20 04:20 Crenated Cell Not Reportable 08/26/20 04:20 Elliptocytes Not Reportable 08/26/20 04:20 Acanthocytes (Spur) Not Reportable 08/26/20 04:20 Rouleaux Not Reportable 08/26/20 04:20 Hemoglobin C Crystals Not Reportable 08/26/20 04:20 Schistocytes Not Reportable 08/26/20 04:20 Malaria parasites Not Reportable 08/26/20 04:20 Adam Bodies Not Reportable 08/26/20 04:20 Hem Pathologist Commnt No 08/26/20 04:20 PT 13.4 Sec. (12.2-14.9) 08/28/20 08:00 INR 0.96 (0.87-1.13) 08/28/20 08:00 Sodium 150 mmol/L (137-145) H 09/01/20 05:13 Potassium 3.7 mmol/L (3.6-5.0) 09/01/20 05:13 Chloride 116.1 mmol/L (98-107) H 09/01/20 05:13 Carbon Dioxide 24 mmol/L (22-30) 09/01/20 05:13 Anion Gap 14 mmol/L 09/01/20 05:13 BUN 17 mg/dL (9-20) 09/01/20 05:13 Creatinine 0.9 mg/dL (0.8-1.3) 09/01/20 05:13 Estimated GFR > 60 ml/min 09/01/20 05:13 BUN/Creatinine Ratio 19 % 09/01/20 05:13 Glucose 109 mg/dL (75-100) H 09/01/20 05:13 POC Glucose 124 mg/dL (70-105) H 08/25/20 22:50 Calcium 8.7 mg/dL (8.4-10.2) 09/01/20 05:13 Magnesium 1.90 mg/dL (1.7-2.3) 08/29/20 23:22 Total Bilirubin 1.30 mg/dL (0.1-1.2) H 08/26/20 04:20 AST 18 units/L (5-40) 08/26/20 04:20 ALT 19 units/L (7-56) 08/26/20 04:20 Alkaline Phosphatase 60 units/L (35-129) 08/26/20 04:20 Troponin T < 0.010 ng/mL (0.00-0.029) 08/29/20 02:19 Total Protein 7.1 g/dL (6.3-8.2) 08/26/20 04:20 Albumin 4.2 g/dL (3.9-5) 08/26/20 04:20 Albumin/Globulin Ratio 1.4 % 08/26/20 04:20 Urine Color [place] (Yellow) 08/25/20 08:34 Urine Turbidity Slightly-cloudy (Clear) 08/25/20 08:34 Urine pH 5.0 (5.0-7.0) 08/25/20 08:34 Ur Specific [place] 1.027 (1.003-1.030) 08/25/20 08:34 Urine Protein 100 mg/dl mg/dL (Negative) 08/25/20 08:34 Urine Glucose (UA) Neg mg/dL (Negative) 08/25/20 08:34 Urine Ketones Tr mg/dL (Negative) 08/25/20 08:34 Urine Blood Neg (Negative) 08/25/20 08:34 Urine Nitrite Neg (Negative) 08/25/20 08:34 Urine Bilirubin Neg (Negative) 08/25/20 08:34 Urine Urobilinogen 4.0 mg/dL (<2.0) 08/25/20 08:34 Ur Leukocyte Esterase Neg (Negative) 08/25/20 08:34 Urine WBC (Auto) 7.0 /HPF (0.0-6.0) H 08/25/20 08:34 Urine RBC (Auto) 2.0 /HPF (0.0-6.0) 08/25/20 08:34 U Epithel Cells (Auto) 1.0 /HPF (0-13.0) 08/25/20 08:34 Urine Bacteria (Auto) 1+ /HPF (Negative) 08/25/20 08:34 Urine Mucus 3+ /HPF 08/25/20 08:34 Blood Type A POSITIVE 08/29/20 08:27 Antibody Screen Negative 08/29/20 08:27 Microbiology: Microbiology 08/31/20 07:58 Peripheral/Venous Blood Culture - Preliminary NO GROWTH AFTER 48 HOURS 08/31/20 07:58 Peripheral/Venous Blood Culture - Preliminary NO GROWTH AFTER 48 HOURS Yun/IV: Voiding Method Condom Catheter Active Medications - Current Medications Current Medications: Generic Name Dose Route Start Last Admin Trade Name Freq PRN Reason Stop Dose Admin Acetaminophen 650 mg 08/25/20 17:12 Acetaminophen 325 Mg Tab PO Q4H PRN Pain MILD(1-3)/Fever >100.5/MENJIVAR Acetaminophen 650 mg 08/31/20 06:05 08/31/20 13:07 Acetaminophen 650 Mg Rect Supp PA 650 mg Q6H PRN Administration Pain, Mild (1-3) Albuterol 2.5 mg 08/25/20 17:12 Albuterol 2.5 Mg/3 Ml Nebu IH Q4HRT PRN Shortness Of Breath Benzocaine/Menthol 1 each 08/26/20 11:30 08/28/20 21:18 Benzocaine/Menthol Lozenge MM 1 each Q2H PRN Administration Sore Throat Dextrose 25 gm 08/30/20 07:32 Dextrose 50% In Water (25gm) 50 Ml Vial IV Q30MIN PRN Hypoglycemia Protocol Enalaprilat 1.25 mg 08/26/20 12:00 09/02/20 01:53 Enalaprilat 2.5 Mg/2 Ml Inj IV 1.25 mg Q6HR BRIAN Administration Hydralazine HCl 10 mg 08/26/20 10:00 08/28/20 23:58 Hydralazine 20 Mg/1 Ml Inj IV 10 mg Q4HR PRN Administration Hypertension Piperacillin Sod/Tazobactam Sod 4.5 gm in 100 mls @ 200 mls/hr 08/31/20 08:00 09/02/20 01:50 Zosyn/Ns 4.5gm/100ml IV Infused Q8H BRIAN Infusion Dextrose 1,000 mls @ 75 mls/hr 09/01/20 09:00 09/02/20 08:26 D5w IV 75 mls/hr DIRECT BRIAN Administration Lorazepam 4 mg 08/29/20 02:54 09/01/20 22:56 Lorazepam 2 Mg/Ml Vial IV 4 mg Q1H PRN Administration CIWA-Ar 16-25 Lorazepam 2 mg 08/29/20 02:54 08/30/20 18:48 Lorazepam 2 Mg/Ml Vial IV 2 mg Q1H PRN Administration CIWA-Ar 8-15 Lorazepam 4 mg 08/29/20 02:54 Lorazepam 2 Mg/Ml Vial IV Q15MIN PRN CIWA-Ar >25 Multivitamins 1 each 09/05/20 10:00 Multivitamins ,Therapeutic Tab PO DAILY BRIAN Ondansetron HCl 4 mg 08/25/20 17:12 09/01/20 14:24 Ondansetron 4 Mg/2 Ml Inj IV 4 mg Q8H PRN Administration Nausea And Vomiting Pantoprazole Sodium 40 mg 08/27/20 18:00 09/01/20 14:28 Pantoprazole 40 Mg Inj IV 40 mg QDAY BRIAN Administration Sodium Chloride 10 ml 08/25/20 22:00 09/01/20 22:54 Sodium Chloride 0.9% 10 Ml Flush Syringe IV 10 ml BID BRIAN Administration Sodium Chloride 10 ml 08/25/20 17:12 Sodium Chloride 0.9% 10 Ml Flush Syringe IV PRN PRN LINE FLUSH Sterile Water 10 ml 08/30/20 03:13 08/30/20 04:39 Water For Inj Sterile (Pf) 10 Ml IM 1.2 ml DIRECT BRIAN Administration Nutrition/Malnutrition Assess - Dietary Evaluation Nutrition/Malnutrition Findings: Nutrition Notes Start: 09/01/20 16:04 Freq: Status: Active Protocol: Document 09/01/20 16:04 INDU (Rec: 09/01/20 16:09 MIDOC [id number]) Nutrition Notes Need for Assessment generated from: LOS Initial or Follow up Assessment Current Diagnosis Small Bowel Obstruction Other Pertinent Diagnosis s/p exp lap with lysis of adhesions, EtOH withdrawal Current Diet NPO Labs/Tests Na 150 Pertinent Medications D5W at 75ml/hr Height 6 ft 1 in Weight 81.647 kg [employer] Body Weight (kg) 83.63 BMI 23.7 Weight Status Appropriate Subjective/Other Information Pt screened for LOS. He is Day 7 NPO. May start cl liq diet today. Pt on [facility] protocol for EtOH withdrawal. Burn Absent Trauma Absent Minimum of two criteria No #1 Nutrition Diagnosis Altered GI function Etiology SBO As Evidenced by Signs and Symptoms pt been NPO for 7 days Is patient on ventilator? No Is Patient Ambulatory and/or Out of Bed No REE-([facility]-confined to bed) 3345.628 Calculation Used for Recommendations [facility] Additional Notes Pro needs 0.8-1g/k-82g/ day Fluid needs 1ml/kcal Nutrition Intervention Change Diet Order: Advanced diet when medically feasible Goal #1 Diet advancement to meet nutrient needs Anticipated Discharge Needs: Unable to identify at this time Follow-Up By: 09/04/20 Additional Comments F/U: diet advancement
[2020-09-02 09:52] LABS: Blood Urea Nitrogen 21 mg/dL (9-20); Calcium 8.9 mg/dL (8.4-10.2); Hemolysis Index 1
[2020-09-02 10:15] LABS: BUN/Creatinine Ratio 30
--- NOTE | 2020-09-02 14:50 | Progress Note ---
Assessment and Plan POD# 4 s/p ex-lap with JEREMIAH for SBO. Afebrile and stable with agitation likely due to alcohol withdrawal. Showing signs of resolved post op ileus. Will start on clear liquds. Pt should be fed without restraints to decrease aspiration risk. And do not leave liquids unattended in room. If tolerates will advance to full liquids tomorrow. Can be discharged on full liquids if tolerates from a surgical perspective. Subjective Date of service: 09/02/20 Patient Reports: Positive: flatus Narrative: No acute events overnight. Pt was still in restraints due to agitation. He was calm and cooperative during this evaluation with his mother in the room. Pt had trial of liquids without difficulty. Objective Vital Signs - 12hr 09/02/20 09/02/20 09/02/20 05:07 10:56 12:01 Temperature 98.7 F 98.0 F Pulse Rate 110 H 56 L Respiratory 20 20 22 Rate Blood Pressure 102/77 130/89 O2 Sat by Pulse 100 95 94 Oximetry - General physical appearance well developed, well nourished, no distress, no pain - Respiratory normal expansion, normal respiratory effort - Abdomen soft, not tender, other (staple line clean, dry and intact) - Labs 08/31/20 14:37 09/02/20 07:41 Diabetes panel 09/02/20 Range/Units 07:41 Sodium 150 H (137-145) mmol/L Potassium 3.9 (3.6-5.0) mmol/L Chloride 115.0 H (98-107) mmol/L Carbon Dioxide 23 (22-30) mmol/L BUN 21 H (9-20) mg/dL Creatinine 0.7 L (0.8-1.3) mg/dL Glucose 82 (75-100) mg/dL Calcium 8.9 (8.4-10.2) mg/dL Calcium panel 09/02/20 Range/Units 07:41 Calcium 8.9 (8.4-10.2) mg/dL Pituitary panel 09/02/20 Range/Units 07:41 Sodium 150 H (137-145) mmol/L Potassium 3.9 (3.6-5.0) mmol/L Chloride 115.0 H (98-107) mmol/L Carbon Dioxide 23 (22-30) mmol/L BUN 21 H (9-20) mg/dL Creatinine 0.7 L (0.8-1.3) mg/dL Glucose 82 (75-100) mg/dL Calcium 8.9 (8.4-10.2) mg/dL Adrenal panel 09/02/20 Range/Units 07:41 Sodium 150 H (137-145) mmol/L Potassium 3.9 (3.6-5.0) mmol/L Chloride 115.0 H (98-107) mmol/L Carbon Dioxide 23 (22-30) mmol/L BUN 21 H (9-20) mg/dL Creatinine 0.7 L (0.8-1.3) mg/dL Glucose 82 (75-100) mg/dL Calcium 8.9 (8.4-10.2) mg/dL
[2020-09-02] MEDS: PANTOPRAZOLE 40 MG INJ IV SCH (17:52)
[2020-09-03] MEDS: ENALAPRILAT 2.5 MG/2 ML INJ IV SCH ×4 (00:19→17:50)
[2020-09-03] MEDS: PIPERACIL/TAZOBACTA 4.5/NS 100 4.5 GM/100 ML VIAL IV SCH ×2 (00:20→08:36)
[2020-09-03 06:14] LABS: BUN/Creatinine Ratio 21; Blood Urea Nitrogen 17 mg/dL (9-20); Calcium 8.3 mg/dL (8.4-10.2); Hemolysis Index 6
--- NOTE | 2020-09-03 07:55 | Progress Note ---
Assessment and Plan Assessment and plan: 49 YO Male with HTN, CAD S/P Stent Placement, [place], Nicotine Dependence presents to ED for evaluation. Patient reports "my stomach hurts". Patient states that he has experienced abdominal discomfort, distention, and unable to keep food down over the past 2 days with persistent symptoms over the same timeframe. Patient denies flatus as well as bowel movement during the same timeframe. Patient transported to [facility] via private vehicle for further care and evaluation of the aforementioned symptoms. The patient was seen and evaluated in the emergency department. All lab and imaging studies reviewed. Patient underwent CT scan of the abdomen pelvis and was found to have a small bowel obstruction, volume depletion, as well as hyponatremia. Patient admitted to surgical floor and treated with bowel rest and IV fluid resuscitation therapy, as well as pain control. Surgical team consulted in ED. Patient denies fever, chills, chest pain, palpitation, productive cough, skin rash, recent contact, or known exposure to COVID-19. Prior admission on 07/02/2015 reviewed. All medication listed at time of admission has been reconciled. 08/26: Continue supportive care. Patient reports to me that he drinks alcohol and has withdrawal symptoms when not drinking. We will start him on CIWA protocol in addition to banana bag with vitamins. Continue managementindicated by surgery. Patient has mild elevation in total bilirubin is also a concern for possible underlying UTI. Blood pressure mildly elevated will also address this. 15 minutes counseling provided to the patient on lifestyle modification and preventive care including tobacco use and alcohol use. He verbalized understanding 08/27: Continue supportive care. Follow imaging studies. I discussed with the sister and the patient's mother in detail. Hypokalemia. 08/28: Despite reported bowel movement x-ray of the abdomen shows slightly worse bowel obstruction. Will await further input from surgeon. At this time continue NG tube to low intermittent suction. 08/29: Patient overnight became confused possible DTs despite being on CIWA protocol and also on thiamine replacement. Continue current management we will change fluids to banana bag. I also updated the family patient's sister on new developments. Will obtain a CT of the head to rule out any acute pathology although accounted for. Acute metabolic encephalopathy Delirium tremens Small bowel obstruction due to adhesions Current Visit: Yes Status: Acute Plan to address problem: CT scan abdomen and pelvis, serial abdominal exam, bowel rest, IV fluid resuscitation therapy, surgical team consulted in ED, NG tube placement as per surgical team. Nicotine dependence Current Visit: Yes Status: Acute Qualifiers: Nicotine product type: cigarettes Substance use status: in withdrawal Qualified Code(s): F17.213 - Nicotine dependence, cigarettes, with withdrawal Plan to address problem: Smoking cessation counseling, supportive care, behavior change counseling, +15 minutes. Hyponatremia Current Visit: Yes Status: Acute Plan to address problem: IV fluid resuscitation therapy, BMP, repeat BMP in a.m. CAD (coronary artery disease) Current Visit: Yes Status: Acute Plan to address problem: Risk factor reduction, supportive care. EtOH use disorder CIWA protocol as indicated above DVT prophylaxis Current Visit: Yes Status: Acute Plan to address problem: SCD to bilateral lower extremities while in bed, patient is ambulatory 08/30/2020; patient had laparotomy and lysis of adhesion yesterday, general surgery is following. CT head was done and negative for acute intracranial pathology. Patient was agitated and trying to get out of the bed. Patient was requiring 4 mg of IV Ativan and despite that patient was trying to get out of the bed. Patient is not appropriate for floor management and he can be transferred to [facility] for close monitoring and management. Transfer order placed. Continue with CIWA protocol. 08/31/2020; patient had episodes of fever overnight and I ordered UA, chest x- ray, blood culture and empiric IV Zosyn. Patient is on restraints. Patient is in alcohol withdrawal and will continue with CIWA protocol. Patient had bowel movement this morning. Patient is still on NG tube, nutrition is per surgery recommendation. 09/01/2020; chest x-ray showed developing infiltrates and will continue with IV Zosyn. Blood cultures pending. Patient is on CIWA protocol for alcohol withdrawal. Patient started on ice chips. Surgery said okay to start him on clear liquid diet once he is off restraints. Hypernatremia; sodium was 150 this morning. I started the patient on D5W. Will monitor BMP 09/02/2020; patient did not have any fever overnight. Patient is on CIWA protocol for alcohol withdrawal and last dose of benzo was last night, will continue to monitor. Surgery is following and recommend to start him on clear liquid diet once he is off restraints. Hyponatremia; patient is on D5W and BMP was ordered and was not done. We will follow. Patient is alert and oriented this morning. I asked the nurse to take off restraint and see how he is doing. If patient is doing well will take off all the restraints and put him on clear liquid diet. Start him on ice chips for now. I communicated with the nurse about this and she understood. 09/03/2020; patient was off restraint. Patient did not need any bands overnight. Patient started tolerated clear liquid diet and will advance to full liquid diet postop day 5 status post laparotomy and lysis of adhesions secondary to small bowel obstruction. Patient showed improvement. Patient had bowel movement. Patient is doing well and not in alcohol withdrawal DT. Disposition is per surgery. Patient wants to go home. History Interval history: Patient was seen and evaluated this morning Patient was alert and oriented Patient did not have any fever overnight Hospitalist Physical - Physical exam Narrative exam: Not in cardiopulmonary distress. The patient appeared well nourished and normally developed. Vital signs as documented. Head exam is unremarkable. No scleral icterus . Neck is without jugular venous distension, thyromegaly, or carotid bruits. Lungs are clear to auscultation. Cardiac exam reveals regular rate and Rhythm. Tachycardia. Abdominal exam reveals clean laparotomy incision. Extremities are nonedematous and both femoral and pedal pulses are normal. 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 - Constitutional Vitals: Temp Pulse Resp BP Pulse Ox 99.8 F H 87 20 114/78 96 09/03/20 06:00 09/03/20 06:00 09/03/20 06:00 09/03/20 06:00 09/02/20 21:04 General appearance: Present: mild distress HEART Score - HEART Score Troponin: Troponin T < 0.010 ng/mL (0.00-0.029) 08/29/20 02:19 Results - Labs CBC & Chem 7: 08/31/20 14:37 09/03/20 05:19 Labs: Laboratory Last Values WBC 9.2 K/mm3 (4.5-11.0) 08/31/20 14:37 RBC 3.77 M/mm3 (3.65-5.03) 08/31/20 14:37 Hgb 12.7 gm/dl (11.8-15.2) 08/31/20 14:37 Hct 37.2 % (35.5-45.6) 08/31/20 14:37 MCV 99 fl (84-94) H 08/31/20 14:37 MCH 34 pg (28-32) H 08/31/20 14:37 MCHC 34 % (32-34) 08/31/20 14:37 RDW 13.7 % (13.2-15.2) 08/31/20 14:37 Plt Count 118 K/mm3 (140-440) L 08/31/20 14:37 [place] % (Auto) Test Driller 08/26/20 04:20 Add Manual Diff Complete 08/26/20 04:20 Total Counted 100 08/26/20 04:20 Seg Neuts % (Manual) 67.0 % (40.0-70.0) 08/26/20 04:20 Lymphocytes % (Manual) 21.0 % (13.4-35.0) 08/26/20 04:20 Monocytes % (Manual) 12.0 % (0.0-7.3) H 08/26/20 04:20 Eosinophils % (Manual) 1.0 % (0.0-4.3) 08/25/20 09:15 Basophils % (Manual) 1.0 % (0.0-1.8) 08/25/20 09:15 Nucleated RBC % Not Reportable 08/26/20 04:20 Seg Neutrophils # Man 3.1 K/mm3 (1.8-7.7) 08/26/20 04:20 Band Neutrophils # 0.0 K/mm3 08/26/20 04:20 Lymphocytes # (Manual) 1.0 K/mm3 (1.2-5.4) L 08/26/20 04:20 Abs React Lymphs (Man) 0.0 K/mm3 08/26/20 04:20 Monocytes # (Manual) 0.6 K/mm3 (0.0-0.8) 08/26/20 04:20 Eosinophils # (Manual) 0.0 K/mm3 (0.0-0.4) 08/26/20 04:20 Basophils # (Manual) 0.0 K/mm3 (0.0-0.1) 08/26/20 04:20 Metamyelocytes # 0.0 K/mm3 08/26/20 04:20 Myelocytes # 0.0 K/mm3 08/26/20 04:20 Promyelocytes # 0.0 K/mm3 08/26/20 04:20 Blast Cells # 0.0 K/mm3 08/26/20 04:20 WBC Morphology Not Reportable 08/26/20 04:20 Hypersegmented Neuts Not Reportable 08/26/20 04:20 Hyposegmented Neuts Not Reportable 08/26/20 04:20 Hypogranular Neuts Not Reportable 08/26/20 04:20 Smudge Cells Not Reportable 08/26/20 04:20 Toxic Granulation Not Reportable 08/26/20 04:20 Toxic Vacuolation Not Reportable 08/26/20 04:20 Dohle Bodies Not Reportable 08/26/20 04:20 Pelger-Huet Anomaly Not Reportable 08/26/20 04:20 Layla Rods Not Reportable 08/26/20 04:20 Platelet Estimate Consistent w auto 08/26/20 04:20 Clumped Platelets Not Reportable 08/26/20 04:20 Plt Clumps, EDTA Not Reportable 08/26/20 04:20 Large Platelets Few 08/26/20 04:20 Giant Platelets Not Reportable 08/26/20 04:20 Platelet Satelliting Not Reportable 08/26/20 04:20 Plt Morphology Comment Not Reportable 08/26/20 04:20 RBC Morphology Normal 08/26/20 04:20 Dimorphic RBCs Not Reportable 08/26/20 04:20 Polychromasia Not Reportable 08/26/20 04:20 Hypochromasia Not Reportable 08/26/20 04:20 Poikilocytosis Not Reportable 08/26/20 04:20 Anisocytosis Not Reportable 08/26/20 04:20 Microcytosis Not Reportable 08/26/20 04:20 Macrocytosis Not Reportable 08/26/20 04:20 Spherocytes Not Reportable 08/26/20 04:20 Pappenheimer Bodies Not Reportable 08/26/20 04:20 Sickle Cells Not Reportable 08/26/20 04:20 Target Cells Not Reportable 08/26/20 04:20 Tear Drop Cells Not Reportable 08/26/20 04:20 Ovalocytes Not Reportable 08/26/20 04:20 Helmet Cells Not Reportable 08/26/20 04:20 [place] Bodies Not Reportable 08/26/20 04:20 [place] Rings Not Reportable 08/26/20 04:20 [place] Cells Not Reportable 08/26/20 04:20 Bite Cells Not Reportable 08/26/20 04:20 Crenated Cell Not Reportable 08/26/20 04:20 Elliptocytes Not Reportable 08/26/20 04:20 Acanthocytes (Spur) Not Reportable 08/26/20 04:20 Rouleaux Not Reportable 08/26/20 04:20 Hemoglobin C Crystals Not Reportable 08/26/20 04:20 Schistocytes Not Reportable 08/26/20 04:20 Malaria parasites Not Reportable 08/26/20 04:20 Adam Bodies Not Reportable 08/26/20 04:20 Hem Pathologist Commnt No 08/26/20 04:20 PT 13.4 Sec. (12.2-14.9) 08/28/20 08:00 INR 0.96 (0.87-1.13) 08/28/20 08:00 Sodium 142 mmol/L (137-145) D 09/03/20 05:19 Potassium 3.5 mmol/L (3.6-5.0) L 09/03/20 05:19 Chloride 107.7 mmol/L (98-107) H 09/03/20 05:19 Carbon Dioxide 25 mmol/L (22-30) 09/03/20 05:19 Anion Gap 13 mmol/L 09/03/20 05:19 BUN 17 mg/dL (9-20) 09/03/20 05:19 Creatinine 0.8 mg/dL (0.8-1.3) 09/03/20 05:19 Estimated GFR > 60 ml/min 09/03/20 05:19 BUN/Creatinine Ratio 21 % 09/03/20 05:19 Glucose 104 mg/dL (75-100) H 09/03/20 05:19 POC Glucose 124 mg/dL (70-105) H 08/25/20 22:50 Calcium 8.3 mg/dL (8.4-10.2) L 09/03/20 05:19 Magnesium 1.90 mg/dL (1.7-2.3) 08/29/20 23:22 Total Bilirubin 1.30 mg/dL (0.1-1.2) H 08/26/20 04:20 AST 18 units/L (5-40) 08/26/20 04:20 ALT 19 units/L (7-56) 08/26/20 04:20 Alkaline Phosphatase 60 units/L (35-129) 08/26/20 04:20 Troponin T < 0.010 ng/mL (0.00-0.029) 08/29/20 02:19 Total Protein 7.1 g/dL (6.3-8.2) 08/26/20 04:20 Albumin 4.2 g/dL (3.9-5) 08/26/20 04:20 Albumin/Globulin Ratio 1.4 % 08/26/20 04:20 Urine Color [place] (Yellow) 08/25/20 08:34 Urine Turbidity Slightly-cloudy (Clear) 08/25/20 08:34 Urine pH 5.0 (5.0-7.0) 08/25/20 08:34 Ur Specific [place] 1.027 (1.003-1.030) 08/25/20 08:34 Urine Protein 100 mg/dl mg/dL (Negative) 08/25/20 08:34 Urine Glucose (UA) Neg mg/dL (Negative) 08/25/20 08:34 Urine Ketones Tr mg/dL (Negative) 08/25/20 08:34 Urine Blood Neg (Negative) 08/25/20 08:34 Urine Nitrite Neg (Negative) 08/25/20 08:34 Urine Bilirubin Neg (Negative) 08/25/20 08:34 Urine Urobilinogen 4.0 mg/dL (<2.0) 08/25/20 08:34 Ur Leukocyte Esterase Neg (Negative) 08/25/20 08:34 Urine WBC (Auto) 7.0 /HPF (0.0-6.0) H 08/25/20 08:34 Urine RBC (Auto) 2.0 /HPF (0.0-6.0) 08/25/20 08:34 U Epithel Cells (Auto) 1.0 /HPF (0-13.0) 08/25/20 08:34 Urine Bacteria (Auto) 1+ /HPF (Negative) 08/25/20 08:34 Urine Mucus 3+ /HPF 08/25/20 08:34 Blood Type A POSITIVE 08/29/20 08:27 Antibody Screen Negative 08/29/20 08:27 Microbiology: Microbiology 08/31/20 07:58 Peripheral/Venous Blood Culture - Preliminary NO GROWTH AFTER 48 HOURS 08/31/20 07:58 Peripheral/Venous Blood Culture - Preliminary NO GROWTH AFTER 48 HOURS Yun/IV: Voiding Method Condom Catheter Active Medications - Current Medications Current Medications: Generic Name Dose Route Start Last Admin Trade Name Freq PRN Reason Stop Dose Admin Acetaminophen 650 mg 08/25/20 17:12 Acetaminophen 325 Mg Tab PO Q4H PRN Pain MILD(1-3)/Fever >100.5/MENJIVAR Acetaminophen 650 mg 08/31/20 06:05 08/31/20 13:07 Acetaminophen 650 Mg Rect Supp CA 650 mg Q6H PRN Administration Pain, Mild (1-3) Albuterol 2.5 mg 08/25/20 17:12 Albuterol 2.5 Mg/3 Ml Nebu IH Q4HRT PRN Shortness Of Breath Benzocaine/Menthol 1 each 08/26/20 11:30 08/28/20 21:18 Benzocaine/Menthol Lozenge MM 1 each Q2H PRN Administration Sore Throat Dextrose 25 gm 08/30/20 07:32 Dextrose 50% In Water (25gm) 50 Ml Vial IV Q30MIN PRN Hypoglycemia Protocol Enalaprilat 1.25 mg 08/26/20 12:00 09/03/20 07:11 Enalaprilat 2.5 Mg/2 Ml Inj IV Not Given Q6HR BRIAN Hydralazine HCl 10 mg 08/26/20 10:00 08/28/20 23:58 Hydralazine 20 Mg/1 Ml Inj IV 10 mg Q4HR PRN Administration Hypertension Piperacillin Sod/Tazobactam Sod 4.5 gm in 100 mls @ 200 mls/hr 08/31/20 08:00 09/03/20 00:20 Zosyn/Ns 4.5gm/100ml IV 200 mls/hr Q8H BRIAN Administration Dextrose 1,000 mls @ 75 mls/hr 09/01/20 09:00 09/02/20 08:26 D5w IV 75 mls/hr DIRECT BRIAN Administration Lorazepam 4 mg 08/29/20 02:54 09/01/20 22:56 Lorazepam 2 Mg/Ml Vial IV 4 mg Q1H PRN [facility] Lorazepam 2 mg 08/29/20 02:54 08/30/20 18:48 Lorazepam 2 Mg/Ml Vial IV 2 mg Q1H PRN Administration CIWA-Ar 8-15 Lorazepam 4 mg 08/29/20 02:54 Lorazepam 2 Mg/Ml Vial IV Q15MIN PRN CIWA-Ar >25 Multivitamins 1 each 09/05/20 10:00 Multivitamins ,Therapeutic Tab PO DAILY BRIAN Ondansetron HCl 4 mg 08/25/20 17:12 09/01/20 14:24 Ondansetron 4 Mg/2 Ml Inj IV 4 mg Q8H PRN Administration Nausea And Vomiting Pantoprazole Sodium 40 mg 08/27/20 18:00 09/02/20 17:52 Pantoprazole 40 Mg Inj IV 40 mg QDAY BRIAN Administration Sodium Chloride 10 ml 08/25/20 22:00 09/02/20 10:00 Sodium Chloride 0.9% 10 Ml Flush Syringe IV 10 ml BID BRIAN Administration Sodium Chloride 10 ml 08/25/20 17:12 Sodium Chloride 0.9% 10 Ml Flush Syringe IV PRN PRN LINE FLUSH Sterile Water 10 ml 08/30/20 03:13 08/30/20 04:39 Water For Inj Sterile (Pf) 10 Ml IM 1.2 ml DIRECT BRIAN Administration Nutrition/Malnutrition Assess - Dietary Evaluation Nutrition/Malnutrition Findings: Nutrition Notes Start: 09/01/20 16:04 Freq: Status: Active Protocol: Document 09/01/20 16:04 INDU (Rec: 09/01/20 16:09 [facility] [id number]) Nutrition Notes Need for Assessment generated from: LOS Initial or Follow up Assessment Current Diagnosis Small Bowel Obstruction Other Pertinent Diagnosis s/p exp lap with lysis of adhesions, EtOH withdrawal Current Diet NPO Labs/Tests Na 150 Pertinent Medications D5W at 75ml/hr Height 6 ft 1 in Weight 81.647 kg [place] Body Weight (kg) 83.63 BMI 23.7 Weight Status Appropriate Subjective/Other Information Pt screened for LOS. He is Day 7 NPO. May start cl liq diet today. Pt on CIWA protocol for EtOH withdrawal. Burn Absent Trauma Absent Minimum of two criteria No #1 Nutrition Diagnosis Altered GI function Etiology SBO As Evidenced by Signs and Symptoms pt been NPO for 7 days Is patient on ventilator? No Is Patient Ambulatory and/or Out of Bed No REE-([facility]-confined to bed) 2073.332 Calculation Used for Recommendations Nathan Barbosa Additional Notes Pro needs 0.8-1g/k-82g/ day Fluid needs 1ml/kcal Nutrition Intervention Change Diet Order: Advanced diet when medically feasible Goal #1 Diet advancement to meet nutrient needs Anticipated Discharge Needs: Unable to identify at this time Follow-Up By: 09/04/20 Additional Comments F/U: diet advancement
[2020-09-03] MEDS ORDERED: POTASSIUM CHLORIDE ER 20 MEQ TAB PO SCH (08:00)
[2020-09-03] MEDS: DEXTROSE 5% IN WATER 1,000 ML IV SCH (08:36)
[2020-09-03] MEDS: PANTOPRAZOLE 40 MG INJ IV SCH (10:21)
--- NOTE | 2020-09-03 10:44 | Progress Note ---
Assessment and Plan POD# 5 s/p ex-lap with JEREMIAH for SBO. Afebrile and stable with agitation likely due to alcohol withdrawal. Showing signs of resolved post op ileus. Will start on full liquds and advance to soft diet for dinner if tolerates full liquids. Pt should be fed without restraints to decrease aspiration risk. And do not leave liquids unattended in room. Can be discharged on soft diet if tolerates from a surgical perspective. Subjective Date of service: 09/03/20 Narrative: No acute events overnight. Patient says he has been passing gas and had 2 bowel movements. Patient been tolerating clear liquids without difficulty. Patient is asking for his diet to be advanced. Patient denies pain, nausea vomiting. Objective Vital Signs - 12hr 09/03/20 09/03/20 00:00 06:00 Temperature 99.6 F 99.8 F H Pulse Rate 62 87 Respiratory 20 Rate Blood Pressure 98/63 114/78 [Left] - General physical appearance well developed, well nourished, no distress, no pain - Respiratory normal expansion, normal respiratory effort - Abdomen soft, not tender, not distended, other (staple line intact) - Labs 08/31/20 14:37 09/03/20 05:19 Diabetes panel 09/03/20 Range/Units 05:19 Sodium 142 D (137-145) mmol/L Potassium 3.5 L (3.6-5.0) mmol/L Chloride 107.7 H (98-107) mmol/L Carbon Dioxide 25 (22-30) mmol/L BUN 17 (9-20) mg/dL Creatinine 0.8 (0.8-1.3) mg/dL Glucose 104 H (75-100) mg/dL Calcium 8.3 L (8.4-10.2) mg/dL Calcium panel 09/03/20 Range/Units 05:19 Calcium 8.3 L (8.4-10.2) mg/dL Pituitary panel 09/03/20 Range/Units 05:19 Sodium 142 D (137-145) mmol/L Potassium 3.5 L (3.6-5.0) mmol/L Chloride 107.7 H (98-107) mmol/L Carbon Dioxide 25 (22-30) mmol/L BUN 17 (9-20) mg/dL Creatinine 0.8 (0.8-1.3) mg/dL Glucose 104 H (75-100) mg/dL Calcium 8.3 L (8.4-10.2) mg/dL Adrenal panel 09/03/20 Range/Units 05:19 Sodium 142 D (137-145) mmol/L Potassium 3.5 L (3.6-5.0) mmol/L Chloride 107.7 H (98-107) mmol/L Carbon Dioxide 25 (22-30) mmol/L BUN 17 (9-20) mg/dL Creatinine 0.8 (0.8-1.3) mg/dL Glucose 104 H (75-100) mg/dL Calcium 8.3 L (8.4-10.2) mg/dL
[2020-09-03] MEDS: LORazepam 2 MG/ML VIAL IV PRN (12:50)
[2020-09-03 22:31] VITALS: BP 97/68
[2020-09-04] MEDS: ENALAPRILAT 2.5 MG/2 ML INJ IV SCH ×2 (00:32→06:17)
[2020-09-04 05:58] LABS: Blood Urea Nitrogen 10 mg/dL (9-20); Calcium 8.3 mg/dL (8.4-10.2); Hemolysis Index 4
[2020-09-04 06:00] LABS: BUN/Creatinine Ratio 14
--- NOTE | 2020-09-04 10:19 | Discharge Summary ---
Providers - Providers Date of Admission: 08/25/20 17:12 Date of discharge: 09/04/20 Attending physician: CHRISTAL SAMAYOA MD 08/26/20 09:15 Consult to Physician [CONS] Routine Comment: Consulting Provider: LITTLE LARA Physician Instructions: Reason For Exam: SBO 08/30/20 15:10 Occupational Therapy Evaluate and Treat [CONS] Routine Comment: Reason For Exam: Debility Physical Therapy Evaluation and Treat [CONS] Routine Comment: Reason For Exam: Debility Primary care physician: MECHANICAL MAINTENANCE FOREMAN Hospitalization Reason for admission: Small bowel obstruction, alcohol withdrawal DT Condition: Stable Procedures: Status post laparotomy and lysis of adhesion Hospital course: History of present illness: 49 YO Male with HTN, CAD S/P Stent Placement, PA, Nicotine Dependence presents to ED for evaluation. Patient reports "my stomach hurts". Patient states that he has experienced abdominal discomfort, distention, and unable to keep food down over the past 2 days with persistent symptoms over the same timeframe. Patient denies flatus as well as bowel movement during the same timeframe. Patient transported to [facility] via private vehicle for further care and evaluation of the aforementioned symptoms. The patient was [place] [facility] [place] [place] All lab and imaging studies reviewed. Patient underwent CT scan of the abdomen pelvis and was found to have a small bowel obstruction, volume depletion, as well as hyponatremia. Patient admitted to surgical floor and treated with bowel rest and IV fluid resuscitation therapy, as well as pain control. Surgical team consulted in ED. Patient denies fever, chills, chest pain, palpitation, productive cough, skin rash, recent contact, or known exposure to COVID-19. Prior admission on 07/02/2015 reviewed. All medication listed at time of admission has been reconciled. Hospital course 08/26: Continue supportive care. Patient reports to me that he drinks alcohol and has withdrawal symptoms when not drinking. We will start him on CIWA protocol in addition to banana bag with vitamins. Continue managementindicated by surgery. Patient has mild elevation in total bilirubin is also a concern for possible underlying UTI. Blood pressure mildly elevated will also address this. 15 minutes counseling provided to the patient on lifestyle modification and preventive care including tobacco use and alcohol use. He verbalized understanding 08/27: Continue supportive care. Follow imaging studies. I discussed with the sister and the patient's mother in detail. Hypokalemia. 08/28: Despite reported bowel movement x-ray of the abdomen shows slightly worse bowel obstruction. Will await further input from surgeon. At this time continue NG tube to low intermittent suction. 08/29: Patient overnight became confused possible DTs despite being on CIWA protocol and also on thiamine replacement. Continue current management we will change fluids to banana bag. I also updated the family patient's sister on new developments. Will obtain a CT of the head to rule out any acute pathology although accounted for. Acute metabolic encephalopathy Delirium tremens Small bowel obstruction due to adhesions Current Visit: Yes Status: Acute Plan to address problem: CT scan abdomen and pelvis, serial abdominal exam, bowel rest, IV fluid resuscitation therapy, surgical team consulted in ED, NG tube placement as per surgical team. Nicotine dependence Current Visit: Yes Status: Acute Qualifiers: Nicotine product type: cigarettes Substance use status: in withdrawal Qualified Code(s): F17.213 - Nicotine dependence, cigarettes, with withdrawal Plan to address problem: Smoking cessation counseling, supportive care, behavior change counseling, +15 minutes. Hyponatremia Current Visit: Yes Status: Acute Plan to address problem: IV fluid resuscitation therapy, BMP, repeat BMP in a.m. CAD (coronary artery disease) Current Visit: Yes Status: Acute Plan to address problem: Risk factor reduction, supportive care. EtOH use disorder CIWA protocol as indicated above DVT prophylaxis Current Visit: Yes Status: Acute Plan to address problem: SCD to bilateral lower extremities while in bed, patient is ambulatory 08/30/2020; patient had laparotomy and lysis of adhesion yesterday, general surgery is following. CT head was done and negative for acute intracranial pathology. Patient was agitated and trying to get out of the bed. Patient was requiring 4 mg of IV Ativan and despite that patient was trying to get out of the bed. Patient is not appropriate for floor management and he can be transferred to [facility] for close monitoring and management. Transfer order placed. Continue with CIWA protocol. 08/31/2020; patient had episodes of fever overnight and I ordered UA, chest x- ray, blood culture and empiric IV Zosyn. Patient is on restraints. Patient is in alcohol withdrawal and will continue with CIWA protocol. Patient had bowel movement this morning. Patient is still on NG tube, nutrition is per surgery recommendation. 09/01/2020; chest x-ray showed developing infiltrates and will continue with IV Zosyn. Blood cultures pending. Patient is on CIAK protocol for alcohol withdrawal. Patient started on ice chips. Surgery said okay to start him on clear liquid diet once he is off restraints. Hypernatremia; sodium was 150 this morning. I started the patient on D5W. Will monitor BMP 09/02/2020; patient did not have any fever overnight. Patient is on CIAK protocol for alcohol withdrawal and last dose of benzo was last night, will continue to monitor. Surgery is following and recommend to start him on clear liquid diet once he is off restraints. Hyponatremia; patient is on D5W and BMP was ordered and was not done. We will follow. Patient is alert and oriented this morning. I asked the nurse to take off restraint and see how he is doing. If patient is doing well will take off all the restraints and put him on clear liquid diet. Start him on ice chips for now. I communicated with the nurse about this and she understood. 09/03/2020; patient was off restraint. Patient did not need any bands overnight. Patient started tolerated clear liquid diet and will advance to full liquid diet postop day 5 status post laparotomy and lysis of adhesions secondary to small bowel obstruction. Patient showed improvement. Patient had bowel movement. Patient is doing well and not in alcohol withdrawal DT. Disposition is per surgery. Patient wants to go home. 09/04/2020; patient was alert and oriented, off restraints. Patient tolerated soft diet. Patient was cleared by general surgery for discharge. Patient will follow with general surgery in a week for staple removal. Patient is doing well and not in withdrawal. Patient counseled about cessation of drinking alcohol. Disposition: DC-01 TO HOME OR SELFCARE Final Discharge Diagnosis (Prints w/discharge instructions): Small bowel obstruction due to adhesion. Alcohol withdrawal DT Time spent for discharge: 32 minutes - Discharge Diagnoses (1) Small bowel obstruction due to adhesions Status: Acute (2) Alcohol abuse Status: Chronic Core Measure Documentation - Palliative Care Palliative Care/ Comfort Measures: Not Applicable - Core Measures Any of the following diagnoses?: none Exam - Physical Exam Narrative exam: Not in cardiopulmonary distress. The patient appeared well nourished and normally developed. Vital signs as documented. Head exam is unremarkable. No scleral icterus . Neck is without jugular venous distension, thyromegaly, or carotid bruits. Lungs are clear to auscultation. Cardiac exam reveals regular rate and Rhythm. Abdominal exam reveals clean laparotomy incision. Extremities are nonedematous and both femoral and pedal pulses are normal. STONEMASON HELPER: Alert and oriented x3. No focal neurologic deficit. - Constitutional Vitals: Temp Pulse Resp BP Pulse Ox 99.3 F 67 18 97/68 96 09/03/20 22:29 09/03/20 22:29 09/03/20 16:47 09/03/20 22:29 09/03/20 22:29 Plan Activity: no restrictions Weight Bearing Status: Full Weight Bearing Diet: other (GI soft diet) Wound: per wound nurse instructions Follow up with: MARLENE POE MD [Primary Care Provider] - 7 Days GEM GONZALEZ MD [Staff Physician] - 7 Days
[2020-09-04] MEDS ORDERED: PANTOPRAZOLE 40 MG TAB PO SCH (11:00)
[2020-09-05] MEDS ORDERED: MULTIVITAMINS ,THERAPEUTIC TAB PO SCH (10:00)
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
== END 2020-09-04 11:30 | disposition home or self-care (01) | DRG 335 ==
LOC: ED 08:12 → 3B-SURG 17:12 → IMCU 08-30 12:31 → 3A 08-30 21:34
PROVIDERS: ADMIT Internal Medicine; ATTEND Internal Medicine
PROC: 0D9670Z Drainage of Stomach with Drainage Device, Via Natural or Artificial Opening (ICD-10-PCS; 2020-08-25)
PROC: 0DN80ZZ Release Small Intestine, Open Approach (ICD-10-PCS; principal; 2020-08-29)
PROC: 0DNU0ZZ Release Omentum, Open Approach (ICD-10-PCS; 2020-08-29)
DX: K56.50 Intestinal adhesions [bands], unspecified as to partial versus complete obstruction (principal); G93.41 Metabolic encephalopathy; E87.1 Hypo-osmolality and hyponatremia; F17.213 Nicotine dependence, cigarettes, with withdrawal; F10.131 Alcohol abuse with withdrawal delirium; I10 Essential (primary) hypertension; I25.10 Atherosclerotic heart disease of native coronary artery without angina pectoris; I25.2 Old myocardial infarction; Z95.5 Presence of coronary angioplasty implant and graft; Z82.49 Family history of ischemic heart disease and other diseases of the circulatory system; Z20.822 Contact with and (suspected) exposure to COVID-19; Y90.9 Presence of alcohol in blood, level not specified
CPT/HCPCS: 36415; 70450; 71045; 74018; 74022; 74177; 80048; 80053; 81001; 82962; 83735; 84484; 85007; 85025; 85027; 85610; 86850; 86900; 86901; 87040; 93005; 96374; 96375; 99406; G0378; C9113; J0360; J0690; J1100; J1170; J1885; J2060; J2250; J2270; J2370; J2405; J2543; J2704; J2710; J3411; J3480; J3486; J7030; J7070; J7120; Q9967; U0003

== ENCOUNTER 2021-02-03 23:53 | Emergency (ER) | payer SELFPAY ==
[2021-02-04] MEDS ORDERED: IBUPROFEN 600 MG TAB PO ONE (00:21)
[2021-02-04] MEDS ORDERED: ONDANSETRON 4 MG ODT TAB PO ONE (00:21)
[2021-02-04] MEDS ORDERED: oxyCODONE /ACETAMINOPHEN 5-325MG TAB PO ONE (00:21)
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
[2021-02-04 02:15] VITALS: BP 105/62
== END 2021-02-04 02:14 | disposition home or self-care (01) ==
LOC: ED 23:53
DX: S46.912A Strain of unspecified muscle, fascia and tendon at shoulder and upper arm level, left arm, initial encounter (principal); S20.212A Contusion of left front wall of thorax, initial encounter; I10 Essential (primary) hypertension; V49.59XA Passenger injured in collision with other motor vehicles in traffic accident, initial encounter; Y93.89 Activity, other specified; Y92.89 Other specified places as the place of occurrence of the external cause; Y99.8 Other external cause status
CPT/HCPCS: 99283; J3490; Q0162